=== PATIENT | female | born 1975 | race Caucasian/White ===

== ENCOUNTER 2016-09-03 14:53 | Observation (INO) | payer MEDICARE, OTHER ==
--- NOTE | 2016-09-03 15:56 | ED ---
General Adult HPI - General Chief complaint: Recheck/Abnormal Lab/Rx Stated complaint: Missed Dialysis Treatments Time Seen by Provider: 09/03/16 15:41 Source: patient, family Mode of arrival: wheelchair Limitations: no limitations - History of Present Illness Initial comments: This is a 40-year-old female with a history of diabetes and end-stage renal disease on dialysis who presents emergency department for missing dialysis. The patient used to get her dialysis through Dr. Kermit Morton however moved to [facility] and was in a metal lodged they're getting her dialysis. She was released last week and received her last dialysis approximately 5 days ago. Her last dialysis was supposed to be 2 days ago however her on the couch and she was not able to go to dialysis either then or today. Patient currently denies any symptoms whatsoever. No chest pain or palpitations. No other complaints. - Related Data Home Medications Medication Instructions Recorded Confirmed Atorvastatin [Lipitor] 40 mg PO HS 09/03/16 09/03/16 Levothyroxine Sodium [Synthroid] 25 mcg PO DAILY 09/03/16 09/03/16 NIFEdipine [NIFEdipine ER] 90 mg PO DAILY 09/03/16 09/03/16 OXcarbazepine [Trileptal] 150 mg PO DAILY 09/03/16 09/03/16 Ra Folic Acid 800mcg 1 tab PO DAILY 09/03/16 09/03/16 Sevelamer [Renvela] 800 mg PO TID 09/03/16 09/03/16 Valproic Acid 250 mg PO Q8HR 09/03/16 09/03/16 Allergies Allergy/AdvReac Type Severity Reaction Status Date / Time No Known Allergies Allergy Verified 09/03/16 15:59 Review of Systems ROS Statement: Those systems with pertinent positive or pertinent negative responses have been documented in the HPI. ROS Other: All systems not noted in ROS Statement are negative. Past Medical History Past Medical History: Diabetes Mellitus, Dialysis, Hypertension, Seizure Disorder Additional Past Medical History / Comment(s): blind History of Any Multi-Drug Resistant Organisms: None Reported Additional Past Surgical History / Comment(s): right arm shunt. toes amputation. left foot Past Psychological History: No Psychological Hx Reported Smoking Status: Never smoker Past Alcohol Use History: None Reported Past Drug Use History: None Reported General Exam - General Exam Comments Initial Comments: Constitutional: Awake alert Appears comfortable Head: Normocephalic atraumatic Eyes: no conjunctival injection No scleral icterus EOMI Neck: No JVD Supple Heart: Regular rate rhythm normal S1-S2 no murmurs Lungs: Clear to auscultation bilaterally No wheezing No rales Abdomen: Soft nondistended nontender Extremities: Non edematous DP pulses intact Radial pulses intact Neuro: A&Ox3 No focal neurologic deficits Psych: Appropriate mood and affect Limitations: no limitations Course Vital Signs 09/03/16 09/03/16 15:02 18:19 Temperature 97.9 F Pulse Rate 89 77 Respiratory 20 18 Rate Blood Pressure 136/63 169/77 O2 Sat by Pulse 100 99 Oximetry Medical Decision Making - Medical Decision Making Is a 40-year-old female presents emergency department for missing dialysis. Had no symptoms. She did have an elevated phosphorus however no however significant electrolyte abnormalities. I spoke with Dr. Dial who recommended observation for dialysis. The patient was updated and agrees. EKG showed normal sinus rhythm with a rate of 85. No abnormal ST segment changes or T- wave inversions. QTC is 476. No other interval changes. No ectopy. - Lab Data Result diagrams: 09/03/16 16:00 09/03/16 16:00 Lab Results 09/03/16 09/03/16 Range/Units 16:00 16:00 WBC 7.8 (3.8-10.6) k/uL RBC 2.88 L (3.80-5.40) m/uL Hgb 9.8 L (11.4-16.0) gm/dL Hct 27.6 L (34.0-46.0) % MCV 95.8 (80.0-100.0) fL MCH 33.9 (25.0-35.0) pg MCHC 35.4 (31.0-37.0) g/dL RDW 13.3 (11.5-15.5) % Plt Count 219 (150-450) k/uL Neutrophils % 65 % Lymphocytes % 26 % Monocytes % 6 % Eosinophils % 1 % Basophils % 0 % Neutrophils # 5.1 (1.3-7.7) k/uL Lymphocytes # 2.0 (1.0-4.8) k/uL Monocytes # 0.5 (0-1.0) k/uL Eosinophils # 0.1 (0-0.7) k/uL Basophils # 0.0 (0-0.2) k/uL Sodium 139 (137-145) mmol/L Potassium 4.8 (3.5-5.1) mmol/L Chloride 100 (98-107) mmol/L Carbon Dioxide 19 L (22-30) mmol/L Anion Gap 20 mmol/L BUN 79 H (7-17) mg/dL Creatinine 13.10 H* (0.52-1.04) mg/dL Est GFR (MDRD) Af Amer 4 (>60 ml/min/1.73 sqM) Est GFR (MDRD) Non-Af 3 (>60 ml/min/1.73 sqM) Glucose 110 H (74-99) mg/dL Calcium 10.2 (8.4-10.2) mg/dL Phosphorus 7.7 H (2.5-4.5) mg/dL Magnesium 2.2 (1.6-2.3) mg/dL Total Bilirubin 0.5 (0.2-1.3) mg/dL AST 9 L (14-36) U/L ALT 19 (9-52) U/L Alkaline Phosphatase 72 (38-126) U/L Total Protein 7.3 (6.3-8.2) g/dL Albumin 4.5 (3.5-5.0) g/dL Disposition Clinical Impression: ESRD (end stage renal disease) Disposition: ADMITTED IP TO THIS [facility] Condition: Stable
[2016-09-03 16:08] LABS: Basophils % (A) 0 %; CH 34.4; Eosinophils # (A) 0.1 k/uL (0-0.7); Eosinophils % (A) 1 %; HCT 27.6 % (34.0-46.0); HDW 3.11; HGB 9.8 gm/dL (11.4-16.0); Luc # (Auto) 0.11; Luc % (Auto) 2; Lymphocytes % (A) 26 %; MCH 33.9 pg (25.0-35.0); MCHC 35.4 g/dL (31.0-37.0); MCV 95.8 fL (80.0-100.0); Mean Platelet Volume 7.3; Monocytes # (A) 0.5 k/uL (0-1.0); Monocytes % (A) 6 %; Neutrophils # (A) 5.1 k/uL (1.3-7.7); Neutrophils % (A) 65 %; RBC 2.88 m/uL (3.80-5.40); RDW 13.3 % (11.5-15.5); WBC 7.8 k/uL (3.8-10.6); WBC (Perox) 7.85
[2016-09-03 16:23] LABS: Calcium 10.2 mg/dL (8.4-10.2); Magnesium 2.2 mg/dL (1.6-2.3); Phosphorous 7.7 mg/dL (2.5-4.5); Potassium 4.8 mmol/L (3.5-5.1); Total Bilirubin 0.5 mg/dL (0.2-1.3); Total Protein 7.3 g/dL (6.3-8.2)
[2016-09-03] MEDS ORDERED: NALOXONE 0.4 MG/ML 1 ML VIAL IV PRN (18:12)
[2016-09-03] MEDS: SEVELAMER 800 MG TAB PO SCH (21:40)
[2016-09-03] MEDS: ATORVASTATIN 40 MG TAB PO SCH (21:41)
[2016-09-03] MEDS: VALPROIC ACID ORAL SOLN 250 MG/5 ML CUP PO SCH (21:43)
[2016-09-03] MEDS ORDERED: HYDROcodone/APAP 5-325MG 1 EACH TAB PO PRN (21:55)
[2016-09-03] MEDS ORDERED: TEMAZEPAM 15 MG CAP PO PRN (21:55)
[2016-09-03] MEDS ORDERED: ALPRAZolam 0.25 MG TAB PO PRN (21:55)
--- NOTE | 2016-09-03 22:21 | XR ---
EXAM: XR Chest, 1 View CLINICAL HISTORY: Reason: chf TECHNIQUE: Frontal view of the chest. COMPARISON: None. FINDINGS: Limitations: Note some inherent limitations of the portable nature of the exam and patient body habitus. Also, patient is slightly rotated towards the right. Lungs: Multiple punctate nodular opacities are seen within the right lower lung field. Left lung, right mid and upper lung perez are clear. Pleural space: Unremarkable. No gross pleural effusion, nor pneumothorax. Heart: Mild cardiomegaly. Mediastinum: Within normal limits Bones/joints: Intact, with mild degenerative changes present Vasculature: Vascular stents including along the left subclavian and axillary levels, and an additional overlapping upper extremity stent or graft is present. IMPRESSION: 1. Heterogeneous nodular opacities within the right lower lung field, which may be on an infectious or inflammatory basis including previous aspiration. Comparison to prior studies may be useful to assess for chronicity and guide timing of future follow-up, to reevaluate for clearing. 2. Additional findings as above.
[2016-09-04] MEDS: LEVOTHYROXINE 25 MCG TAB PO SCH (05:59)
--- NOTE | 2016-09-04 08:16 | HP ---
DATE OF ADMISSION: DATE OF SERVICE: 09/03/2016 CHIEF COMPLAINT: Missed hemodialysis. HISTORY OF PRESENT ILLNESS: This 40-year-old woman with a past medical history of multiple medical problems including CVA, TIA, diabetes mellitus type 2, chronic renal failure on hemodialysis, hypertension, pneumonia, seizure disorder, hypothyroidism, history of bilateral blindness because of diabetic retinopathy, being followed by Dr. Andrew Chavez in [place] was recently moved to [place]. The patient was receiving hemodialysis there, but apparently passed a couple of days ago and the patient missed hemodialysis and the patient was taken to [facility] for further evaluation and treatment. There is no history of fever or rigor. No history of headache, loss of consciousness or seizures. Patient is asymptomatic at this time. Apparently the patient has hyperphosphatemia. PAST MEDICAL HISTORY: History of chronic renal failure, diabetes mellitus type 2, on hemodialysis, hypertension, pneumonia, seizure disorder, hypothyroidism. Medications prior to admission include: 1. Renvela 800 mg p.o. t.i.d. 2. Lipitor 40 mg q.h.s. 3. Valproic acid 250 mg p.o. q.8. 4. Folic acid 1 p.o. daily. 5. Synthroid 25 mcg p.o. daily. 6. Trileptal 150 mg p.o. daily. 7. Nifedipine 90 mg p.o. daily. ALLERGIES: None. FAMILY HISTORY: CVA, TIA, myocardial infarction, renal disease and amputation in the family. SOCIAL HISTORY: No history of smoking. No history of alcohol intake. REVIEW OF SYSTEMS: ENT: No diminishing hearing. Diminished vision. CARDIOVASCULAR SYSTEM: As mentioned earlier. RESPIRATORY SYSTEM: As mentioned earlier. GI: No nausea. : No dysuria. NERVOUS SYSTEM: As mentioned earlier. ALLERGY/IMMUNOLOGY: No history of asthma. MUSCULOSKELETAL: As mentioned earlier. HEMATOLOGY/ONCOLOGY: No history of anemia. ENDOCRINE: As mentioned earlier. CONSTITUTIONAL: As mentioned earlier. DERMATOLOGY: Negative. RHEUMATOLOGY: Negative. PSYCHIATRY: As mentioned earlier. OPHTHALMOLOGY: As mentioned earlier. PHYSICAL EXAMINATION: The patient s alert and oriented x3. Pulse is 86, blood pressure 145/67, respirations 18, temperature 98.2, pulse ox 99% on room air. HEENT: Conjunctivae normal. Oral mucosa moist. NECK: ( ) CARDIOVASCULAR: S1 and S2, muffled. No S3, no S4. ( ) RESPIRATORY: Breath sounds diminished at the bases. Scattered rhonchi and crackles. ABDOMEN: Soft, obese, nontender. No mass palpable. LEGS: No edema, no swelling. NERVOUS SYSTEM: Higher function as mentioned. Moves all 4 limbs. No focal motor or sensory deficits. LYMPHATICS: No lymphadenopathy of neck, axillae or groin. SKIN: No ulcers, rashes or bleeding. EXAMINATION OF THE EYES: Vision diminished bilaterally. The labs are EKG at this time shows normal sinus rhythm, no acute changes. Other labs are WBC 7.8, hemoglobin 9.8. Creatinine is 13.10. Glucose 110. ASSESSMENT: 1. Chronic renal failure on hemodialysis and chronic kidney disease stage V on hemodialysis and missed hemodialysis. 2. Increased creatinine. 3. Increased random blood sugar. 4. Anemia, normocytic anemia of chronic disease. 5. History of diabetes mellitus type 2. 6. History of cerebrovascular accident, transient ischemic attack. 7. History of pneumonia. 8. History of seizures disorder. 9. History of hypothyroidism. 10. History of retinal hemorrhage and diabetic retinopathy. 11. History of gait dysfunction and falls. 12. History of left arm shunt. 13. FULL CODE. RECOMMENDATIONS AND DISCUSSION: This 40-year-old woman who presented with multiple complex medical issues, we will monitor the patient closely. Continue the current medications. Continue symptomatic treatment. Otherwise, at this time I would recommend monitor closely and initiate hemodialysis. Repeat labs. Otherwise prognosis is guarded. Would also recommended a portal chest x-ray to rule out the possibility of fluid overload. Prognosis guarded because of multiple complex medical issues. Further recommendations to follow.
[2016-09-04 10:15] LABS: Basophils % (A) 0 %; CH 34.4; CHCM 35.5; Eosinophils # (A) 0.1 k/uL (0-0.7); Eosinophils % (A) 1 %; HCT 26.5 % (34.0-46.0); HDW 2.95; Luc # (Auto) 0.05; Luc % (Auto) 1; Lymphocytes # (A) 1.5 k/uL (1.0-4.8); Lymphocytes % (A) 25 %; MCH 32.9 pg (25.0-35.0); MCHC 33.8 g/dL (31.0-37.0); MCV 97.3 fL (80.0-100.0); Mean Platelet Volume 6.8; Monocytes # (A) 0.3 k/uL (0-1.0); Monocytes % (A) 6 %; Neutrophils # (A) 3.9 k/uL (1.3-7.7); Neutrophils % (A) 67 %; RBC 2.72 m/uL (3.80-5.40); RDW 13.7 % (11.5-15.5); WBC 5.8 k/uL (3.8-10.6); WBC (Perox) 5.77
[2016-09-04 10:43] LABS: Calcium 9.2 mg/dL (8.4-10.2); Potassium 3.9 mmol/L (3.5-5.1)
[2016-09-04] MEDS ORDERED: GELATIN SPONGE,ABSORB (SMALL) 1 EACH SPONGE ONE (11:00)
[2016-09-04] MEDS: VALPROIC ACID ORAL SOLN 250 MG/5 ML CUP PO SCH ×3 (11:52→23:18)
[2016-09-04] MEDS: FOLIC ACID 1 MG TAB PO SCH (11:52)
[2016-09-04] MEDS: PANTOPRAZOLE 40 MG TABLET PO SCH (11:52)
[2016-09-04] MEDS: OXcarbazepine 150 MG TAB PO SCH (11:53)
[2016-09-04] MEDS: NIFEdipine XL 90 MG TAB.ER.24 PO SCH (11:53)
[2016-09-04] MEDS: SEVELAMER 800 MG TAB PO SCH ×3 (11:53→20:50)
--- NOTE | 2016-09-04 13:58 | P.NPCON ---
History of Present Illness - Reason for Consult end stage renal disease - History of Present Illness Reason for consultation: End-stage renal disease History of present illness: Patient is a 40-year-old female seen in renal consultation for end- stage renal disease. She is maintained on hemodialysis on a Thursday schedule via right upper extremity AV fistula. Patient was receiving dialysis in [place], [place]. She missed 2 treatments of hemodialysis prior to admission due to her 's . She is currently now living in [place] with her sister. She underwent hemodialysis this morning. A She is currently sitting up in chair. Denies any chest pain or shortness of breath. Denies lower extremity edema. No vomiting or diarrhea. Appetite is good. Hemodynamically she is stable. No active complaints at this time. Vital signs are stable. General: The patient appeared well nourished and normally developed. HEENT: Head exam is unremarkable. Neck is without jugular venous distension. LUNGS: Lungs are clear to auscultation and percussion. Breath sounds decreased. HEART: Rate and Rhythm are regular. First and second heart sounds normal. No murmurs, rubs or gallops. ABDOMEN: Abdominal exam reveals normal bowel sounds. Non-tender and non- distended. No evidence of peritonitis. EXTREMITITES: No clubbing, cyanosis, or edema. Past Medical History Past Medical History: CVA/TIA, Diabetes Mellitus, Dialysis, Hypertension, Pneumonia, Renal Disease, Seizure Disorder, Thyroid Disorder Additional Past Medical History / Comment(s): "BLEEDING BEHIND EYES", LT CATARACT(HAD SX W/LENS IMPLANT) STATED LEGALLY BLIND.PAST PNE-"WAS IN HOSPITAL AND HAD A STROKE( 2009) WAS IN [facility] FOR 5 MONTHS ON LIFE SUPPORT", HX FALLS-HAS FALLEN AND HIT FACE/HEAD,CONCUSSIONS.USED TO TAKE MEDS FOR [facility] BUT WHEN AT [facility] WAS TAKEN OFF MEDICATIONS. CHECKS BS DAILY, LAST SEIZURE FEW MONTHS AGO. ESRD GETS DIALYSIS M-W-F History of Any Multi-Drug Resistant Organisms: None Reported Past Surgical History: Section, Tubal Ligation Additional Past Surgical History / Comment(s): right arm shunt(ACTIVE), ( LT ARM SHUNT CLOGGED NON FUNCTIONING). toes amputated ON LT FOOT. PARTIAL left foot AMP, LT CATARACT REMOVED HAS LENS IMPLANT Past Anesthesia/Blood Transfusion Reactions: No Reported Reaction Past Psychological History: No Psychological Hx Reported Additional Psychological History / Comment(s): pt's just on thursday( is on thursday), has saddness over this but denies any thoughts of wanting to harm self. pt is and will be living with her sister cammie who willalso be her caregiver.pt had just gotten [facility] last sat.pt uses walker, w/c and has bsc at home. Smoking Status: Never smoker Past Alcohol Use History: None Reported Past Drug Use History: None Reported - Past Family History Mother Family Medical History: CVA/TIA, Myocardial Infarction (IA), Renal Disease Father Family Medical History: Congestive Heart Failure (CHF), CVA/TIA, Diabetes Mellitus, Hypertension, Vascular Disorder Additional Family Medical History / Comment(s): bka Medications and Allergies Home Medications Medication Instructions Recorded Confirmed Type Atorvastatin [Lipitor] 40 mg PO HS 09/03/16 09/03/16 History Levothyroxine Sodium [Synthroid] 25 mcg PO DAILY 09/03/16 09/03/16 History NIFEdipine [NIFEdipine ER] 90 mg PO DAILY 09/03/16 09/03/16 History OXcarbazepine [Trileptal] 150 mg PO DAILY 09/03/16 09/03/16 History Ra Folic Acid 800mcg 1 tab PO DAILY 09/03/16 09/03/16 History Sevelamer [Renvela] 800 mg PO TID 09/03/16 09/03/16 History Valproic Acid 250 mg PO Q8HR 09/03/16 09/03/16 History Allergies Allergy/AdvReac Type Severity Reaction Status Date / Time No Known Allergies Allergy Verified 09/03/16 15:59 Physical Exam Vitals: Vital Signs Temp Pulse Pulse Resp BP BP Pulse Ox 09/04/16 07:00 98.5 F 88 14 154/73 98 09/03/16 23:00 98.4 F 94 18 136/60 99 09/03/16 19:00 98.3 F 86 18 145/67 99 09/03/16 18:47 97.4 F L 80 16 156/71 100 09/03/16 18:19 77 18 169/77 99 09/03/16 15:02 97.9 F 89 20 136/63 100 Intake and Output 09/03/16 09/04/16 09/04/16 22:59 06:59 14:59 Intake Total 450 350 Balance 450 350 Intake: Oral 450 350 Other: Voiding Method Bedside Commode # Voids 1 2 Weight 88.088 kg Results - Lab Results Most recent lab results Calcium 9.2 mg/dL (8.4-10.2) 09/04/16 09:12 Phosphorus 7.7 mg/dL (2.5-4.5) H 09/03/16 16:00 Magnesium 2.2 mg/dL (1.6-2.3) 09/03/16 16:00 09/04/16 09:12 09/04/16 09:12 Assessment and Plan Plan: Assessment: #1. End-stage renal disease maintained on hemodialysis on a Thursday schedule via right upper extremity AV fistula. She missed 2 treatments of hemodialysis prior to admission due to her 's . She underwent hemodialysis this morning. #2. Chronic kidney disease mineral bone disease. #3. Hypertension with chronic kidney disease. Controlled. #4. History of seizures. #5. Anemia of chronic kidney disease. Plan: Hemodialysis again tomorrow. Maintain Renvela with meals. Start Aranesp. Potential discharge tomorrow and then she can resume dialysis as an outpatient at [facility] on a Thursday schedule. Thank you for the consultation. I will continue to follow the patient with you during her hospital stay.
[2016-09-04] MEDS ORDERED: DARBEPOETIN ALFA 40 MCG/0.4 ML SYRINGE SQ SCH (15:00)
--- NOTE | 2016-09-04 16:51 | P.PN ---
Subjective Date of service 09/04/2016. Progress note being dictated for Dr. Fernandez. Interval history: This is a 40-year-old female with history of chronic kidney disease on hemodialysis and multiple other medical issues, missed 2 episodes of hemodialysis prior to her 's a couple days ago. Relocated from [place] to [place]. Evaluated by nephrology with recommendations noted. Receiving hemodialysis today and tomorrow. Chest x-ray reporting heterogenous nodular opacity's of right lower lung field possibly infectious or inflammatory. Denies chest pain, palpitations. Review of systems: HEENT: Denies headache or focal deficits. Denies any dizziness or lightheadedness. Respiratory: Denies shortness of breath. Cardiac: Denies any chest pain, palpitations. GI: Denies any nausea, vomiting, or diarrhea. Denies any abdominal tenderness. : Denies any dysuria. Psychiatry: Denies any anxiety or depression. Active Medications Generic Name Dose Route Start Last Admin Trade Name Freq PRN Reason Stop Dose Admin Hydrocodone Bitart/Acetaminophen 1 each 09/03/16 21:55 [place] 5-325 PO Q6HR PRN Pain Alprazolam 0.25 mg 09/03/16 21:55 Xanax PO TID PRN Anxiety Atorvastatin Calcium 40 mg 09/03/16 21:00 09/03/16 21:41 Lipitor PO 40 mg HS JAGUAR Administration Darbepoetin Ash 40 mcg 09/04/16 15:00 09/04/16 15:38 Aranesp SQ 40 mcg Q7D JAGUAR Administration Folic Acid 1 mg 09/04/16 09:00 09/04/16 11:52 Folic Acid PO 1 mg DAILY JAGUAR Administration Levothyroxine Sodium 25 mcg 09/04/16 06:30 09/04/16 05:59 Synthroid PO 25 mcg 0630 JAGUAR Administration Naloxone HCl 0.2 mg 09/03/16 18:12 Narcan IV Q2M PRN Opioid Reversal Nifedipine 90 mg 09/04/16 09:00 09/04/16 11:53 Procardia Xl PO 90 mg DAILY JAGUAR Administration Oxcarbazepine 150 mg 09/04/16 09:00 09/04/16 11:53 Trileptal PO 150 mg DAILY JAGUAR Administration Pantoprazole Sodium 40 mg 09/04/16 07:30 09/04/16 11:52 Protonix PO 40 mg [id number] JAGUAR Administration Sevelamer Carbonate 800 mg 09/03/16 22:00 09/04/16 15:39 Renvela PO 800 mg TID JAGUAR Administration Temazepam 15 mg 09/03/16 21:55 Restoril PO HS PRN Insomnia Valproic Acid 250 mg 09/04/16 00:00 09/04/16 15:38 Depakene Syrup PO 250 mg Q8HR JAGUAR Administration Objective - Vital Signs Vital signs: Vital Signs Temp 98.1 F 09/04/16 15:00 Pulse 83 09/04/16 15:00 Resp 16 09/04/16 15:00 BP 162/85 09/04/16 15:00 Pulse Ox 100 09/04/16 15:00 Intake & Output 09/03/16 09/04/16 09/04/16 18:59 06:59 18:59 Intake Total 800 Output Total 200 Balance 800 -200 Weight 88.088 kg Intake: Oral 800 Output: Urine 200 Other: Voiding Method Bedside Commode # Voids 2 - Exam PHYSICAL EXAM: VITAL SIGNS: As above GENERAL: [Sitting up in bed, no acute distress] HEENT: [Pupils equal conjunctiva normal.] NECK: [Supple, no JVD] RESPIRATORY EFFORT:[ Normal] LUNGS: [Diminished, scattered rhonchi and crackles] CARDIOVASCULAR[ regular S1 and S2, no murmurs rubs or gallops, no edema] GI: [Abdomen soft, nontender, positive bowel sounds. No guarding, no rigidity] PSYCH: [Alert and oriented -3, mood and affect normal.] NEURO: [No focal deficits, moves all 4 extremities, strength and sensation grossly intact] - Labs CBC & Chem 7: 09/04/16 09:12 09/04/16 09:12 Labs: Abnormal Lab Results - Last 24 Hours (Table) 09/03/16 09/04/16 09/04/16 Range/Units 16:00 09:12 09:12 RBC 2.72 L (3.80-5.40) m/uL Hgb 9.0 L (11.4-16.0) gm/dL Hct 26.5 L (34.0-46.0) % BUN 50 H (7-17) mg/dL Creatinine 13.10 H* 7.55 H* (0.52-1.04) mg/dL Assessment and Plan Plan: 1. Chronic renal failure, stage IV on hemodialysis, missed hemodialysis. 2. [ Anemia, normocytic of chronic disease]. 3. [ Diabetes mellitus type 2]. 4. [ CVA, TIA history]. 5. [ Seizure disorder history]. 6. [ Hypothyroidism]. 7. [ History of retinal hemorrhage and diabetic retinopathy 8. Gait dysfunction with history of falls]. 9. Left arm shunt 10. Heterogenous nodular opacity's of right lower lung field possibly infectious or inflammatory per CXR, possible right lower lobe pneumonia. Plan: Continue on current medication regime ,monitoring and symptomatic treatment. Rocephin initiated along with pulmonary consult. Patient will receive hemodialysis both today and tomorrow. Case management to assist/ confirm dialysis clinic set up in [place]. Follow closely with nephrology. Discharge planning in progress. Further recommendations to follow. The impression and plan of care has been dictated as directed. : I performed a H&P examination of this patient and discussed the same with the dictator. I agree with the dictator's note. Any additional findings/opinions/ etc. will be noted.
[2016-09-04] MEDS: ATORVASTATIN 40 MG TAB PO SCH (20:50)
[2016-09-04 23:54] VITALS: RESP 18
[2016-09-05] MEDS: LEVOTHYROXINE 25 MCG TAB PO SCH (06:03)
[2016-09-05] MEDS: FOLIC ACID 1 MG TAB PO SCH (07:52)
[2016-09-05] MEDS: PANTOPRAZOLE 40 MG TABLET PO SCH (07:52)
[2016-09-05] MEDS: NIFEdipine XL 90 MG TAB.ER.24 PO SCH (07:52)
[2016-09-05] MEDS: VALPROIC ACID ORAL SOLN 250 MG/5 ML CUP PO SCH (07:54)
[2016-09-05] MEDS: OXcarbazepine 150 MG TAB PO SCH (07:54)
[2016-09-05] MEDS: SEVELAMER 800 MG TAB PO SCH (07:54)
[2016-09-05 07:58] VITALS: BP 136/73; PULSE 89; TEMP 98.4
[2016-09-05] MEDS ORDERED: GELATIN SPONGE,ABSORB (SMALL) 1 EACH SPONGE ONE (08:00)
[2016-09-05 08:38] LABS: Basophils % (A) 0 %; CH 34.1; CHCM 34.5; Eosinophils # (A) 0.1 k/uL (0-0.7); Eosinophils % (A) 2 %; HCT 26.1 % (34.0-46.0); HDW 2.98; HGB 8.8 gm/dL (11.4-16.0); Luc # (Auto) 0.05; Luc % (Auto) 1; Lymphocytes # (A) 1.8 k/uL (1.0-4.8); Lymphocytes % (A) 37 %; MCH 33.3 pg (25.0-35.0); MCHC 33.6 g/dL (31.0-37.0); MCV 99.3 fL (80.0-100.0); Mean Platelet Volume 6.8; Monocytes # (A) 0.4 k/uL (0-1.0); Monocytes % (A) 7 %; Neutrophils # (A) 2.5 k/uL (1.3-7.7); Neutrophils % (A) 53 %; RBC 2.63 m/uL (3.80-5.40); RDW 13.4 % (11.5-15.5); WBC 4.8 k/uL (3.8-10.6); WBC (Perox) 4.71
[2016-09-05 08:47] LABS: Calcium 9.5 mg/dL (8.4-10.2); Potassium 4.5 mmol/L (3.5-5.1)
--- NOTE | 2016-09-05 11:31 | PN ---
DATE OF SERVICE: 09/04/2016 This 40-year-old woman admitted with missed hemodialysis, being closely monitored. Chest x-ray showed multiple lesions in the right side. I would recommend a course of antibiotics. I have seen and evaluated the patient with the nurse practitioner. Please refer to the nurse practitioner's notes and impressions documented as scribe for further information. Otherwise, discussed with Social Work and Case Management. The patient can get hemodialysis tomorrow and the next hemodialysis next week will be arranged. The prognosis is guarded. Please note that the patient lost her recently.
--- NOTE | 2016-09-05 13:33 | PN ---
Patient is seen for followup for end-stage renal disease. She is set up for a Thursday, , Thursday schedule as outpatient. She was initially being dialyzed out of [place]. She is now living in [place]. Patient has a right arm AV fistula. On examination, she is comfortable. She is seen on dialysis, tolerating her treatment well. Blood pressure is 131/57, heart rate 96 per minute. Patient is afebrile. She appears euvolemic with no significant edema in her lower extremities. Labs show sodium 138, potassium 4.5. Hemoglobin 8.8 g/dL. ASSESSMENT: 1. End-stage renal disease on hemodialysis. Patient will be set up for Thursday, , Thursday schedule. 2. Anemia of chronic disease. 3. Hypertension, currently controlled. PLAN: Patient can be discharged post dialysis and follow up as outpatient for treatment tomorrow.
--- NOTE | 2016-09-05 13:42 | P.CNPUL ---
History of Present Illness Consult date: 09/05/16 Reason for consult: pneumonia History of present illness: This is a 40-year-old female with a history of diabetes and end-stage renal disease on dialysis who presents emergency department for missing dialysis. The patient used to get her dialysis through Dr. Kermit Morton however moved to [facility] and was in a metal lodged they're getting her dialysis. She was released last week and received her last dialysis approximately 5 days ago. Her last dialysis was supposed to be 2 days ago however her on the couch and she was not able to go to dialysis either then or today. She'll presented emergency department for that reason. The patient denies having any symptoms of chest pain cough or sputum production. No hemoptysis. No pleurisy pain no fever chills or night sweats. No significant fluid accumulation. Her chest x-ray showed some limited infiltration of the right lung base and pneumonia was suspected. Clinically however the patient denies having any respiratory complaints whatsoever. She was given IV Rocephin. She remains hemodynamically stable. She underwent a session of hemodialysis today and she'll be set with our nephrologists here in town for further dialysis sessions. She is an ex-smoker. She denies any history of bronchial asthma and emphysema. No oxygen use. No use of any inhalers or neb last medication. She has no angina. As complications of diabetes mellitus and hypertension. She has an incisional disease and she has been on hemodialysis for the past 3 years. She has also had peripheral vascular disease and diabetic wound and she has had previous inpatient and left lower extremity involving the toes. No open wounds or sores for now. No nausea vomiting or abdominal pain. Has had a previous CVA that was complete. By prolonged respiratory failure requiring insertion and subsequent removal of a tracheostomy tube. Ostomy scar can still be seen over the anterior neck area. No stridor at this point. No difficulty swallowing. No symptoms of URI. No altered mentation at this point. Review of Systems All systems: negative Constitutional: Denies chills, Denies fever Eyes: denies blurred vision, denies pain Ears, nose, mouth and throat: Denies headache, Denies sore throat Cardiovascular: Reports as per HPI, Reports shortness of breath Respiratory: Reports cough Gastrointestinal: Denies abdominal pain, Denies diarrhea, Denies nausea, Denies vomiting Genitourinary: Denies dysuria, Denies hematuria Musculoskeletal: Denies myalgias Integumentary: Denies pruritus, Denies rash Neurological: Denies numbness, Denies weakness Psychiatric: Denies anxiety, Denies depression Endocrine: Denies fatigue, Denies weight change Past Medical History Past Medical History: CVA/TIA, Diabetes Mellitus, Dialysis, Hypertension, Renal Disease, Seizure Disorder, Thyroid Disorder Additional Past Medical History / Comment(s): Obesity, diabetes mellitus, end- stage renal disease currently on hemodialysis for the past 3 years, CVA, seizure disorder, hypothyroidism, previous history of ventilator dependent respiratory failure requiring a tracheostomy tube insertion for weaning, cataracts, patient is legally blind with possible diabetic retinopathy, hx of head trauma and concussion, hypertension History of Any Multi-Drug Resistant Organisms: None Reported Past Surgical History: Section, Tubal Ligation Additional Past Surgical History / Comment(s): right arm shunt(ACTIVE), ( LT ARM SHUNT CLOGGED NON FUNCTIONING). toes amputated ON LT FOOT. PARTIAL left foot AMP, LT CATARACT REMOVED HAS LENS IMPLANT Past Anesthesia/Blood Transfusion Reactions: No Reported Reaction Past Psychological History: No Psychological Hx Reported Additional Psychological History / Comment(s): pt's just on thursday( is on thursday), has saddness over this but denies any thoughts of wanting to harm self. pt is and will be living with her sister cammie who willalso be her caregiver.pt had just gotten out of [facility] last sat.pt uses walker, w/c and has bsc at home. Smoking Status: Never smoker Past Alcohol Use History: None Reported Past Drug Use History: None Reported - Past Family History Mother Family Medical History: CVA/TIA, Myocardial Infarction ([place]), Renal Disease Father Family Medical History: Congestive Heart Failure (CHF), CVA/TIA, Diabetes Mellitus, Hypertension, Vascular Disorder Additional Family Medical History / Comment(s): bka Medications and Allergies Home Medications Medication Instructions Recorded Confirmed Type Atorvastatin [Lipitor] 40 mg PO HS 09/03/16 09/03/16 History Levothyroxine Sodium [Synthroid] 25 mcg PO DAILY 09/03/16 09/03/16 History NIFEdipine [NIFEdipine ER] 90 mg PO DAILY 09/03/16 09/03/16 History OXcarbazepine [Trileptal] 150 mg PO DAILY 09/03/16 09/03/16 History Ra Folic Acid 800mcg 1 tab PO DAILY 09/03/16 09/03/16 History Sevelamer [Renvela] 800 mg PO TID 09/03/16 09/03/16 History Valproic Acid 250 mg PO Q8HR 09/03/16 09/03/16 History Allergies Allergy/AdvReac Type Severity Reaction Status Date / Time No Known Allergies Allergy Verified 09/03/16 15:59 Physical Exam Vitals: Vital Signs Temp Pulse Resp BP Pulse Ox 09/05/16 07:00 98.4 F 89 18 136/73 98 09/04/16 23:00 99.0 F 96 18 131/57 99 09/04/16 15:00 98.1 F 83 16 162/85 100 Intake and Output 09/04/16 09/05/16 09/05/16 22:59 06:59 14:59 Intake Total 350 Balance 350 Intake: Oral 350 Other: Voiding Method Bedside Commode # Voids 1 1 # Bowel Movements 1 Head exam was generally normal. There was no scleral icterus or corneal arcus. Mucous membranes were moist.Neck was supple and without jugular venous distension, thyromegaly, or carotid bruits. Carotids were easily palpable bilaterally. There was no adenopathy. There is a scar of a previous tracheostomy tube insertion and subsequent removal over the anterior chest area.Lungs were clear to auscultation and percussion, and with normal diaphragmatic excursion. No wheezes or rales were noted. Cardiac exam revealed the PMI to be normally situated and sized. The rhythm was regular and no extrasystoles were noted during several minutes of auscultation. The first and second heart sounds were normal and physiologic splitting of the second heart sound was noted. There were no murmurs, rubs, clicks, or gallops.Abdominal exam revealed normal bowel sounds. The abdomen was soft, non-tender, and without masses, organomegaly, or appreciable enlargement of the abdominal aorta.Examination of the extremities revealed easily palpable radial, femoral and pedal pulses, the pulses however are diminished.. There was no cyanosis, clubbing or edema. The patient has a AV fistula in the left upper extremity is in position of the left toes in the left lower extremity secondary Vascular disease. Results - Laboratory Findings CBC and BMP: 09/05/16 08:15 09/05/16 08:15 Abnormal lab findings: Abnormal Labs 09/03/16 09/03/16 09/04/16 16:00 16:00 09:12 RBC 2.88 L 2.72 L Hgb 9.8 L 9.0 L Hct 27.6 L 26.5 L Carbon Dioxide 19 L BUN 79 H Creatinine 13.10 H* Glucose 110 H Phosphorus 7.7 H AST 9 L 09/04/16 09/05/16 09/05/16 09:12 08:15 08:15 RBC 2.63 L Hgb 8.8 L Hct 26.1 L Carbon Dioxide BUN 50 H 38 H Creatinine 7.55 H* 7.33 H* Glucose 113 H Phosphorus AST - Diagnostic Findings Chest x-ray: image reviewed Assessment and Plan Plan: 1 End stage renal disease on hemodialysis. The patient has missed dialysis for social reasons and the patient needs to be established with nephrology locally as the patient requires dialysis 3 times a week. The patient underwent first session of hemodialysis today. 2 limited infiltration of the lung bases, could be component of fluid overload, no clinical evidence of any pneumonia. 3 obesity 4 diabetes mellitus 5 PVOD 6 hypertension 7 hypothyroidism 8 diabetic retinopathy with legal blindness 9 history of CVA 10 history of prolonged ventilator dependent respiratory failure requiring insertion removal of tracheostomy tube 11 chronic anemia Plan Doubt any pneumonia. Patient currently is on IV Rocephin. May continue the course of Zmax 500 mg by mouth daily. Discharge per medicine. The patient needs to be seen by case workers to be established for dialysis locally. She is dialysis 3 times a week. Pulmonary status is stable at this point.
--- NOTE | 2016-09-06 15:23 | DS ---
DATE OF ADMISSION: 09/03/2016 DATE OF DISCHARGE: 09/05/2016 FINAL DIAGNOSES: 1. Chronic renal failure, stage IV, on hemodialysis, with missed hemodialysis. 2. Anemia, normocytic; anemia of chronic disease. 3. Diabetes mellitus, type 2. 4. Cerebrovascular accident, transient ischemic attack history. 5. Limited infiltration of the lung bases, possibly fluid overload secondary to hemodialysis. No evidence of pneumonia per Dr. Kohli. 6. Seizure disorder history. 7. History of hypothyroidism. 8. History of retinal hemorrhage and diabetic retinopathy. 9. History of gait dysfunction and falls. 10. History of left arm shunt. 11. Heterogeneous nodular opacity in the right lower field on the chest x-ray. DISCHARGE DISPOSITION: The patient will be discharged in stable condition with guarded prognosis. HISTORY OF PRESENT ILLNESS: This 40-year-old woman with a past medical history of multiple medical problems was admitted with missed hemodialysis and multiple other findings as listed above. Dialysis continued and patient improved significantly. On exam, vitals are stable. CARDIOVASCULAR SYSTEM: S1, S2 muffled. ABDOMEN: Soft. RESPIRATORY SYSTEM: Breath sounds diminished at the bases. No rhonchi. No crackles. DISCHARGE ADVICE AND MEDICATIONS: 1. Diet is cardiac. 2. Activity limited until followup. 3. Follow up with Dr. Dial in 2 to 3 days. 4. Follow up with Dr. Andrew Chavez in 2 to 3 days. 5. Lipitor 40 mg at bedtime. 6. Ceftin 500 mg q.48 hours for 5 days. 7. Folic acid 1 mg p.o. daily. 8. Synthroid 25 mcg p.o. daily. 9. Nifedipine ER 90 mg p.o. daily. 10. Trileptal 150 mg p.o. daily. 11. Protonix 40 mg daily. 12. Folic acid 800 mcg p.o. daily. 13. Renvela 800 mg p.o. t.i.d. 14. Valproic acid 250 mg p.o. q.8. Once again, the patient will be discharged in stable condition with guarded prognosis.
== END 2016-09-05 12:34 | disposition home or self-care (01) ==
LOC: EC 14:53 → INTOOBSV 18:12 → 4MS4W 18:12
PROVIDERS: ADMIT Hospitalist; ATTEND Hospitalist
DX: E11.22 Type 2 diabetes mellitus with diabetic chronic kidney disease (principal); I12.0 Hypertensive chronic kidney disease with stage 5 chronic kidney disease or end stage renal disease; N18.6 End stage renal disease; Z99.2 Dependence on renal dialysis; Z86.73 Personal history of transient ischemic attack (TIA), and cerebral infarction without residual deficits; H54.8 Legal blindness, as defined in USA; E11.51 Type 2 diabetes mellitus with diabetic peripheral angiopathy without gangrene; E11.319 Type 2 diabetes mellitus with unspecified diabetic retinopathy without macular edema; E03.9 Hypothyroidism, unspecified; E66.9 Obesity, unspecified; R26.9 Unspecified abnormalities of gait and mobility; D63.1 Anemia in chronic kidney disease; G40.909 Epilepsy, unspecified, not intractable, without status epilepticus; Z79.899 Other long term (current) drug therapy; Z82.49 Family history of ischemic heart disease and other diseases of the circulatory system; Z91.81 History of falling; Z87.891 Personal history of nicotine dependence; Z68.30 Body mass index [BMI] 30.0-30.9, adult
CPT/HCPCS: 96365; 96366; 96372; 99284; 36415; 93005; 80053; 80048 ×2; 83735; 84100; 85025 ×3; 71010; G0378 ×2; G0257 ×2; J0696 ×2; J0881; 90935

== ENCOUNTER 2016-10-04 14:34 | Emergency (ER) | payer MEDICARE, OTHER ==
[2016-10-04 14:42] VITALS: RESP 18
--- NOTE | 2016-10-04 15:03 | ED ---
General Adult HPI - General Chief complaint: Seizure Stated complaint: SEIZURE Time Seen by Provider: 10/04/16 14:40 Source: patient, EMS, RN notes reviewed Mode of arrival: EMS Limitations: no limitations - History of Present Illness Initial comments: This is a 40-year-old female presents to the emergency room with a past medical history significant for renal failure and dialysis as well as a seizure history. Patient states she has a seizure about once a month and she had a seizure today at dialysis it lasted less than a minute and she is currently alert and oriented 3. Patient states this is been about a month since her last seizure. Patient denies any recent fever chills or cough. Patient denies any chest pain palpitations or difficulty breathing recently. Patient denies any nausea vomiting diarrhea. Patient denies abdominal pain. Patient denies headache. Patient denies numbness or weakness that are focal. Patient denies any lightheadedness dizziness or near syncopal episode. Patient states she had the sensation of seizures going to occur she told the staff at the dialysis center and shortly thereafter she had a seizure. Patient states currently she has no complaints. - Related Data Home Medications Medication Instructions Recorded Confirmed Atorvastatin [Lipitor] 40 mg PO HS 09/03/16 10/04/16 Levothyroxine Sodium [Synthroid] 25 mcg PO DAILY 09/03/16 10/04/16 NIFEdipine [NIFEdipine ER] 90 mg PO DAILY 09/03/16 10/04/16 OXcarbazepine [Trileptal] 150 mg PO DAILY 09/03/16 10/04/16 Sevelamer [Renvela] 800 mg PO TID 09/03/16 10/04/16 Valproic Acid 250 mg PO Q8HR 09/03/16 10/04/16 Previous Rx's Medication Instructions Recorded Folic Acid 1 mg PO DAILY #30 tab 09/05/16 Pantoprazole [Protonix] 40 mg PO AC-BRKFST #30 tab 09/05/16 Allergies Allergy/AdvReac Type Severity Reaction Status Date / Time No Known Allergies Allergy Verified 10/04/16 15:19 Review of Systems ROS Statement: Those systems with pertinent positive or pertinent negative responses have been documented in the HPI. ROS Other: All systems not noted in ROS Statement are negative. Past Medical History Past Medical History: CVA/TIA, Diabetes Mellitus, Dialysis, Hypertension, Renal Disease, Seizure Disorder, Thyroid Disorder Additional Past Medical History / Comment(s): Obesity, diabetes mellitus, end- stage renal disease currently on hemodialysis for the past 3 years, CVA, seizure disorder, hypothyroidism, previous history of ventilator dependent respiratory failure requiring a tracheostomy tube insertion for weaning, cataracts, patient is legally blind with possible diabetic retinopathy, hx of head trauma and concussion, hypertension History of Any Multi-Drug Resistant Organisms: None Reported Past Surgical History: Section, Tubal Ligation Additional Past Surgical History / Comment(s): right arm shunt(ACTIVE), ( LT ARM SHUNT CLOGGED NON FUNCTIONING). toes amputated ON LT FOOT. PARTIAL left foot AMP, LT CATARACT REMOVED HAS LENS IMPLANT Past Anesthesia/Blood Transfusion Reactions: No Reported Reaction Past Psychological History: No Psychological Hx Reported Smoking Status: Never smoker Past Alcohol Use History: None Reported Past Drug Use History: None Reported - Past Family History Mother Family Medical History: CVA/TIA, Myocardial Infarction ([place]), Renal Disease Father Family Medical History: Congestive Heart Failure (CHF), CVA/TIA, Diabetes Mellitus, Hypertension, Vascular Disorder Additional Family Medical History / Comment(s): bka General Exam - General Exam Comments Initial Comments: GENERAL: Patient is well-developed and well-nourished. Patient is nontoxic and well- hydrated and is in no acute distress. ENT: Neck is soft and supple. No significant lymphadenopathy is noted. Oropharynx is clear. Moist mucous membranes. Neck has full range of motion without eliciting any pain. EYES: The sclera were anicteric and conjunctiva were pink and moist. Extraocular movements were intact and pupils were equal round and reactive to light. Eyelids were unremarkable. PULMONARY: Unlabored respirations. Good breath sounds bilaterally. No audible rales rhonchi or wheezing was noted. CARDIOVASCULAR: There is a regular rate and rhythm without any murmurs gallops or rubs. ABDOMEN: Soft and nontender with normal bowel sounds. No palpable organomegaly was noted. There is no palpable pulsatile mass. SKIN: Skin is clear with no lesions or rashes and otherwise unremarkable. NEUROLOGIC: Patient is alert and oriented x3. Cranial nerves II through XII are grossly intact. Motor and sensory are also intact. Normal speech, volume and content. Symmetrical smile. MUSCULOSKELETAL: Normal extremities with adequate strength and full range of motion. No lower extremity swelling or edema. No calf tenderness. LYMPHATICS: No significant lymphadenopathy is noted PSYCHIATRIC: Normal psychiatric evaluation. Normal interpersonal interactions appears functionally intact in deals appropriately with others. No signs of depression. No signs of anxiety. Limitations: no limitations Course Vital Signs 10/04/16 10/04/16 10/04/16 14:36 15:37 16:00 Temperature 98.1 F Pulse Rate 87 81 78 Respiratory 18 18 18 Rate Blood Pressure 141/65 137/60 152/68 O2 Sat by Pulse 100 100 100 Oximetry Medical Decision Making - Medical Decision Making EKG shows normal sinus rhythm at 87 bpm VT interval is 168 QRSs 128 QT interval 426 QTC is 512. Patient's EKG shows no ST segment elevation or depression. - Lab Data Result diagrams: 10/04/16 14:50 10/04/16 14:50 Lab Results 10/04/16 10/04/16 Range/Units 14:50 14:50 WBC 5.3 (3.8-10.6) k/uL RBC 3.11 L (3.80-5.40) m/uL Hgb 10.3 L (11.4-16.0) gm/dL Hct 29.3 L (34.0-46.0) % MCV 94.0 D (80.0-100.0) fL MCH 33.0 (25.0-35.0) pg MCHC 35.2 (31.0-37.0) g/dL RDW 14.0 (11.5-15.5) % Plt Count 259 (150-450) k/uL Neutrophils % 69 % Lymphocytes % 22 % Monocytes % 6 % Eosinophils % 1 % Basophils % 1 % Neutrophils # 3.7 (1.3-7.7) k/uL Lymphocytes # 1.2 (1.0-4.8) k/uL Monocytes # 0.3 (0-1.0) k/uL Eosinophils # 0.1 (0-0.7) k/uL Basophils # 0.0 (0-0.2) k/uL Sodium 136 L (137-145) mmol/L Potassium 3.9 (3.5-5.1) mmol/L Chloride 92 L (98-107) mmol/L Carbon Dioxide 30 (22-30) mmol/L Anion Gap 14 mmol/L BUN 17 (7-17) mg/dL Creatinine 4.20 H (0.52-1.04) mg/dL Est GFR (MDRD) Af Amer 14 (>60 ml/min/1.73 sqM) Est GFR (MDRD) Non-Af 12 (>60 ml/min/1.73 sqM) Glucose 211 H (74-99) mg/dL Calcium 9.5 (8.4-10.2) mg/dL Total Bilirubin 0.4 (0.2-1.3) mg/dL AST 11 L (14-36) U/L ALT 24 (9-52) U/L Alkaline Phosphatase 112 (38-126) U/L Total Protein 6.9 (6.3-8.2) g/dL Albumin 4.1 (3.5-5.0) g/dL Valproic Acid 40.2 ug/mL Disposition Clinical Impression: Generalized seizure Disposition: HOME SELF-CARE Condition: Good Instructions: Recurrent Seizures in Adults (ED) Referrals: None,Stated [Primary Care Provider] - 1-2 days Time of Disposition: 16:46
[2016-10-04 15:11] LABS: Basophils % (A) 1 %; CH 33.2; CHCM 35.5; Eosinophils # (A) 0.1 k/uL (0-0.7); Eosinophils % (A) 1 %; HCT 29.3 % (34.0-46.0); HDW 3.23; HGB 10.3 gm/dL (11.4-16.0); Luc # (Auto) 0.07; Luc % (Auto) 1; Lymphocytes # (A) 1.2 k/uL (1.0-4.8); Lymphocytes % (A) 22 %; MCHC 35.2 g/dL (31.0-37.0); Mean Platelet Volume 6.8; Monocytes # (A) 0.3 k/uL (0-1.0); Monocytes % (A) 6 %; Neutrophils # (A) 3.7 k/uL (1.3-7.7); Neutrophils % (A) 69 %; RBC 3.11 m/uL (3.80-5.40); WBC 5.3 k/uL (3.8-10.6); WBC (Perox) 6.03
[2016-10-04 15:24] LABS: Calcium 9.5 mg/dL (8.4-10.2); Potassium 3.9 mmol/L (3.5-5.1); Total Bilirubin 0.4 mg/dL (0.2-1.3); Total Protein 6.9 g/dL (6.3-8.2)
[2016-10-04 18:13] VITALS: BP 175/84; PULSE 79; TEMP 98
== END 2016-10-04 18:14 | disposition home or self-care (01) ==
LOC: EC 14:34
DX: G40.409 Other generalized epilepsy and epileptic syndromes, not intractable, without status epilepticus (principal); I12.0 Hypertensive chronic kidney disease with stage 5 chronic kidney disease or end stage renal disease; N18.6 End stage renal disease; E11.22 Type 2 diabetes mellitus with diabetic chronic kidney disease; E66.9 Obesity, unspecified; E03.9 Hypothyroidism, unspecified; H54.8 Legal blindness, as defined in USA; Z86.73 Personal history of transient ischemic attack (TIA), and cerebral infarction without residual deficits; Z99.2 Dependence on renal dialysis; Z79.899 Other long term (current) drug therapy
CPT/HCPCS: 36415; 80053; 80164; 80183; 85025; 93005; 99285

== ENCOUNTER 2016-10-18 13:45 | Emergency (ER) | payer MEDICARE, OTHER ==
--- NOTE | 2016-10-18 14:02 | ED ---
General Adult HPI - General Stated complaint: Seizure Time Seen by Provider: 10/18/16 13:47 Source: RN notes reviewed, old records reviewed - History of Present Illness Initial comments: This is a 40-year-old female to the ER for evaluation. Patient presenting for evaluation of seizure. Patient was at dialysis today, has history of end-stage renal disease on dialysis with history of seizures and seizure medications taking seizure medications as prescribed as is described. At this time patient is awake and alert denies complaints that she's been taking her medications appropriately. Denies drugs or alcohol. Again patient denies any complaints, no recent nausea vomiting or diarrhea - Related Data Home Medications Medication Instructions Recorded Confirmed Atorvastatin [Lipitor] 40 mg PO HS 09/03/16 10/04/16 Levothyroxine Sodium [Synthroid] 25 mcg PO DAILY 09/03/16 10/04/16 NIFEdipine [NIFEdipine ER] 90 mg PO DAILY 09/03/16 10/04/16 OXcarbazepine [Trileptal] 150 mg PO DAILY 09/03/16 10/04/16 Sevelamer [Renvela] 800 mg PO TID 09/03/16 10/04/16 Valproic Acid 250 mg PO Q8HR 09/03/16 10/04/16 Previous Rx's Medication Instructions Recorded Folic Acid 1 mg PO DAILY #30 tab 09/05/16 Pantoprazole [Protonix] 40 mg PO AC-BRKFST #30 tab 09/05/16 Allergies Allergy/AdvReac Type Severity Reaction Status Date / Time No Known Allergies Allergy Verified 10/04/16 15:19 Review of Systems ROS Statement: Those systems with pertinent positive or pertinent negative responses have been documented in the HPI. ROS Other: All systems not noted in ROS Statement are negative. Past Medical History Past Medical History: CVA/TIA, Diabetes Mellitus, Dialysis, Hypertension, Renal Disease, Seizure Disorder, Thyroid Disorder Additional Past Medical History / Comment(s): Obesity, diabetes mellitus, end- stage renal disease currently on hemodialysis for the past 3 years, CVA, seizure disorder, hypothyroidism, previous history of ventilator dependent respiratory failure requiring a tracheostomy tube insertion for weaning, cataracts, patient is legally blind with possible diabetic retinopathy, hx of head trauma and concussion, hypertension History of Any Multi-Drug Resistant Organisms: None Reported Past Surgical History: Section, Tubal Ligation Additional Past Surgical History / Comment(s): right arm shunt(ACTIVE), ( LT ARM SHUNT CLOGGED NON FUNCTIONING). toes amputated ON LT FOOT. PARTIAL left foot AMP, LT CATARACT REMOVED HAS LENS IMPLANT Past Anesthesia/Blood Transfusion Reactions: No Reported Reaction Past Psychological History: No Psychological Hx Reported Smoking Status: Never smoker Past Alcohol Use History: None Reported Past Drug Use History: None Reported - Past Family History Mother Family Medical History: CVA/TIA, Myocardial Infarction ([place]), Renal Disease Father Family Medical History: Congestive Heart Failure (CHF), CVA/TIA, Diabetes Mellitus, Hypertension, Vascular Disorder Additional Family Medical History / Comment(s): bka General Exam General appearance: alert, in no apparent distress Head exam: Present: atraumatic, normocephalic, normal inspection Eye exam: Present: normal appearance, PERRL, EOMI. Absent: scleral icterus, conjunctival injection, periorbital swelling ENT exam: Present: normal exam, mucous membranes moist Neck exam: Present: normal inspection. Absent: tenderness, meningismus, lymphadenopathy Respiratory exam: Present: normal lung sounds bilaterally. Absent: respiratory distress, wheezes, rales, rhonchi, stridor Cardiovascular Exam: Present: regular rate, normal rhythm, normal heart sounds. Absent: systolic murmur, diastolic murmur, rubs, gallop, clicks GI/Abdominal exam: Present: soft, normal bowel sounds. Absent: distended, tenderness, guarding, rebound, rigid Extremities exam: Present: normal inspection, full ROM, normal capillary refill. Absent: tenderness, pedal edema, joint swelling, calf tenderness Back exam: Present: normal inspection Neurological exam: Present: alert, oriented X3, CN II-XII intact Psychiatric exam: Present: normal affect, normal mood Skin exam: Present: warm, dry, intact, normal color. Absent: rash Course - Reevaluation(s) Reevaluation #1: 10/18/16 14:13 Patient remains without seizure Medical Decision Making - Medical Decision Making 40 female from dialysis with recurrent seizures. Patient has no complaints at this time, seizures or resolved and patient will be discharged home Disposition Clinical Impression: ESRD (end stage renal disease), Generalized seizure Disposition: HOME SELF-CARE Condition: Good Instructions: Recurrent Seizures in Adults (ED) Referrals: Andrew Chavez MD [Primary Care Provider] - 1-2 days
[2016-10-18 17:51] VITALS: BP 112/78; PULSE 85; RESP 16; TEMP 98.9
== END 2016-10-18 16:50 | disposition home or self-care (01) ==
LOC: EC 13:45
DX: G40.909 Epilepsy, unspecified, not intractable, without status epilepticus (principal); I12.0 Hypertensive chronic kidney disease with stage 5 chronic kidney disease or end stage renal disease; N18.6 End stage renal disease; E07.9 Disorder of thyroid, unspecified; E66.9 Obesity, unspecified; Z68.30 Body mass index [BMI] 30.0-30.9, adult; Z86.73 Personal history of transient ischemic attack (TIA), and cerebral infarction without residual deficits; Z99.2 Dependence on renal dialysis; Z79.899 Other long term (current) drug therapy
CPT/HCPCS: 99284

== ENCOUNTER 2017-05-07 13:52 | Emergency (ER) | payer MEDICARE, OTHER ==
--- NOTE | 2017-05-07 14:15 | ED ---
General Adult HPI - General Chief complaint: Seizure Stated complaint: Seizure Time Seen by Provider: 05/07/17 14:00 Source: patient, EMS Mode of arrival: EMS Limitations: no limitations - History of Present Illness Initial comments: Katia Lucas is a 41 yo female with PMH of ESRD on Dialysis T/ as well as seizure disorder for which she is on Trileptal and Valproic Acid. Patient presents to the ED today via EMS from her dialysis center for evaluation of possible seizure. Reports that she has been compliant with her medications, she states that her sister manages her medications and needs them out for her everyday and she takes them. She does not believe she has missed any doses of her medications. Patient reports that today during dialysis she began to feel that her legs were shaking and alerted the staff that she believes she was going to have a seizure. She states that her legs were shaking for approximately 3 minutes so EMS was called for transport to the hospital. Patient recalls the entire event, she had no postictal state. She states did not lose consciousness, she did not lose continence of bowel or bladder, there is no tongue biting. Patient reports that every 6 weeks or so she has a small seizure like this, she states that she can usually recall the seizures. Patient reports that she does have tonic-clonic seizures if she is not compliant with her medications, however that did not occur today. Patient denies any recent illness. She denies any nausea, vomiting or diarrhea. She reports that she is otherwise feeling well. She reports that she completed approximately half of her scheduled dialysis time prior to her seizure. She reports that she has been compliant with her dialysis recently. Patient denies any complaints upon arrival to the emergency department. - Related Data Home Medications Medication Instructions Recorded Confirmed Atorvastatin [Lipitor] 40 mg PO HS 09/03/16 05/07/17 NIFEdipine [NIFEdipine ER] 90 mg PO DAILY 09/03/16 05/07/17 Valproic Acid 500 mg PO Q12H 09/03/16 05/07/17 Albuterol Inhaler [Ventolin Hfa 1 - 2 puff INHALATION RT-QID PRN 05/07/17 Inhaler] Dialyvite 800-Zinc 15 Tab 1 tab PO AC-SUPPER 05/07/17 05/07/17 Metoprolol Succinate (ER) [Toprol 25 mg PO DAILY 05/07/17 05/07/17 Xl] carBAMazepine [TEGretol] 200 mg PO QAM 05/07/17 05/07/17 Previous Rx's Medication Instructions Recorded Pantoprazole [Protonix] 40 mg PO AC-BRKFST #30 tab 09/05/16 Allergies Allergy/AdvReac Type Severity Reaction Status Date / Time No Known Allergies Allergy Verified 05/07/17 14:28 Review of Systems ROS Statement: Those systems with pertinent positive or pertinent negative responses have been documented in the HPI. ROS Other: All systems not noted in ROS Statement are negative. Constitutional: Denies: fever, chills ENT: Denies: throat pain Respiratory: Denies: cough, dyspnea Cardiovascular: Denies: chest pain, palpitations Endocrine: Denies: fatigue Gastrointestinal: Denies: abdominal pain, nausea, vomiting Genitourinary: Denies: urgency, dysuria, frequency Musculoskeletal: Denies: back pain Skin: Denies: rash, lesions Neurological: Reports: other (shaking of legs, possible seizure activity) Psychiatric: Denies: anxiety, depression Hematological/Lymphatic: Reports: easy bleeding Past Medical History Past Medical History: CVA/TIA, Diabetes Mellitus, Dialysis, Hypertension, Renal Disease, Seizure Disorder, Thyroid Disorder Additional Past Medical History / Comment(s): Obesity, diabetes mellitus, end- stage renal disease currently on hemodialysis for the past 3 years, CVA, seizure disorder, hypothyroidism, previous history of ventilator dependent respiratory failure requiring a tracheostomy tube insertion for weaning, cataracts, patient is legally blind with possible diabetic retinopathy, hx of head trauma and concussion, hypertension History of Any Multi-Drug Resistant Organisms: None Reported Past Surgical History: Section, Tubal Ligation Additional Past Surgical History / Comment(s): right arm shunt(ACTIVE), ( LT ARM SHUNT CLOGGED NON FUNCTIONING). toes amputated ON LT FOOT. PARTIAL left foot AMP, LT CATARACT REMOVED HAS LENS IMPLANT Past Anesthesia/Blood Transfusion Reactions: No Reported Reaction Past Psychological History: No Psychological Hx Reported Smoking Status: Never smoker Past Alcohol Use History: None Reported Past Drug Use History: None Reported - Past Family History Mother Family Medical History: CVA/TIA, Myocardial Infarction ([place]), Renal Disease Father Family Medical History: Congestive Heart Failure (CHF), CVA/TIA, Diabetes Mellitus, Hypertension, Vascular Disorder Additional Family Medical History / Comment(s): bka General Exam Limitations: no limitations General appearance: alert, in no apparent distress Head exam: Present: atraumatic, normocephalic Eye exam: Present: normal appearance, PERRL, EOMI ENT exam: Present: normal exam Neck exam: Present: normal inspection Respiratory exam: Present: normal lung sounds bilaterally. Absent: respiratory distress Cardiovascular Exam: Present: regular rate, normal rhythm GI/Abdominal exam: Present: soft. Absent: distended Extremities exam: Present: other (DIalysis access needles in place ) Neurological exam: Present: alert, oriented X3 Psychiatric exam: Present: normal affect, normal mood Skin exam: Present: warm, dry Course Vital Signs 05/07/17 05/07/17 05/07/17 14:01 14:40 15:00 Temperature 98.2 F 98.2 F Pulse Rate 77 79 72 Respiratory 18 18 16 Rate Blood Pressure 203/93 200/108 196/91 O2 Sat by Pulse 100 99 99 Oximetry - Reevaluation(s) Reevaluation #1: dialysis nurse at bedside to remove the dialysis access. 05/07/17 17:04 Medical Decision Making - Medical Decision Making Patient was seen and evaluated, history obtained from patient, EMS, medical record Vital signs reviewed - HTN Labs ordered labs consistent with patient's history of chronic kidney disease, there is no hyperkalemia and a lactic acidosis Valproic acid level is noted to be low, patient is insistent that she has been compliant with her medications, sister is now bedside and confirms the patient' s history. A single dose of valproic acid was ordered here in the ER and the cisterna patient were advised that they need to follow up with a neurologist to discuss dosing. Patient remained asymptomatic throughout her emergency department stay. Decision was made that the patient could be discharged home. Dialysis nursing was contacted to remove the dialysis access. Patient is discharged was somewhat delayed due to awaiting dialysis nurse, patient remained seizure-free in a symptomatically for her stay in the emergency department. All questions pertaining to care were answered to the best of my ability and the patient was discharged home in her sister's care patient plans to continue her home regimen of antiepileptic medications, continue her scheduled dialysis and follow up with her neurologist output. - Lab Data Result diagrams: 05/07/17 14:35 05/07/17 14:35 Lab Results 05/07/17 05/07/17 05/07/17 Range/Units 14:35 14:35 14:35 WBC 6.0 (3.8-10.6) k/uL RBC 3.24 L (3.80-5.40) m/uL Hgb 10.1 L (11.4-16.0) gm/dL Hct 30.1 L (34.0-46.0) % MCV 92.9 (80.0-100.0) fL MCH 31.2 (25.0-35.0) pg MCHC 33.6 (31.0-37.0) g/dL RDW 14.0 (11.5-15.5) % Plt Count 237 (150-450) k/uL Neutrophils % 70 % Lymphocytes % 23 % Monocytes % 5 % Eosinophils % 1 % Basophils % 0 % Neutrophils # 4.2 (1.3-7.7) k/uL Lymphocytes # 1.4 (1.0-4.8) k/uL Monocytes # 0.3 (0-1.0) k/uL Eosinophils # 0.1 (0-0.7) k/uL Basophils # 0.0 (0-0.2) k/uL Sodium 136 L (137-145) mmol/L Potassium 3.8 (3.5-5.1) mmol/L Chloride 94 L (98-107) mmol/L Carbon Dioxide 31 H (22-30) mmol/L Anion Gap 11 mmol/L BUN 24 H (7-17) mg/dL Creatinine 5.50 H* (0.52-1.04) mg/dL Est GFR (MDRD) Af Amer 10 (>60 ml/min/1.73 sqM) Est GFR (MDRD) Non-Af 8 (>60 ml/min/1.73 sqM) Glucose 113 H (74-99) mg/dL Plasma Lactic Acid Chong 0.9 (0.7-2.0) mmol/L Calcium 9.2 (8.4-10.2) mg/dL Magnesium 1.9 (1.6-2.3) mg/dL Urine Color Urine Appearance (Clear) Urine pH (5.0-8.0) Ur Specific Mark (1.001-1.035) Urine Protein (Negative) Urine Glucose (UA) (Negative) Urine Ketones (Negative) Urine Blood (Negative) Urine Nitrite (Negative) Urine Bilirubin (Negative) Urine Urobilinogen (<2.0) mg/dL Ur Leukocyte Esterase (Negative) Urine RBC (0-5) /hpf Urine WBC (0-5) /hpf Ur Squamous Epith Cells (0-4) /hpf Amorphous Sediment (None) /hpf Urine Bacteria (None) /hpf Urine Opiates Screen (NotDetected) Ur Oxycodone Screen (NotDetected) Urine Methadone Screen (NotDetected) Ur Propoxyphene Screen (NotDetected) Ur Barbiturates Screen (NotDetected) Valproic Acid ug/mL U Tricyclic Antidepress (NotDetected) Ur Phencyclidine Scrn (NotDetected) Ur Amphetamines Screen (NotDetected) U Methamphetamines Scrn (NotDetected) U Benzodiazepines Scrn (NotDetected) Urine Cocaine Screen (NotDetected) U Marijuana (THC) Screen (NotDetected) 05/07/17 05/07/17 05/07/17 Range/Units 14:35 14:35 14:35 WBC (3.8-10.6) k/uL RBC (3.80-5.40) m/uL Hgb (11.4-16.0) gm/dL Hct (34.0-46.0) % MCV (80.0-100.0) fL MCH (25.0-35.0) pg MCHC (31.0-37.0) g/dL RDW (11.5-15.5) % Plt Count (150-450) k/uL Neutrophils % % Lymphocytes % % Monocytes % % Eosinophils % % Basophils % % Neutrophils # (1.3-7.7) k/uL Lymphocytes # (1.0-4.8) k/uL Monocytes # (0-1.0) k/uL Eosinophils # (0-0.7) k/uL Basophils # (0-0.2) k/uL Sodium (137-145) mmol/L Potassium (3.5-5.1) mmol/L Chloride (98-107) mmol/L Carbon Dioxide (22-30) mmol/L Anion Gap mmol/L BUN (7-17) mg/dL Creatinine (0.52-1.04) mg/dL Est GFR (MDRD) Af Amer (>60 ml/min/1.73 sqM) Est GFR (MDRD) Non-Af (>60 ml/min/1.73 sqM) Glucose (74-99) mg/dL Plasma Lactic Acid Chong (0.7-2.0) mmol/L Calcium (8.4-10.2) mg/dL Magnesium (1.6-2.3) mg/dL Urine Color Light Yellow Urine Appearance Cloudy H (Clear) Urine pH 8.5 H (5.0-8.0) Ur Specific Mark 1.005 (1.001-1.035) Urine Protein 2+ H (Negative) Urine Glucose (UA) 1+ H (Negative) Urine Ketones Negative (Negative) Urine Blood Negative (Negative) Urine Nitrite Negative (Negative) Urine Bilirubin Negative (Negative) Urine Urobilinogen <2.0 (<2.0) mg/dL Ur Leukocyte Esterase Large H (Negative) Urine RBC 4 (0-5) /hpf Urine WBC 36 H (0-5) /hpf Ur Squamous Epith Cells 6 H (0-4) /hpf Amorphous Sediment Rare H (None) /hpf Urine Bacteria Occasional H (None) /hpf Urine Opiates Screen Not Detected (NotDetected) Ur Oxycodone Screen Not Detected (NotDetected) Urine Methadone Screen Not Detected (NotDetected) Ur Propoxyphene Screen Not Detected (NotDetected) Ur Barbiturates Screen Not Detected (NotDetected) Valproic Acid 25.4 ug/mL U Tricyclic Antidepress Not Detected (NotDetected) Ur Phencyclidine Scrn Not Detected (NotDetected) Ur Amphetamines Screen Not Detected (NotDetected) U Methamphetamines Scrn Not Detected (NotDetected) U Benzodiazepines Scrn Not Detected (NotDetected) Urine Cocaine Screen Not Detected (NotDetected) U Marijuana (THC) Screen Not Detected (NotDetected) Disposition Clinical Impression: Focal seizure Disposition: HOME SELF-CARE Condition: Good Instructions: Recurrent Seizures in Adults (ED) Referrals: Andrew Chavez MD [Primary Care Provider] - 1-2 days Time of Disposition: 17:01
[2017-05-07 14:55] LABS: Amorphous Sediment,Urine Rare /hpf; Appearance,Urine Cloudy (Clear); Bacteria,Urine Occasional /hpf; Bilirubin,Urine Negative (Negative); Blood,Urine Negative (Negative); Color,Urine Light Yellow; Glucose,Urine (UA) 1+ (Negative); Ketones,Urine Negative (Negative); Leukocyte Esterase,Urine Large (Negative); Nitrite,Urine Negative (Negative); PH, Urine 8.5 (5.0-8.0); Protein,Urine 2+ (Negative); RBC,Urine 4 /hpf (0-5); Specific Gravity,Urine 1.005 (1.001-1.035); Squamous Epithelial Cell,Urine 6 /hpf (0-4); Urobilinogen,Urine <2.0 mg/dL (<2.0); WBC,Urine 36 /hpf (0-5)
[2017-05-07 15:07] LABS: Basophils % (A) 0 %; Eosinophils # (A) 0.1 k/uL (0-0.7); Eosinophils % (A) 1 %; HCT 30.1 % (34.0-46.0); HGB 10.1 gm/dL (11.4-16.0); Lymphocytes # (A) 1.4 k/uL (1.0-4.8); Lymphocytes % (A) 23 %; MCH 31.2 pg (25.0-35.0); MCHC 33.6 g/dL (31.0-37.0); MCV 92.9 fL (80.0-100.0); Mean Platelet Volume 6.7; Monocytes # (A) 0.3 k/uL (0-1.0); Monocytes % (A) 5 %; Neutrophils # (A) 4.2 k/uL (1.3-7.7); Neutrophils % (A) 70 %; Platelet Count 237 k/uL (150-450); RBC 3.24 m/uL (3.80-5.40)
[2017-05-07 15:10] LABS: Calcium 9.2 mg/dL (8.4-10.2); Magnesium 1.9 mg/dL (1.6-2.3); Potassium 3.8 mmol/L (3.5-5.1)
[2017-05-07 15:14] LABS: Amphetamine Screen,Urine Not Detected (NotDetected); Barbiturate Screen,Urine Not Detected (NotDetected); Benzodiazepines Screen,Urine Not Detected (NotDetected); Cocaine Screen,Urine Not Detected (NotDetected); Methadone Screen, Urine Not Detected (NotDetected); Opiate Screen,Urine Not Detected (NotDetected); Oxycodone Screen, Urine Not Detected (NotDetected); Phencyclidine Screen,Urine Not Detected (NotDetected); Tricyclic Antidepressant,Urine Not Detected (NotDetected); Urn Cannabinoid Scrn Not Detected (NotDetected)
[2017-05-07] MEDS ORDERED: cefTRIAXone IN SWFI 1,000 MG/10 ML SYRINGE IVP STA (15:21)
[2017-05-07] MEDS ORDERED: DIVALPROEX 500 MG TABLET.DR PO STA (15:37)
[2017-05-07 15:48] VITALS: PULSE 72; RESP 16
[2017-05-07 17:23] VITALS: BP 180/81; TEMP 97.9
== END 2017-05-07 17:22 | disposition home or self-care (01) ==
LOC: EC 13:52
DX: G40.109 Localization-related (focal) (partial) symptomatic epilepsy and epileptic syndromes with simple partial seizures, not intractable, without status epilepticus (principal); I12.0 Hypertensive chronic kidney disease with stage 5 chronic kidney disease or end stage renal disease; N18.6 End stage renal disease; E66.9 Obesity, unspecified; Z68.30 Body mass index [BMI] 30.0-30.9, adult; Z99.2 Dependence on renal dialysis; Z79.899 Other long term (current) drug therapy
CPT/HCPCS: 36415; 80164; 80048; 83605; 83735; 85025; 81001; 80306; 87086; 99284; 96374; J0696

== ENCOUNTER 2017-05-12 09:17 | Inpatient (IN) | payer MEDICARE, OTHER ==
[2017-05-12] MEDS ORDERED: METOCLOPRAMIDE 5 MG/ML 2 ML VIAL IVP STA (09:29)
[2017-05-12] MEDS ORDERED: SODIUM CHLORIDE 0.9% 500 ML IV STA (09:29)
--- NOTE | 2017-05-12 09:33 | ED ---
General Adult HPI - General Chief complaint: Nausea/Vomiting/Diarrhea Stated complaint: Vomiting/diarrhea Time Seen by Provider: 05/12/17 09:25 Source: patient, RN notes reviewed Mode of arrival: wheelchair Limitations: no limitations - History of Present Illness Initial comments: 41-year-old female presents to the emergency department with a chief complaint of nausea vomiting and diarrhea. Patient states she's been sick since . She says to get dialysis on Tuesdays when states and Saturdays however she hasn't skipped her Saturdays and she has not got her dialysis today either. She states she is just not felt well. Similar symptoms of the nausea vomiting and diarrhea. She's had no fevers she denies any abdominal pain with this. He denies any blood in the vomit or the stool. She states that she was concerned because she continues to be ill and missing dialysis that she thought that she should be seen. Patient states she is not currently having any other symptoms at this time.Patient denies any recent fever, chills, shortness of breath, chest pain, back pain, abdominal pain, numbness or tingling, dysuria or hematuria, constipation, headaches or visual changes, or any other current symptoms. - Related Data Home Medications Medication Instructions Recorded Confirmed Atorvastatin [Lipitor] 40 mg PO HS 09/03/16 05/12/17 NIFEdipine [NIFEdipine ER] 90 mg PO DAILY 09/03/16 05/12/17 Valproic Acid 500 mg PO Q12H 09/03/16 05/12/17 Albuterol Inhaler [Ventolin Hfa 1 - 2 puff INHALATION RT-QID PRN 05/07/17 Inhaler] Dialyvite 800-Zinc 15 Tab 1 tab PO AC-SUPPER 05/07/17 05/12/17 Metoprolol Succinate (ER) [Toprol 25 mg PO DAILY 05/07/17 05/12/17 Xl] carBAMazepine [TEGretol] 200 mg PO QAM 05/07/17 05/12/17 Previous Rx's Medication Instructions Recorded Pantoprazole [Protonix] 40 mg PO AC-BRKFST #30 tab 09/05/16 Allergies Allergy/AdvReac Type Severity Reaction Status Date / Time No Known Allergies Allergy Verified 05/12/17 09:37 Review of Systems ROS Statement: Those systems with pertinent positive or pertinent negative responses have been documented in the HPI. ROS Other: All systems not noted in ROS Statement are negative. Past Medical History Past Medical History: CVA/TIA, Diabetes Mellitus, Dialysis, Hypertension, Renal Disease, Seizure Disorder, Thyroid Disorder Additional Past Medical History / Comment(s): Obesity, diabetes mellitus, end- stage renal disease currently on hemodialysis for the past 3 years, CVA, seizure disorder, hypothyroidism, previous history of ventilator dependent respiratory failure requiring a tracheostomy tube insertion for weaning, cataracts, patient is legally blind with possible diabetic retinopathy, hx of head trauma and concussion, hypertension History of Any Multi-Drug Resistant Organisms: None Reported Past Surgical History: Section, Tubal Ligation Additional Past Surgical History / Comment(s): right arm shunt(ACTIVE), ( LT ARM SHUNT CLOGGED NON FUNCTIONING). toes amputated ON LT FOOT. PARTIAL left foot AMP, LT CATARACT REMOVED HAS LENS IMPLANT Past Anesthesia/Blood Transfusion Reactions: No Reported Reaction Past Psychological History: No Psychological Hx Reported Smoking Status: Never smoker Past Alcohol Use History: None Reported Past Drug Use History: None Reported - Past Family History Mother Family Medical History: CVA/TIA, Myocardial Infarction ([place]), Renal Disease Father Family Medical History: Congestive Heart Failure (CHF), CVA/TIA, Diabetes Mellitus, Hypertension, Vascular Disorder Additional Family Medical History / Comment(s): bka General Exam - General Exam Comments Initial Comments: General: The patient is awake and alert, in no distress, and does not appear acutely ill. Eye: Pupils are equal, round and reactive to light, extra-ocular movements are intact; there is normal conjunctiva bilaterally. No signs of icterus. Ears, nose, mouth and throat: There are moist mucous membranes. Neck: The neck is supple, there is no tenderness. Cardiovascular: There is a regular rate and rhythm. No murmur, rub or gallop is appreciated. Respiratory: Lungs are clear to auscultation, respirations are non-labored, breath sounds are equal. No wheezes, stridor, rales, or rhonchi. Gastrointestinal: Soft, non-distended, non-tender abdomen without masses or organomegaly noted. There is no rebound or guarding present. No CVA tenderness. Bowel sounds are unremarkable. Back: There is no tenderness to palpation in the midline. There is no obvious deformity. No rashes noted. Musculoskeletal: Normal ROM, no tenderness, There is no pedal edema. There is no calf tenderness or swelling. Sensation intact. Pulses equal bilaterally 2+. Neurological: CN II-XII intact, There are no obvious motor or sensory deficits. Coordination appears grossly intact. Speech is normal. Skin: Skin is warm and dry and no rashes or lesions are noted. Psychiatric: Cooperative, appropriate mood & affect, normal judgment. Limitations: no limitations Course Vital Signs 05/12/17 05/12/17 09:18 11:40 Temperature 97.0 F L 96.7 F L Pulse Rate 78 73 Respiratory 18 16 Rate Blood Pressure 235/100 206/93 O2 Sat by Pulse 100 Oximetry EKG Findings - EKG Comments: EKG Findings:: Normal sinus rhythm, peaked T waves throughout. Ventricular rate 76, MI interval 190, T-wave inversion in III and aVF Medical Decision Making - Medical Decision Making 41-year-old female presents emergency department with a chief complaint of nausea vomiting and diarrhea. This and patient's lab work is been reviewed. She does appear to be hyperkalemic. As well as have an elevated BUN/ creatinine. She has skipped to of her dialysis appointments. This time we'll admit the patient for dialysis. Patient is in agreement with this plan. All of her questions have been answered. Patient will be admitted at this time to Dr. cruz. EKGs reviewed that is showing peaked T waves. Appropriate medications have been ordered and we have started the process of getting patient dialysis today. - Lab Data Result diagrams: 05/12/17 10:20 05/12/17 10:20 Lab Results 05/12/17 05/12/17 Range/Units 10:20 10:20 WBC 7.8 (3.8-10.6) k/uL RBC 3.82 (3.80-5.40) m/uL Hgb 11.9 (11.4-16.0) gm/dL Hct 36.5 (34.0-46.0) % MCV 95.7 (80.0-100.0) fL MCH 31.1 (25.0-35.0) pg MCHC 32.5 (31.0-37.0) g/dL RDW 13.9 (11.5-15.5) % Plt Count 195 (150-450) k/uL Neutrophils % 77 % Lymphocytes % 17 % Monocytes % 4 % Eosinophils % 1 % Basophils % 1 % Neutrophils # 6.0 (1.3-7.7) k/uL Lymphocytes # 1.3 (1.0-4.8) k/uL Monocytes # 0.3 (0-1.0) k/uL Eosinophils # 0.1 (0-0.7) k/uL Basophils # 0.1 (0-0.2) k/uL Sodium 139 (137-145) mmol/L Potassium 6.4 H* (3.5-5.1) mmol/L Chloride 101 (98-107) mmol/L Carbon Dioxide 19 L (22-30) mmol/L Anion Gap 19 mmol/L BUN 83 H* (7-17) mg/dL Creatinine 13.23 H* (0.52-1.04) mg/dL Est GFR (MDRD) Af Amer 4 (>60 ml/min/1.73 sqM) Est GFR (MDRD) Non-Af 3 (>60 ml/min/1.73 sqM) Glucose 119 H (74-99) mg/dL Calcium 9.8 (8.4-10.2) mg/dL Phosphorus 6.9 H (2.5-4.5) mg/dL Magnesium 2.0 (1.6-2.3) mg/dL Total Bilirubin 0.4 (0.2-1.3) mg/dL AST 12 L (14-36) U/L ALT 16 (9-52) U/L Alkaline Phosphatase 82 (38-126) U/L Total Protein 7.2 (6.3-8.2) g/dL Albumin 4.4 (3.5-5.0) g/dL Amylase 78 (30-110) U/L Lipase 241 (23-300) U/L Disposition Clinical Impression: Acute on chronic kidney failure, Hyperkalemia, Nausea & vomiting Disposition: ADMITTED IP TO THIS [facility] Condition: Stable Referrals: Eve Martin MD [Primary Care Provider] - 1-2 days Decision Date: 05/12/17 Decision Time: 11:30
[2017-05-12 11:04] LABS: Albumin 4.4 g/dL (3.5-5.0); Calcium 9.8 mg/dL (8.4-10.2); Phosphorus 6.9 mg/dL (2.5-4.5); Total Bilirubin 0.4 mg/dL (0.2-1.3); Total Protein 7.2 g/dL (6.3-8.2)
[2017-05-12 11:15] LABS: Basophils # (A) 0.1 k/uL (0-0.2); Basophils % (A) 1 %; Eosinophils # (A) 0.1 k/uL (0-0.7); Eosinophils % (A) 1 %; HCT 36.5 % (34.0-46.0); HGB 11.9 gm/dL (11.4-16.0); Lymphocytes # (A) 1.3 k/uL (1.0-4.8); Lymphocytes % (A) 17 %; MCH 31.1 pg (25.0-35.0); MCHC 32.5 g/dL (31.0-37.0); MCV 95.7 fL (80.0-100.0); Mean Platelet Volume 6.9; Monocytes # (A) 0.3 k/uL (0-1.0); Monocytes % (A) 4 %; Neutrophils % (A) 77 %; Platelet Count 195 k/uL (150-450); RBC 3.82 m/uL (3.80-5.40); RDW 13.9 % (11.5-15.5); WBC 7.8 k/uL (3.8-10.6)
[2017-05-12 11:18] LABS: Potassium 6.4 mmol/L (3.5-5.1)
[2017-05-12] MEDS ORDERED: NALOXONE 0.4 MG/ML 1 ML VIAL IV PRN (11:30)
[2017-05-12] MEDS ORDERED: ONDANSETRON 4 MG/2 ML VIAL IVP PRN (11:30)
[2017-05-12] MEDS ORDERED: ALBUTEROL NEBULIZED 2.5 MG/3 ML INHALATION PRN (11:33)
[2017-05-12] MEDS ORDERED: DEXTROSE 50%-WATER 50 ML SYRINGE IVP STA (11:41)
[2017-05-12] MEDS ORDERED: CALCIUM CHLORIDE 100 MG/ML 10 ML SYRINGE IVP STA (11:41)
[2017-05-12] MEDS ORDERED: ALBUTEROL NEBULIZED 2.5 MG/3 ML INHALATION STA (11:41)
[2017-05-12] MEDS ORDERED: INSULIN REGULAR 100 UNIT/ML VIAL IV STA (11:41)
[2017-05-12] MEDS ORDERED: SODIUM BICARB 8.4% 50 ML SYR (1 MEQ/ML) IV ONE (11:45)
[2017-05-12] MEDS ORDERED: LABETALOL 5 MG/ML VIAL MDV IVP STA (11:50)
[2017-05-12 14:39] LABS: Calcium 10.3 mg/dL (8.4-10.2); Potassium 5.6 mmol/L (3.5-5.1)
[2017-05-12] MEDS: SODIUM CHLORIDE 0.9% 1,000 ML IV SCH ×2 (15:20→23:27)
[2017-05-12] MEDS ORDERED: B COMPLEX-VIT C-VIT E-ZINC 1 EACH TAB PO SCH (17:30)
[2017-05-12] MEDS ORDERED: ATORVASTATIN 40 MG TAB PO SCH (21:00)
[2017-05-12 21:05] LABS: Glucose,Whole Blood 89 mg/dL (75-99)
[2017-05-12] MEDS: VALPROIC ACID ORAL SOLN 250 MG/5 ML CUP PO SCH ×2 (21:14→23:27)
--- NOTE | 2017-05-13 00:16 | HP ---
HISTORY AND PHYSICAL DATE OF ADMISSION: 05/12/2017 PRESENTING COMPLAINT: Missed hemodialysis. HISTORY OF PRESENTING COMPLAINT: This is a 41-year-old patient of Dr. Eve Martin whose chronic stable medical conditions include diabetes, hypertension, seizure, hypothyroid, chronic anemia on hemodialysis. The patient in the past was comatose, for 6 months had required a vent, PEG and trach. No residual from that. The patient is blind and patient's sister Lien takes care of her. The patient for 2 days had nausea, vomiting, diarrhea and subsequently as a result of this, she missed 2 hemodialysis, was brought to the ER. Denies any fever, abdominal pain. Diarrhea, settling down. Nausea, vomiting settling down. Patient did tolerate a clear liquid diet. The patient subsequently was hemodialyzed today and feels better. REVIEW OF SYSTEMS: CONSTITUTIONAL: Tired. HEENT: Poor eyesight. RESPIRATORY: None. CARDIOVASCULAR: None. GASTROINTESTINAL: As above. GENITOURINARY: None. MUSCULOSKELETAL: None. DERMATOLOGIC: None. HEMATOLOGIC: None. LYMPHATIC: None. PSYCHIATRY: None. NEUROLOGICAL: Not able to see. PAST MEDICAL HISTORY: Diabetes mellitus type 2, end-stage kidney disease on hemodialysis, hypertension, seizure disorder, hypothyroid. The patient had a stroke, was comatose for 6 months, had a vent, PEG, now no residual. Seizure disorder, last seizure was May 07. Patient is also legally blind from diabetic retinopathy and hemorrhage. PAST SURGICAL HISTORY: , tubal ligation, right arm shunt, left arm shunt that is closed and nonfunctioning, toes amputated on the left foot, partial left foot amputated, left cataract removed. SOCIAL HISTORY: Patient lives with sister, Lien, who is also legal guardian. The patient uses a walker. No smoking. No alcohol. FAMILY HISTORY: Stroke, myocardial infarction, renal disease. HOME MEDICATIONS: 1. Tegretol 200 mg p.o. daily. 2. Protonix 40 mg with breakfast. 3. Nifedipine ER 90 mg p.o. daily. 4. 1 tablet p.o. a.c. supper. 5. Ventolin HFA 1 or 2 puffs q.i.d. p.r.n. 6. Valproic acid 500 mg p.o. q.12. 7. Toprol-XL 25 mg p.o. daily. 8. Lipitor 40 mg p.o. q.h.s. ALLERGIES: None. EXAMINATION: Temperature 97, pulse 74, respirations 20, blood pressure 167/74, pulse ox 97%. Patient's blood pressure on presentation was 235/100. GENERAL APPEARANCE: Lying in bed, tired-appearing. EYES: Pupils equal. Conjunctivae normal. HEENT: Oral cavity normal. NECK: JVD not raised. Mass not palpable. RESPIRATORY: Effort normal. Lungs are clear. CARDIOVASCULAR: First and second sounds normal. No edema. ABDOMEN: Soft, nontender. Liver and spleen not palpable. LYMPHATIC: No lymph node palpable in neck or axillae. PSYCHIATRY: Alert and oriented x3. Mood and affect normal. NEUROLOGICAL: The patient's vision is blurry, can recognize my outline. Moving all 4 limbs. INVESTIGATIONS: White count 7.8, hemoglobin 11.9. Potassium was 6.4, repeat 5.6, BUN 83, creatinine 13.23. Phosphorus 6.9. ASSESSMENT: 1. Acute nausea, vomiting probably secondary to gastroenteritis, could be viral encephalopathy. 2. Acute uremic symptoms from missed hemodialysis. Feeling better after hemodialysis, having missed the same. 3. Hyperkalemia from end-stage kidney disease. 4. Secondary hyperparathyroidism. 5. Chronic seizure disorder. The patient is on antiseizure medications. 6. Hypertensive urgency, present on admission from missed hemodialysis. 7. Hyperlipidemia. PLAN: Patient has done well after hemodialysis. Home medications have resumed. The patient's blood pressure is closely being followed. We will see how the patient does. MMODL / IJN: [id number] /
[2017-05-13 01:19] VITALS: RESP 16
[2017-05-13 04:42] VITALS: TEMP 98.1
[2017-05-13 06:06] LABS: Glucose,Whole Blood 89 mg/dL (75-99)
[2017-05-13 07:09] LABS: Calcium 9.3 mg/dL (8.4-10.2); Potassium 4.9 mmol/L (3.5-5.1); Total Bilirubin 0.3 mg/dL (0.2-1.3); Total Protein 5.5 g/dL (6.3-8.2)
[2017-05-13 07:12] LABS: Basophils % (A) 1 %; Eosinophils # (A) 0.1 k/uL (0-0.7); Eosinophils % (A) 2 %; Lymphocytes # (A) 1.5 k/uL (1.0-4.8); Lymphocytes % (A) 33 %; MCH 31.2 pg (25.0-35.0); MCHC 33.8 g/dL (31.0-37.0); MCV 92.4 fL (80.0-100.0); Mean Platelet Volume 7.6; Monocytes # (A) 0.4 k/uL (0-1.0); Monocytes % (A) 8 %; Neutrophils # (A) 2.6 k/uL (1.3-7.7); Neutrophils % (A) 56 %; Platelet Count 145 k/uL (150-450); RBC 3.03 m/uL (3.80-5.40); RDW 13.9 % (11.5-15.5); WBC 4.7 k/uL (3.8-10.6)
[2017-05-13 07:16] LABS: HGB 9.5 gm/dL (11.4-16.0)
[2017-05-13] MEDS ORDERED: PANTOPRAZOLE 40 MG TABLET PO SCH (07:30)
[2017-05-13] MEDS ORDERED: METOPROLOL SUCCINATE (ER) 25 MG TAB.ER.24H PO SCH (09:00)
[2017-05-13] MEDS ORDERED: ENOXAPARIN 30 MG/0.3 ML SYRINGE SQ SCH (09:00)
[2017-05-13] MEDS ORDERED: carBAMazepine 200 MG TAB PO SCH (09:00)
[2017-05-13] MEDS ORDERED: NIFEdipine XL 90 MG TAB.ER.24 PO SCH (09:00)
[2017-05-13] MEDS ORDERED: cloNIDine HCL 0.1 MG TAB PO STA (09:16)
[2017-05-13 11:40] LABS: Glucose,Whole Blood 99 mg/dL (75-99)
[2017-05-13 11:44] VITALS: BP 152/82; PULSE 72
--- NOTE | 2017-05-13 14:29 | CONS ---
CONSULTATION DATE OF SERVICE: 05/13/2017. REASON FOR CONSULTATION: Endstage renal disease. HISTORY OF PRESENT ILLNESS: The patient is a 41-year-old white female with history of end-stage renal disease, on hemodialysis on a Thursday, , Thursday schedule. Patient was admitted to the hospital after she missed her dialysis on Thursday. She was also complaining of nausea, vomiting and she had some diarrhea as well. Patient denied any fevers. She was also mildly short of breath. Her potassium was at 6.4 mEq/L yesterday. Patient was dialyzed yesterday and she will be dialyzed again today. She states she is feeling much better and will actually be going home today. PAST MEDICAL HISTORY: End-stage renal disease, seizure disorder, CKD, mineral bone disorder, anemia of chronic disease, hypertension, dyslipidemia. PAST SURGICAL HISTORY: , tubal ligation, AV fistula right arm, amputation on left toes, partial left foot amputation, cataract surgery. SOCIAL HISTORY: Negative for smoking, drug abuse or alcohol abuse. ALLERGIES: None. MEDICATIONS: At home prior to admission include Lipitor, Nifedipine, valproic acid, Dialyvite, Toprol, Tegretol, Protonix. REVIEW OF SYSTEMS: As per HPI. Other systems negative. PHYSICAL EXAMINATION: Patient is currently comfortable, awake, alert, oriented x3, not in any acute distress. Blood pressure was 215/88 this morning. Heart rate 79 per minute. She is afebrile. Examination of the heart, S1, S2. Examination of the lungs, bilateral breath sounds are heard. Abdomen is soft, nontender. Examination of the lower extremities shows no significant edema. Skin exam is grossly intact. Patient moving all 4 extremities. Skin exam is normal. LABS: Show sodium 140, potassium 4.9, chloride 107, CO2 of 21, BUN 45, serum creatinine 7.8, hemoglobin 9.5 g/dL. ASSESSMENT: 1. End-stage renal disease, on hemodialysis on a Thursday, , Thursday schedule, status post dialysis yesterday. Patient is being dialyzed again today. She can be discharged from a nephrology standpoint and just follow up as outpatient for her regular treatment tomorrow. 2. Hyperkalemia secondary to not having had dialysis, currently improved. 3. Volume overload, also improved post dialysis. 4. Hypercalcemia noted on labs yesterday, currently improved. 5. Chronic kidney disease mineral bone disorder with hyperphosphatemia. Patient should continue her home phosphate binders. I do not see any on her current med list. 6. Hypertension, currently uncontrolled. Will give her a dose of clonidine if blood pressure does not improve. Patient will be dialyzed. I will also discontinue her IV fluids and with the ultrafiltration, her blood pressure should decrease. 7. Seizure disorder, currently stable. PLAN: DC IV fluids, hemodialysis today and patient can be discharged post dialysis. She should continue her home phosphate binders post discharge. She will come for her regular outpatient treatment tomorrow. Thank you for this consultation. MMODL / IJN: [id number] /
[2017-05-13] MEDS: SODIUM CHLORIDE 0.9% 1,000 ML IV SCH (15:41)
--- NOTE | 2017-05-13 23:02 | DS ---
DISCHARGE SUMMARY DATE OF ADMISSION: 05/12/2017. DATE OF DISCHARGE: 05/13/2017 FINAL DIAGNOSES: 1. Acute gastroenteritis, possibly viral. 2. Acute uremic symptoms from missed hemodialysis. 3. Hyperkalemia from end-stage kidney disease. 4. Secondary hyperparathyroidism. 5. Chronic seizure disorder. 6. Hypertensive urgency, present on admission from missed hemodialysis. 7. Hyperlipidemia. 8. End-stage kidney disease on hemodialysis. HOSPITAL COURSE: This patient got what appears to be a viral gastroenteritis, leading to missing her hemodialysis, resulting in uremic symptoms and blood pressure that was up to over 200 systolic, for which patient was admitted. The patient did get hemodialysis, is doing much better, tolerating a diet EXAMINATION: Lungs are clear. CARDIOVASCULAR: First and second sounds normal. The patient was seen by Dr. Dial from nephrology. DISCHARGE MEDICATIONS: 1. Lipitor 40 mg q.h.s. 2. Nifedipine ER 90 mg daily. 3. Valproic acid 500 mg p.o. q.12. 4. Protonix 40 mg with breakfast. 5. Ventolin HFA 1 or 2 puffs q.i.d. p.r.n. 6. Dialyvite 1 tablet a day before supper. 7. Toprol-XL 25 mg p.o. daily. 8. Tegretol 200 mg p.o. daily. Follow up with Dr. Eve Martin in 3 days. Patient to maintain hemodialysis schedule. MMODL / IJN: [id number] /
== END 2017-05-13 16:11 | disposition home or self-care (01) | DRG 683 ==
LOC: EC 09:17 → 6SEL 11:28
PROVIDERS: ADMIT Hospitalist; ATTEND Hospitalist
PROC: 5A1D70Z Performance of Urinary Filtration, Intermittent, Less than 6 Hours Per Day (ICD-10-PCS; principal; 2017-05-12)
DX: N17.9 Acute kidney failure, unspecified (principal); I12.0 Hypertensive chronic kidney disease with stage 5 chronic kidney disease or end stage renal disease; E11.22 Type 2 diabetes mellitus with diabetic chronic kidney disease; E87.70 Fluid overload, unspecified; E11.319 Type 2 diabetes mellitus with unspecified diabetic retinopathy without macular edema; E83.39 Other disorders of phosphorus metabolism; E83.52 Hypercalcemia; E87.5 Hyperkalemia; D63.1 Anemia in chronic kidney disease; G40.909 Epilepsy, unspecified, not intractable, without status epilepticus; H54.8 Legal blindness, as defined in USA; I16.0 Hypertensive urgency; K52.9 Noninfective gastroenteritis and colitis, unspecified; M89.9 Disorder of bone, unspecified; N18.6 End stage renal disease; N25.81 Secondary hyperparathyroidism of renal origin; E03.9 Hypothyroidism, unspecified; E78.5 Hyperlipidemia, unspecified; E66.9 Obesity, unspecified; Z79.899 Other long term (current) drug therapy; Z99.2 Dependence on renal dialysis; Z91.15 Patient's noncompliance with renal dialysis; Z86.73 Personal history of transient ischemic attack (TIA), and cerebral infarction without residual deficits; Z82.49 Family history of ischemic heart disease and other diseases of the circulatory system; Z89.422 Acquired absence of other left toe(s)
CPT/HCPCS: 36415; 80048; 80053; 82150; 83690; 83735; 84100; 85025; 90935; 93005; 96361; 96374; 96375; 99285

== ENCOUNTER 2017-06-09 14:44 | Inpatient (IN) | payer MEDICARE, OTHER ==
[2017-06-09 14:59] LABS: Glucose,Whole Blood 128 mg/dL (75-99)
--- NOTE | 2017-06-09 15:15 | ED ---
General Adult HPI - General Chief complaint: Seizure Stated complaint: Seizure Time Seen by Provider: 06/09/17 14:52 Source: patient, EMS Mode of arrival: EMS Limitations: no limitations - History of Present Illness Initial comments: 41-year-old female with a history of seizure disorder presents to the emergency department for two seizures one hour ago. Patient was at dialysis when she had the seizure and did not fall or hit her head. She is not sure what type of seizure she had, but does have a history of grand mal seizures. According to EMS , patient had a seizure about an hour ago at dialysis that was 4 minutes long. Patient had another seizure that was 2 minutes long. EMS stated to the nurse that the patient was not post ictal. The last seizure she had was on 10/2017. Patient also has a history of diet controlled DMII and renal failure for which she is on dialysis. She also has a history of a CVA/TIA and is legally blind. She currently lives with her sister. She does have a history of grand mal seizures. Patient is currently on Tegretol and phenytoin for seizures. She states she is taking her medications regularly. She has no complaints at this time. - Related Data Home Medications Medication Instructions Recorded Confirmed Atorvastatin [Lipitor] 40 mg PO HS 09/03/16 06/09/17 NIFEdipine [NIFEdipine ER] 90 mg PO DAILY 09/03/16 06/09/17 Valproic Acid 500 mg PO Q12H 09/03/16 06/09/17 Albuterol Inhaler [Ventolin Hfa 1 - 2 puff INHALATION RT-QID PRN 05/07/17 Inhaler] Metoprolol Succinate (ER) [Toprol 25 mg PO DAILY 05/07/17 06/09/17 XL] carBAMazepine [TEGretol] 200 mg PO QAM 05/07/17 06/09/17 Divalproex [Depakote] 250 mg PO DAILY 06/09/17 06/09/17 Previous Rx's Medication Instructions Recorded Pantoprazole [Protonix] 40 mg PO AC-BRKFST #30 tab 09/05/16 Allergies Allergy/AdvReac Type Severity Reaction Status Date / Time No Known Allergies Allergy Verified 06/09/17 15:15 Review of Systems ROS Statement: Those systems with pertinent positive or pertinent negative responses have been documented in the HPI. ROS Other: All systems not noted in ROS Statement are negative. Past Medical History Past Medical History: CVA/TIA, Diabetes Mellitus, Dialysis, Hypertension, Renal Disease, Seizure Disorder, Thyroid Disorder Additional Past Medical History / Comment(s): Sister, Lien, who is caregiver states pt has a callous on R great toe that she was going to show to pt's doctor tomorrow, diabetes mellitus type II-diet controlled, end-stage renal disease currently on hemodialysis for the past 3 years, normocytic anemia, CVA was comatose for 6 months/vented/peg tube-no residual, TIA, seizure disorder with last seizure 05/07/17, hypothyroidism but pt states now controlled, patient is legally blind with diabetic retinopathy and retinal hemorrhage-can see shadows with L eye, hx of head trauma and concussion, History of Any Multi-Drug Resistant Organisms: None Reported Past Surgical History: Section, Tubal Ligation Additional Past Surgical History / Comment(s): right arm shunt(ACTIVE), ( LT ARM SHUNT CLOGGED NON FUNCTIONING). toes amputated ON LT FOOT. PARTIAL left foot AMP, LT CATARACT REMOVED HAS LENS IMPLANT Past Anesthesia/Blood Transfusion Reactions: No Reported Reaction Past Psychological History: No Psychological Hx Reported Smoking Status: Never smoker Past Alcohol Use History: None Reported Past Drug Use History: None Reported - Past Family History Mother Family Medical History: CVA/TIA, Myocardial Infarction (IA), Renal Disease Father Family Medical History: Congestive Heart Failure (CHF), CVA/TIA, Diabetes Mellitus, Hypertension, Vascular Disorder Additional Family Medical History / Comment(s): bka General Exam Limitations: no limitations Head exam: Present: atraumatic, normocephalic, normal inspection Eye exam: Present: PERRL. Absent: EOMI (Patient is legally blind), scleral icterus, conjunctival injection ENT exam: Present: normal exam, mucous membranes moist Neck exam: Present: normal inspection. Absent: tenderness, meningismus, lymphadenopathy Respiratory exam: Present: normal lung sounds bilaterally. Absent: respiratory distress, wheezes, rales, rhonchi, stridor Cardiovascular Exam: Present: regular rate, normal rhythm, normal heart sounds. Absent: systolic murmur, diastolic murmur, rubs, gallop, clicks GI/Abdominal exam: Present: soft, normal bowel sounds. Absent: distended, tenderness, guarding, rebound, rigid Extremities exam: Present: normal inspection, full ROM, normal capillary refill. Absent: tenderness, pedal edema, joint swelling, calf tenderness Neurological exam: Present: alert, oriented X3, CN II-XII intact Course Vital Signs 06/09/17 15:02 Temperature 97.8 F Pulse Rate 78 Respiratory 18 Rate Blood Pressure 120/63 O2 Sat by Pulse 100 Oximetry EKG Findings - EKG Comments: EKG Findings:: Normal sinus rhythm, ventricular rate 71, QRS duration 118, LVH Medical Decision Making - Medical Decision Making 41-year-old female with a history of seizure disorder presents to the emergency department for seizures. Patient had a seizure at dialysis earlier this afternoon which lasted 4 minutes and another one after that which lasted 2 minutes. Patient did not experience post ictal symptoms. Concentrations of her seizure meds including phenytoin and carbamazepine were found to be less than 3 and subtherapeutic. Patient was slowly dosed with one thousand milligrams of phenytoin. Other labs were checked and patient was mildly anemic but did not exhibit symptoms. Patient is on dialysis so IV fluids were not given in the emergency department. Patient will be admitted for seizure control and to reinstate her medications. She has not had another seizure in the emergency department. - Lab Data Result diagrams: 06/09/17 15:00 06/09/17 15:00 Lab Results 06/09/17 06/09/17 06/09/17 Range/Units 14:57 15:00 15:00 WBC 5.8 (3.8-10.6) k/uL RBC 3.29 L (3.80-5.40) m/uL Hgb 10.3 L (11.4-16.0) gm/dL Hct 30.0 L (34.0-46.0) % MCV 91.1 (80.0-100.0) fL MCH 31.2 (25.0-35.0) pg MCHC 34.2 (31.0-37.0) g/dL RDW 14.1 (11.5-15.5) % Plt Count 214 (150-450) k/uL Neutrophils % 66 % Lymphocytes % 26 % Monocytes % 5 % Eosinophils % 1 % Basophils % 0 % Neutrophils # 3.8 (1.3-7.7) k/uL Lymphocytes # 1.5 (1.0-4.8) k/uL Monocytes # 0.3 (0-1.0) k/uL Eosinophils # 0.1 (0-0.7) k/uL Basophils # 0.0 (0-0.2) k/uL Sodium 137 (137-145) mmol/L Potassium 3.3 L (3.5-5.1) mmol/L Chloride 94 L (98-107) mmol/L Carbon Dioxide 33 H (22-30) mmol/L Anion Gap 10 mmol/L BUN 20 H (7-17) mg/dL Creatinine 3.90 H (0.52-1.04) mg/dL Est GFR (CKD-EPI)AfAm 15 (>60 ml/min/1.73 sqM) Est GFR (CKD-EPI)NonAf 13 (>60 ml/min/1.73 sqM) Glucose 126 H (74-99) mg/dL POC Glucose (mg/dL) 128 H (75-99) mg/dL POC Glu [place] Clerk ID Ramya Denney Calcium 9.1 (8.4-10.2) mg/dL Total Bilirubin 0.3 (0.2-1.3) mg/dL AST 11 L (14-36) U/L ALT 14 (9-52) U/L Alkaline Phosphatase 78 (38-126) U/L Total Protein 6.6 (6.3-8.2) g/dL Albumin 3.8 (3.5-5.0) g/dL Phenytoin <3.0 ug/mL Carbamazepine <3.0 ug/mL Disposition Clinical Impression: Seizure disorder Disposition: ADMITTED IP TO THIS [facility] Condition: Good Referrals: Eve Martin MD [Primary Care Provider] - 1-2 days Decision Time: 17:09
[2017-06-09 15:41] LABS: Basophils % (A) 0 %; Eosinophils # (A) 0.1 k/uL (0-0.7); Eosinophils % (A) 1 %; HGB 10.3 gm/dL (11.4-16.0); Lymphocytes # (A) 1.5 k/uL (1.0-4.8); Lymphocytes % (A) 26 %; MCH 31.2 pg (25.0-35.0); MCHC 34.2 g/dL (31.0-37.0); MCV 91.1 fL (80.0-100.0); Monocytes # (A) 0.3 k/uL (0-1.0); Monocytes % (A) 5 %; Neutrophils # (A) 3.8 k/uL (1.3-7.7); Neutrophils % (A) 66 %; Platelet Count 214 k/uL (150-450); RBC 3.29 m/uL (3.80-5.40); RDW 14.1 % (11.5-15.5); WBC 5.8 k/uL (3.8-10.6)
[2017-06-09 15:55] LABS: ALT 14 U/L (9-52); AST 11 U/L (14-36); Albumin 3.8 g/dL (3.5-5.0); Alkaline Phosphatase 78 U/L (38-126); Anion Gap 10 mmol/L; Blood Urea Nitrogen 20 mg/dL (7-17); Calcium 9.1 mg/dL (8.4-10.2); Carbamazepine (Tegretol) <3.0 ug/mL; Carbon Dioxide 33 mmol/L (22-30); Chloride 94 mmol/L (98-107); Glucose 126 mg/dL (74-99); Phenytoin (Dilantin) <3.0 ug/mL; Potassium 3.3 mmol/L (3.5-5.1); Sodium 137 mmol/L (137-145); Total Bilirubin 0.3 mg/dL (0.2-1.3); Total Protein 6.6 g/dL (6.3-8.2)
[2017-06-09] MEDS ORDERED: PHENYTOIN SODIUM INJ 50 MG/ML 2 ML VIAL IVP STA (16:21)
[2017-06-09] MEDS ORDERED: PHENYTOIN SODIUM INJ 1,000 MG in SODIUM CHLORIDE 0.9% 100 ML IVPB STA (16:22)
[2017-06-09] MEDS ORDERED: NALOXONE 0.4 MG/ML 1 ML VIAL IV PRN (16:46)
[2017-06-09] MEDS ORDERED: ALBUTEROL NEBULIZED 2.5 MG/3 ML INHALATION PRN (16:59)
[2017-06-09] MEDS: SODIUM CHLORIDE 0.9% 1,000 ML IV SCH (19:14)
[2017-06-09 20:53] VITALS: BMI 29.0
[2017-06-09] MEDS: VALPROIC ACID ORAL SOLN 250 MG/5 ML CUP PO SCH (22:31)
[2017-06-09] MEDS: ATORVASTATIN 40 MG TAB PO SCH (22:31)
[2017-06-10 04:17] LABS: Hemoglobin A1C 4.4 % (4.0-6.0)
[2017-06-10] MEDS: METOPROLOL SUCCINATE (ER) 25 MG TAB.ER.24H PO SCH (07:58)
[2017-06-10] MEDS: ACETAMINOPHEN TAB 325 MG TAB PO PRN (07:58)
[2017-06-10] MEDS: DIVALPROEX 250 MG TABLET.DR PO SCH (07:58)
[2017-06-10] MEDS: NIFEdipine XL 90 MG TAB.ER.24 PO SCH (07:58)
[2017-06-10] MEDS: PANTOPRAZOLE 40 MG TABLET PO SCH (07:59)
[2017-06-10] MEDS: VALPROIC ACID ORAL SOLN 250 MG/5 ML CUP PO SCH ×2 (07:59→21:24)
[2017-06-10] MEDS ORDERED: carBAMazepine 200 MG TAB PO SCH (09:00)
[2017-06-10 11:28] LABS: Glucose,Whole Blood 105 mg/dL (75-99)
--- NOTE | 2017-06-10 15:56 | HP ---
HISTORY AND PHYSICAL DATE OF ADMISSION: 06/09/2017 PRESENTING COMPLAINT: Seizures. HISTORY OF PRESENTING COMPLAINT: This is a 41-year-old patient who follows with Dr. Eve Martin. Chronic stable medical conditions include diabetes, hypertension, hypothyroid, chronic anemia, and the patient is on hemodialysis. The patient in the past was on the ventilator, was comatose for 6 months and did have a PEG tube. Patient has recovered fully from that. The patient is legally blind and sister Lien takes care of her. Like stated, the patient is on hemodialysis. The patient normally gets a seizure about once a month; now presents with 2 episodes of seizures yesterday. Exact duration is unknown at this point. Patient did have these seizures, though, while she was in a dialysis chair; two of these. Patient did inform the staff that it seemed she has had more of these seizures after her dialysis. The patient currently feels back to her baseline. Patient otherwise has been taking her medications. REVIEW OF SYSTEMS: CONSTITUTIONAL: Tired. HEENT: Poor eyesight. RESPIRATORY: None. CARDIOVASCULAR: None. GASTROINTESTINAL: None. GENITOURINARY: None. MUSCULOSKELETAL: None. DERMATOLOGICAL: None. HEMATOLOGICAL: None. LYMPHATICS: None. PSYCHIATRY: None. NEUROLOGICAL: Poor eyesight. PAST MEDICAL HISTORY: 1. Diabetes mellitus, type 2. 2. End-stage kidney disease, on hemodialysis. 3. Hypertension. 4. Seizure disorder. 5. Hypothyroid. 6. The patient also had a stroke and was comatose for 6 months; then had a PEG and a vent; did not have any residual from the same. 7. The patient also has diabetic retinopathy and hemorrhage causing legal blindness. PAST SURGICAL HISTORY: 1. . 2. Tubal ligation. 3. Right arm shunt. 4. Left arm shunt that is closed and non-functioning. 5. Toes amputated on the left foot with partial left foot amputation. 6. Left cataract removal. SOCIAL HISTORY: Patient lives with her sister Lien, who is also her legal guardian. Uses a walker. No smoking. No alcohol. FAMILY HISTORY: Stroke, myocardial infarction, renal disease. HOME MEDICATIONS: 1. Tegretol 200 mg p.o. daily. 2. Depakote 250 mg p.o. daily. 3. Valproic acid 500 mg p.o. q.12. 4. Protonix 40 mg with breakfast. 5. Nifedipine ER 90 mg p.o. daily. 6. Toprol XL 25 mg p.o. daily. 7. Lipitor 40 mg at bedtime. 8. Ventolin HFA 1 or 2 puffs q.i.d. p.r.n. ALLERGIES: NONE. PHYSICAL EXAMINATION: Temperature 98.6, pulse 80, respiration 16, blood pressure 189/80, pulse ox 99% on room air. Blood pressure before was 1149/79. GENERAL APPEARANCE: Average build. Lying in bed, tired-appearing, awake. EYES: Pupils equal. Conjunctivae normal. HEENT: External appearance of nose and ears normal. Oral cavity normal. NECK: JVD not raised. Mass not palpable. RESPIRATORY: Effort normal. LUNGS: Fair air entry. CARDIOVASCULAR: First and second sounds normal. No edema. ABDOMEN: Soft, nontender. Liver and spleen not palpable. LYMPHATIC: No lymph node palpable in neck or axillae. PSYCHIATRY: Alert, oriented x3. Mood and affect normal. NEUROLOGICAL: Vision is down; can only recognize outlines. Moving all 4 limbs. INVESTIGATIONS: White count 5.8, hemoglobin 10.3, potassium 3.3, BUN 20, creatinine 3.90. Accu-Cheks are noted. ASSESSMENT: 1. Recurrent seizures in a patient who was on hemodialysis; maybe the timing of her medication in relation to the hemodialysis is making a difference. Patient does state that Dr. Dial can coordinate that better. Will await her input. 2. Secondary hyperparathyroidism. 3. Generalized tonic-clonic seizure disorder. 4. End-stage kidney disease, on hemodialysis. 5. Diabetic retinopathy with hemorrhage with poor vision. PLAN: Continue current medication and treatment plan. Consultations to Neurology and Nephrology were done. Care was discussed with the patient. Home medications in the meantime were resumed. MMODL / IJN: [id number] /
[2017-06-10 17:13] LABS: Glucose,Whole Blood 115 mg/dL (75-99)
[2017-06-10] MEDS: INSULIN ASPART 100 UNIT/ML 1 ML 10 ML VIAL SQ SCH ×2 (17:33→21:23)
[2017-06-10 20:37] LABS: Glucose,Whole Blood 171 mg/dL (75-99)
[2017-06-10] MEDS: LACOSAMIDE 50 MG TABLET PO SCH (21:23)
[2017-06-10] MEDS: SODIUM CHLORIDE 0.9% 1,000 ML IV SCH (21:24)
[2017-06-10] MEDS: ATORVASTATIN 40 MG TAB PO SCH (21:24)
--- NOTE | 2017-06-10 22:38 | CONS ---
CONSULTATION DATE OF CONSULTATION: 06/10/2017 CHIEF COMPLAINT: Seizure disorder. HISTORY OF PRESENT ILLNESS: Mrs. Lucas is a pleasant 41-year-old, female, who was being evaluated by the neurology service per the request of Dr. Farmer for seizures. The patient was brought into [facility] Emergency Room after she had 2 breakthrough seizures at home. She has a long-standing history of seizures and according to her home medications, she is supposed to be on Tegretol and Depakote. She states that her seizures are not well controlled. Although she admits that she recently ran out of Tegretol. She states that even when she is compliant with her medications, she normally has 1 breakthrough seizure per month. Her serum Tegretol level on this admission was less than 3. Serum Depakote level was not drawn. The patient was admitted for further workup and management. At the time of my evaluation, she is sitting in her bedside chair and appears to be in no acute distress. I did review her laboratory workup and her CBC showed mild anemia with a hemoglobin of 10.3 and hematocrit of 30%. Her comprehensive metabolic profile showed mild hypokalemia at 3.3 and elevated BUN and creatinine at 20 and 3.9. She does have history of end-stage renal disease and is on hemodialysis. Nephrology has been consulted. PAST MEDICAL HISTORY: Seizure disorder, end-stage renal disease, diabetes, hypertension, hypothyroidism, history of stroke, history of previous tracheostomy and PEG tube placement, history of diabetic retinopathy and peripheral polyneuropathy, history of tubal ligation, right arm shunt placement, , toe amputations, cataract surgery. SOCIAL HISTORY: She denies any tobacco or alcohol or drug use. FAMILY HISTORY: Positive for renal disease, heart disease, and strokes. HOME MEDICATIONS: Reviewed in the chart. ALLERGIES: No known drug allergies. REVIEW OF SYSTEMS: CONSTITUTIONAL: Negative. EYES: Positive for chronic diminished vision. ENT: Negative. CARDIOVASCULAR: Negative. RESPIRATORY: Negative. NEUROLOGICAL: As mentioned above. GASTROINTESTINAL: Negative. GENITOURINARY: As mentioned above. DERMATOLOGICAL: Negative. MUSCULOSKELETAL: Positive for occasional joint pain. PSYCHIATRIC: Negative. PHYSICAL EXAM: Vital signs show a temperature of 98.1, pulse 75, respirations 16, blood pressure 154/75. GENERAL APPEARANCE: The patient is a well-developed female, who appears to be in no acute distress. HEENT: Normocephalic, atraumatic, visual acuity significantly reduced, mild exotropia is noticed in the right eye, no facial asymmetry is seen. NECK: Supple with no masses felt. CARDIOVASCULAR: Regular rate and rhythm. ABDOMEN: Nontender nondistended. Extremities showed no edema or clubbing. Neurological exam: The patient is alert and oriented x3. Speech and language are normal. Strength is 4+ out of 5 in bilateral lower extremities and 5- out of 5 in bilateral upper extremities. Sensory exam showed diminished light touch sensation in bilateral distal lower extremities. No tremors or seizure-like activity is seen. Cranial nerve testing showed decreased visual acuity bilaterally with no facial asymmetry seen. IMPRESSION: 1. Seizure disorder, uncontrolled. 2. End-stage renal disease. 3. Medication noncompliance. 4. Diabetic retinopathy. 5. Peripheral polyneuropathy. RECOMMENDATION: The patient did have breakthrough seizures as mentioned above. She does admit that she ran out of her Tegretol. She is currently not following with any local neurologist. I had a lengthy discussion with her regarding the importance of medication compliance with her seizure disorder. I also discussed with her various treatment options. Given the fact that Tegretol and Depakote need to be monitored as far as levels, and given her hemodialysis history, I do recommend switching her antiepileptic medications. For now, given that Tegretol is not in her system, I will discontinue this medication. and start her on a renal dose of Vimpat, at 50 mg b.i.d. Continue Depakote at the current dose for now, but this will be adjusted further in the outpatient clinic. I will order a serum Depakote level. An EEG has been ordered. Continue neuro checks. Nephrology has been consulted for her hemodialysis. I will continue to follow with you. Further recommendations to follow. Thank you for allowing me to participate in the care of your patient. If you have any questions, please feel free to contact me. Please send a copy of this dictation to Dr. Eve Martin and to Dr. Farmer and to my office. MARLIN / SACHI: [id number] /
[2017-06-11 07:13] LABS: Glucose,Whole Blood 94 mg/dL (75-99)
[2017-06-11] MEDS: INSULIN ASPART 100 UNIT/ML 1 ML 10 ML VIAL SQ SCH ×4 (08:28→21:51)
[2017-06-11] MEDS: PANTOPRAZOLE 40 MG TABLET PO SCH (10:42)
[2017-06-11 11:11] LABS: Glucose,Whole Blood 122 mg/dL (75-99)
[2017-06-11] MEDS: NIFEdipine XL 90 MG TAB.ER.24 PO SCH (12:26)
[2017-06-11] MEDS: METOPROLOL SUCCINATE (ER) 25 MG TAB.ER.24H PO SCH (12:26)
[2017-06-11] MEDS: DIVALPROEX 250 MG TABLET.DR PO SCH (12:27)
[2017-06-11] MEDS: VALPROIC ACID ORAL SOLN 250 MG/5 ML CUP PO SCH ×2 (12:27→22:12)
--- NOTE | 2017-06-11 16:12 | PN ---
PROGRESS NOTE DATE OF SERVICE: June 11, 2017. PRESENT COMPLAINT: Breakthrough seizures. INTERVAL HISTORY: The patient with known seizures had break through seizures. Medications adjusted by Dr. Dejesus. Patient due for hemodialysis today. No further episode. The patient does feel a bit tired. REVIEW OF SYSTEMS: Done for constitutional, cardiovascular, GI, pulmonary, neuro, relevant findings as above. CURRENT MEDICATIONS: Reviewed that include Vimpat, that is new and Depakene. Tegretol has been discontinued. EXAMINATION: Temp 99, pulse 75, respiration 16, blood pressure 175/76, pulse ox 98% on room air. General appearance: Lying in bed comfortable. Eyes pupils equal. Conjunctivae are normal. HEENT external appearance of nose and ears normal. Oral cavity normal. Neck JVD not raised. Mass not palpable. Respiratory effort normal. Lungs are clear. Cardiovascular 1st and 2nd sounds normal. No edema. ABDOMEN: Soft, nontender. Liver and spleen not palpable. Psychiatry: Alert and oriented x3. Mood and affect normal. INVESTIGATIONS: Accu-Cheks are noted. ASSESSMENT: 1. Breakthrough seizure in a patient with known grand mal generalized tonic-clonic epilepsy, possibly being affected by hemodialysis. 2. Secondary hyperparathyroidism. 3. End-stage kidney disease on hemodialysis. 4. Diabetic retinopathy with hemorrhage with poor vision. PLAN: We will see how the patient does with adjusted medications. If no further change, hopefully can be discharged tomorrow. MMLEONARDOL / GARTHN: [id number] /
--- NOTE | 2017-06-11 17:12 | CONS ---
CONSULTATION Patient is seen in consultation for end-stage renal disease. DATE OF CONSULTATION: 06/11/2017. REASON FOR CONSULT: End-stage renal disease. HISTORY OF PRESENT ILLNESS: Patient is a 41-year-old female who was admitted to the hospital with a seizure at dialysis. She is being followed by Neurology. The patient has had seizures for a long time. It appears that her seizures of better controlled previously. However, over the last 3-4 months, she has had more than usual breakthrough seizures. The patient states that once she was discharged from recent hospitalization, her medications were not ordered as she had been taking previously. As outpatient, patient has been taking her Depakote towards the end of the treatment. It looks like her medications are further adjusted by Neurology on this admission. PAST MEDICAL HISTORY: Seizure disorder, end-stage renal disease, diabetic retinopathy, hypertension, CKD, mineral bone disorder, history of CVA, TIA, hypothyroidism. PAST SURGICAL HISTORY: , tubal ligation, right arm AV fistula, cataract surgery, partial left foot amputation. SOCIAL HISTORY: Negative for smoking, drug abuse or alcohol abuse. MEDICATIONS: Medications at home included nifedipine valproic acid, Toprol, albuterol, Lipitor, Depakote, Tegretol. REVIEW OF SYSTEMS: As per HPI. Other systems negative. PHYSICAL EXAMINATION: Patient is comfortable, awake. She is not in any acute distress. Blood pressure is 175/76, heart rate 74 per minute. She is afebrile. Examination of the heart: S1, S2. Examination lungs: Bilateral breath sounds are heard. Abdomen is soft, nontender. Examination lower extremities show no significant edema. MASH PREPARATORY OPERATOR exam is grossly intact. Patient moving all 4 extremities. LAB: Show a valproic acid of 59.9, Tegretol was less than 3, Dilantin was less than 3. Potassium was 3.3 from 06/09 and hemoglobin 10.3. ASSESSMENT: 1. End-stage renal disease, on hemodialysis on a Thursday, , Thursday schedule. Patient will be dialyzed today. 2. Seizure disorder with multiple breakthrough seizures. The patient had been taking her medications towards the end of dialysis to avoid increased clearance of the antiepileptic medications. She hardly had any of the Dilantin or Tegretol in her system on admission. Currently she has a good level for Depakote which she continues and lacosamide was another new medication that was added. 3. Chronic kidney disease mineral bone disorder. 4. Hypertension. PLAN: Continue current antihypertensive medications. Hemodialysis today. UF of about 2 L. Continue off of IV fluids and close monitoring of Depakote levels. The patient is advised to follow up closely with Neurology as outpatient. DISCUSSED WITH PHARMACY. NO DOSE ADJUSTMENT NEEDED FOR DEPAKOTE WITH HEMODIALYSIS. WE CAN GIVE 50% OF DOSE FOR LACOSAMIDE POST DIALYSIS IF SHE HAS BREAKTHROUGH SEIZURES. THAT WOULD BE EXTRA 25MG. MMODL / IJN: [id number] / MTDD
[2017-06-11 17:31] LABS: Glucose,Whole Blood 109 mg/dL (75-99)
[2017-06-11] MEDS: LACOSAMIDE 50 MG TABLET PO SCH ×2 (17:39→22:16)
--- NOTE | 2017-06-11 18:21 | EEG ---
ELECTROENCEPHALOGRAM REPORT DATE OF SERVICE: 06/11/2017. REASON FOR TESTING: Seizures. CURRENT ANTIEPILEPTIC MEDICATIONS: Depakote and Vimpat. DESCRIPTION OF THE PROCEDURE: This EEG was performed using a 21 channel digital electroencephalograph, following international 10-20 system. DESCRIPTION OF THE RECORDING: From the beginning of the tracing, and with patient's eyes closed, the background rhythm was mostly consisting of 8 Hz alpha frequency in the posterior occipital leads. No obvious asymmetry is seen. Photic stimulation was performed with a good driving response seen. No pathological waves were elicited. Hyperventilation was not performed. Rare movement artifacts are seen. Occasional lead artifacts are noticed. The patient remains awake throughout the tracing. No epileptiform discharges were seen. Her EKG lead showed a regular rate and rhythm. INTERPRETATION: This awake EEG can be considered within normal limits. There was no asymmetry seen. No epileptiform discharges were noticed. The absence of epileptiform discharges does not rule out the diagnosis of epilepsy, therefore clinical correlation is recommended. MMJULIAN / GARTHN: [id number] /
[2017-06-11 21:22] LABS: Glucose,Whole Blood 108 mg/dL (75-99)
[2017-06-11] MEDS: ATORVASTATIN 40 MG TAB PO SCH (22:13)
[2017-06-11] MEDS: ACETAMINOPHEN TAB 325 MG TAB PO PRN (22:16)
--- NOTE | 2017-06-11 22:20 | P.PN ---
Subjective Progress Note Date: 06/11/17 Principal diagnosis: seizure disorder Neurology is following on a 41-year-old female being evaluated for seizure. Patient has a long history of seizure disorder. Home medication includes Tegretol and Depakote. Patient states seizures are not well controlled. Patient is noncompliant with her medication. Patient ran out of Tegretol. Patient states even when she is compliant she has approximately one breakthrough seizure per month. Serum Tegretol level at admission was less than 3. Serum Depakote level was not drawn. Patient was prescribed Vimpat 50 mg twice a day yesterday. Patient states she is is having good success with the medication, no new adverse effects and does have some increased mood. On contact, the patient was supine in bed, resting in no acute distress. Patient was alert and oriented 4. Objective - Vital Signs Vital signs: Vital Signs Temp 98 F 06/11/17 15:00 Pulse 69 06/11/17 15:00 Resp 16 06/11/17 15:00 BP 235/89 06/11/17 15:00 Pulse Ox 100 06/11/17 15:00 Intake & Output 06/11/17 06/11/17 06/12/17 06:59 18:59 06:59 Intake Total 750 Balance 750 Intake: Intake, IV Titration 160 Amount Sodium Chloride 0.9% 1, 160 000 ml @ 20 mls/hr IV . Q24H [facility] Rx#:[id number] Oral 590 Other: Voiding Method Toilet Toilet Bedside Commode Bedside Commode # Voids 2 4 - Exam General appearance: Alert & oriented x4, no apparent distress. Head: Atraumatic, normocephalic, normal inspection Eyes: Well appearance, PERRLA, EOMI. Absent scleral icterus, conjunctival injection, nystagmus, periorbital swelling. Ear, nose and throat: Normal exam, mucous membranes moist Neck: Normal inspection, absent tenderness, lymphadenopathy. Respiratory: No increased work of breathing Cardiovascular: Regular rate, rhythm GI/abdominal: no tenderness, no guarding, no rebound, no rigidity. Extremities: All range of motion, normal capillary refill, no tenderness, pedal edema joint swelling, calf tenderness. Neurological: cranial nerves II through XII intact no lateralizing weakness no facial asymmetry no seizure activity noted on physical exam no pronator drift and no nystagmus. Left lower extremity: 4+/5 Right lower extremity: 4+ /5 Left upper extremity: 5-/5 Right upper extremity: 5-/5 Sensation: normal in all 4 extremities Psychological: Mood and affect appropriate for setting. - Labs CBC & Chem 7: 06/09/17 15:00 06/09/17 15:00 Labs: Abnormal Lab Results - Last 24 Hours (Table) 06/11/17 06/11/17 06/11/17 Range/Units 11:09 17:28 21:20 POC Glucose (mg/dL) 122 H 109 H 108 H (75-99) mg/dL Assessment and Plan (1) Seizure disorder Current Visit: Yes Status: Acute Code(s): G40.909 - EPILEPSY, UNSP, NOT INTRACTABLE, WITHOUT STATUS EPILEPTICUS SNOMED Code(s): 515523412 (2) Acute on chronic kidney failure Current Visit: No Status: Acute Code(s): N17.9 - ACUTE KIDNEY FAILURE, UNSPECIFIED; N18.9 - CHRONIC KIDNEY DISEASE, UNSPECIFIED SNOMED Code(s): 031802675 (3) Nausea & vomiting Current Visit: No Status: Acute Code(s): R11.2 - NAUSEA WITH VOMITING, UNSPECIFIED SNOMED Code(s): 18422720 Plan: 1. Seizure disorder 2. Nausea vomiting 3. Chronic kidney disease Patient does appear to have experienced seizure disorder secondary to noncompliance with seizure medication. Patient is currently back on medication plus prescribed: Vimpat 50 mg twice a day. patient states she is doing well with the Vimpat and has no new adverse effects or concerns. Patient has not had any seizures since being back on medication. Nursing confirms no new seizure-like activity. Ordered: Tegretol level Depakote level EEGnormal Continue DVT prophylaxis Continue Vimpat of existing dose and frequency Tegretol and Depakote will be adjusted based upon laboratory blood work results if needed or warranted. Discussed vagal nerve stimulator with the patient as a means to reduce reliance on seizure medication and increase compliance. We will discuss the matter further at the outpatient follow-up visit. Status: Neurology will follow on an as-needed basis. If the patient remains seizure free until the morning of June 12, 2017 and Tegretol and Depakote levels are within therapeutic window, the patient can be cleared for discharge from a neurological standpoint. I have discussed the plan of care with the physician prior to implementation and he agrees with the plan as implemented.
[2017-06-11 22:21] LABS: HCT 25.1 % (34.0-46.0); MCH 31.5 pg (25.0-35.0); MCV 92.6 fL (80.0-100.0); Mean Platelet Volume 7.5; Platelet Count 258 k/uL (150-450); RBC 2.71 m/uL (3.80-5.40); RDW 13.8 % (11.5-15.5); WBC 9.5 k/uL (3.8-10.6)
[2017-06-11] MEDS: SODIUM CHLORIDE 0.9% 1,000 ML IV SCH (22:21)
[2017-06-11 22:29] LABS: Albumin 3.6 g/dL (3.5-5.0); Calcium 9.1 mg/dL (8.4-10.2); HGB 8.5 gm/dL (11.4-16.0); Potassium 4.3 mmol/L (3.5-5.1); Total Bilirubin 0.3 mg/dL (0.2-1.3); Total Protein 6.6 g/dL (6.3-8.2)
[2017-06-11 22:34] LABS: Valproic Acid (Depakene) 54.2 ug/mL
[2017-06-12 07:20] LABS: Glucose,Whole Blood 105 mg/dL (75-99)
[2017-06-12] MEDS: INSULIN ASPART 100 UNIT/ML 1 ML 10 ML VIAL SQ SCH ×4 (08:26→22:23)
[2017-06-12] MEDS: PANTOPRAZOLE 40 MG TABLET PO SCH (09:01)
[2017-06-12] MEDS: NIFEdipine XL 90 MG TAB.ER.24 PO SCH (09:01)
[2017-06-12] MEDS: METOPROLOL SUCCINATE (ER) 25 MG TAB.ER.24H PO SCH (09:01)
[2017-06-12] MEDS: DIVALPROEX 250 MG TABLET.DR PO SCH (09:01)
[2017-06-12] MEDS: LACOSAMIDE 50 MG TABLET PO SCH ×2 (09:04→22:23)
--- NOTE | 2017-06-12 10:11 | P.PN ---
Progress Note - Text Progress Note Date: 06/12/17 I discussed with pharmacy regarding the seizure medications. Depakote does not need adjustment for Hemodialysis. For Lacosamide we can give extra 50% of dose post dialysis if she has breakthrough seizures. Continue to monitor as outpatient.
[2017-06-12] MEDS: VALPROIC ACID ORAL SOLN 250 MG/5 ML CUP PO SCH ×2 (10:57→22:23)
[2017-06-12 11:42] LABS: Glucose,Whole Blood 99 mg/dL (75-99)
--- NOTE | 2017-06-12 14:43 | CDI ---
Last Revision, February 2017 Documentation Clarification Form Date: 06/12/17 [id number] From: Alanna Lanier RN, CCDS Admit Date: 06/09/2017 7:40:00 PM Patient Name: Katia Lucas Visit Number: [id number] ATTENTION: The Clinical Documentation Specialists (CDI) and [facility] Coding Staff appreciate your assistance in clarifying documentation. Please respond to the clarification below the line at the bottom and electronically sign. The CDI & [facility] Coding staff will review the response and follow-up if needed. Please note: Queries are made part of the Legal Health Record. If you have any questions, please contact the author of this message via ITS. Dr. Frantz Farmer A diagnosis of anemia lacks specificity to accurately reflect your patients severity of condition and clarification is needed. History/Risk Factors: Chronic normocytic anemia, ESRD, HTN, Seizure Disorder, hypothyroid Clinical indicators: 06/10 Neuro: "I did review her laboratory workup and her CBC showed mild anemia with a hemoglobin of 10.3 and hematocrit of 30%." Hemoglobin: 10.3/8.5 Hematocrit: 30/25.1 Treatment: Lab monitoring In order to capture the severity of condition, please clarify the type of anemia and etiology if known: Chronic blood loss anemia Iron deficiency anemia Hemolytic anemia Drug induced anemia Nutritional anemia Anemia of chronic kidney disease Anemia of chronic disease Unable to determine Other, please specify Please continue to document in your progress notes and discharge summary in order to capture severity of illness and risk of mortality. Include clinical findings that support your diagnosis. MTDD
--- NOTE | 2017-06-12 16:31 | DS ---
DISCHARGE SUMMARY DATE OF ADMISSION: 06/09/2017. DATE OF DISCHARGE: 06/12/2017 FINAL DIAGNOSES: 1. Breakthrough seizures with known grand mal seizures/tonic-clonic epilepsy. 2. Secondary hyperparathyroidism. 3. Anemia of chronic disease secondary to end-stage kidney disease. 4. End-stage kidney disease, on hemodialysis. 5. Diabetic retinopathy with hemorrhage and poor vision, idiopathic. HOSPITAL COURSE: This patient presented with at least 2 seizure episodes. Patient was seen by Dr. Dejesus from Neurology. Patient did have an EEG that was within normal limits. Vimpat was added. Tegretol was discontinued. Depakote was continued. Patient had no further seizures. Did get hemodialysis. Doing well. On examination, poor vision. Lungs are clear. CARDIOVASCULAR: First and second sounds normal. CONSULTATIONS: 1. Dr. Dial from Nephrology. 2. Dr. Dejesus from Neurology. DISCHARGE MEDICATIONS: 1. Lipitor 40 mg at bedtime. 2. Nifedipine ER 90 mg p.o. daily. 3. Valproic acid 500 mg p.o. q.12. 4. Protonix 40 mg p.o. with breakfast. 5. Ventolin HFA 1-2 puffs q.i.d. p.r.n. 6. Toprol XL 25 mg p.o. daily. 7. Depakote 250 mg p.o. daily. 8. Vimpat 50 mg p.o. b.i.d. DISCONTINUED: Tegretol. FOLLOWUP: Follow up with Dr. Eve Martin in 1-2 days. Follow up with Dr. Dejesus in 1 week. Hemodialysis schedule is to continue. MMODL / IJN: [id number] /
[2017-06-12 17:39] LABS: Glucose,Whole Blood 110 mg/dL (75-99)
[2017-06-12] MEDS: LISINOPRIL 5 MG TAB PO SCH (18:36)
--- NOTE | 2017-06-12 19:34 | PN ---
PROGRESS NOTE Patient is seen for followup for end-stage renal disease. She has underlying seizures and was admitted with breakthrough seizures. Patient is doing well. She has not had any further seizures. She will be discharged today. On examination, blood pressure is elevated at 185/83, heart rate of 73 per minute. Patient is afebrile. EXAMINATION OF THE HEART: S1, S2. EXAMINATION OF LUNGS: Bilateral breath sounds are heard. ABDOMEN: Soft, non-tender. Examination of lower extremities shows no evidence of edema. NURSING EDUCATION CONSULTANT exam is grossly intact. Labs show sodium 135, potassium 4.3 from yesterday. Hemoglobin was 8.5 g/dL. ASSESSMENT: 1. End-stage renal disease, on hemodialysis on a Thursday, , Thursday schedule. 2. Seizure disorder with breakthrough seizures, currently maintained on Depakote and lacosamide, which was started on this admission. 3. Anemia of chronic disease. No active bleeding noted. Hemoglobin dropped quite a bit from 3/13 to 315. Will monitor as outpatient. Patient is maintained on . 4. Hypertension, uncontrolled, currently on Toprol and Procardia. We can add MICHELLE inhibitors and continue to follow as outpatient. PLAN: Patient is stable for discharge. She will have hemodialysis in a.m., which can be done as outpatient, and we will monitor her blood pressure and hemoglobin as outpatient. MMODL / IJN: [id number] /
[2017-06-12 19:55] LABS: Glucose,Whole Blood 154 mg/dL (75-99)
[2017-06-12] MEDS: ATORVASTATIN 40 MG TAB PO SCH (22:23)
[2017-06-12] MEDS: SODIUM CHLORIDE 0.9% 1,000 ML IV SCH (23:40)
[2017-06-13 07:09] LABS: Glucose,Whole Blood 84 mg/dL (75-99)
[2017-06-13] MEDS: DIVALPROEX 250 MG TABLET.DR PO SCH (07:39)
[2017-06-13] MEDS: LISINOPRIL 5 MG TAB PO SCH ×2 (07:39→10:06)
[2017-06-13] MEDS: VALPROIC ACID ORAL SOLN 250 MG/5 ML CUP PO SCH (07:39)
[2017-06-13] MEDS: NIFEdipine XL 90 MG TAB.ER.24 PO SCH (07:40)
[2017-06-13] MEDS: PANTOPRAZOLE 40 MG TABLET PO SCH (07:40)
[2017-06-13] MEDS: METOPROLOL SUCCINATE (ER) 25 MG TAB.ER.24H PO SCH (07:40)
[2017-06-13] MEDS: LACOSAMIDE 50 MG TABLET PO SCH (07:43)
[2017-06-13] MEDS: INSULIN ASPART 100 UNIT/ML 1 ML 10 ML VIAL SQ SCH (07:44)
[2017-06-13 08:10] VITALS: BP 207/91; PULSE 63; RESP 16; TEMP 98.3
== END 2017-06-13 12:55 | disposition home or self-care (01) | DRG 100 ==
LOC: EC 14:44 → 5ONC 19:40
PROVIDERS: ADMIT Hospitalist; ATTEND Hospitalist
PROC: 5A1D70Z Performance of Urinary Filtration, Intermittent, Less than 6 Hours Per Day (ICD-10-PCS; principal; 2017-06-13)
DX: G40.409 Other generalized epilepsy and epileptic syndromes, not intractable, without status epilepticus (principal); N18.6 End stage renal disease; N17.9 Acute kidney failure, unspecified; I12.0 Hypertensive chronic kidney disease with stage 5 chronic kidney disease or end stage renal disease; N25.81 Secondary hyperparathyroidism of renal origin; E11.22 Type 2 diabetes mellitus with diabetic chronic kidney disease; E11.319 Type 2 diabetes mellitus with unspecified diabetic retinopathy without macular edema; E11.42 Type 2 diabetes mellitus with diabetic polyneuropathy; E03.9 Hypothyroidism, unspecified; H54.8 Legal blindness, as defined in USA; M89.9 Disorder of bone, unspecified; E87.6 Hypokalemia; D63.1 Anemia in chronic kidney disease; Z79.899 Other long term (current) drug therapy; Z86.73 Personal history of transient ischemic attack (TIA), and cerebral infarction without residual deficits; Z99.2 Dependence on renal dialysis; Z91.14 Patient's other noncompliance with medication regimen; Z89.432 Acquired absence of left foot; Z82.49 Family history of ischemic heart disease and other diseases of the circulatory system
CPT/HCPCS: 36415; 80053; 80156; 80164; 80185; 83036; 85025; 85027; 87324; 90935; 93005; 95816; 96365; 99285

== ENCOUNTER 2017-06-19 13:51 | Inpatient (IN) | payer MEDICARE, OTHER ==
--- NOTE | 2017-06-19 16:41 | XR ---
EXAMINATION TYPE: XR foot complete RT DATE OF EXAM: 06/19/2017 CLINICAL HISTORY: pain TECHNIQUE: Frontal, lateral and oblique images of the right foot are obtained. COMPARISON: None. FINDINGS: There is no acute fracture/dislocation evident. Soft tissue ulceration of the great toe. N o bony destructive process identified. Moderate degenerative narrowing interphalangeal joint space. . IMPRESSION: There is no acute fracture or dislocation. Soft tissue ulceration without evidence for osteomyelitis at this time. ICD 10 NO FRACTURE, INITIAL EVALUATION
[2017-06-19 17:21] LABS: Basophils % (A) 1 %; Eosinophils # (A) 0.1 k/uL (0-0.7); Eosinophils % (A) 1 %; HCT 31.9 % (34.0-46.0); HGB 10.4 gm/dL (11.4-16.0); Lymphocytes # (A) 1.8 k/uL (1.0-4.8); Lymphocytes % (A) 25 %; MCH 30.2 pg (25.0-35.0); MCHC 32.5 g/dL (31.0-37.0); MCV 92.8 fL (80.0-100.0); Mean Platelet Volume 7.4; Monocytes # (A) 0.4 k/uL (0-1.0); Monocytes % (A) 6 %; Neutrophils # (A) 4.6 k/uL (1.3-7.7); Neutrophils % (A) 66 %; Platelet Count 205 k/uL (150-450); RBC 3.43 m/uL (3.80-5.40); RDW 13.1 % (11.5-15.5)
--- NOTE | 2017-06-19 17:29 | ED ---
Skin/Abscess/FB HPI - General Chief complaint: Skin/Abscess/Foreign Body Stated complaint: Toe pain Time Seen by Provider: 06/19/17 15:54 Source: patient, RN notes reviewed Mode of arrival: wheelchair Limitations: no limitations - History of Present Illness Initial comments: 41-year-old female comes emergency Department chief complaint infection to her right foot first digit. Patient states that she had a callused on their several weeks ago which her doctor opened up. Patient states that they have now noticed that there is increased redness and some discomfort. She states that she normally does not feel well to her feet but she notes that she has pain now currently. Patient denies any known fevers or chills. Patient states that she has not gone to dialysis in 2 days now. Patient states she was scheduled for dialysis yesterday did not feel well so rescheduled today though came the emergency Department instead. Patient's had problems with infections she's had multiple toe amputations in the past. - Related Data Home Medications Medication Instructions Recorded Confirmed Atorvastatin [Lipitor] 40 mg PO DAILY 09/03/16 06/19/17 NIFEdipine [NIFEdipine ER] 90 mg PO DAILY 09/03/16 06/19/17 Valproic Acid 500 mg PO Q12H 09/03/16 06/19/17 Albuterol Inhaler [Ventolin Hfa 1 - 2 puff INHALATION RT-QID PRN 05/07/17 Inhaler] Metoprolol Succinate (ER) [Toprol 25 mg PO DAILY 05/07/17 06/19/17 XL] Divalproex [Depakote] 250 mg PO DAILY 06/09/17 06/19/17 Previous Rx's Medication Instructions Recorded Pantoprazole [Protonix] 40 mg PO AC-BRKFST #30 tab 09/05/16 Lacosamide [Vimpat] 50 mg PO BID #60 tablet 06/12/17 Allergies Allergy/AdvReac Type Severity Reaction Status Date / Time No Known Allergies Allergy Verified 06/19/17 16:05 Review of Systems ROS Statement: Those systems with pertinent positive or pertinent negative responses have been documented in the HPI. ROS Other: All systems not noted in ROS Statement are negative. Past Medical History Past Medical History: CVA/TIA, Diabetes Mellitus, Dialysis, Hypertension, Renal Disease, Seizure Disorder, Thyroid Disorder Additional Past Medical History / Comment(s): Sister, Lien, who is caregiver states pt has a callous on R great toe that she was going to show to pt's doctor tomorrow, diabetes mellitus type II-diet controlled, end-stage renal disease currently on hemodialysis for the past 3 years, normocytic anemia, CVA was comatose for 6 months/vented/peg tube-no residual, TIA, seizure disorder with last seizure 05/07/17, hypothyroidism but pt states now controlled, patient is legally blind with diabetic retinopathy and retinal hemorrhage-can see shadows with L eye, hx of head trauma and concussion, History of Any Multi-Drug Resistant Organisms: None Reported Past Surgical History: Section, Tubal Ligation Additional Past Surgical History / Comment(s): right arm shunt(ACTIVE), ( LT ARM SHUNT CLOGGED NON FUNCTIONING). toes amputated ON LT FOOT. PARTIAL left foot AMP, LT CATARACT REMOVED HAS LENS IMPLANT Past Anesthesia/Blood Transfusion Reactions: No Reported Reaction Past Psychological History: No Psychological Hx Reported Smoking Status: Never smoker Past Alcohol Use History: None Reported Past Drug Use History: None Reported - Past Family History Mother Family Medical History: CVA/TIA, Myocardial Infarction (MT), Renal Disease Father Family Medical History: Congestive Heart Failure (CHF), CVA/TIA, Diabetes Mellitus, Hypertension, Vascular Disorder Additional Family Medical History / Comment(s): bka General Exam Limitations: no limitations General appearance: alert, in no apparent distress Respiratory exam: Present: normal lung sounds bilaterally. Absent: respiratory distress, wheezes, rales, rhonchi, stridor Cardiovascular Exam: Present: regular rate, normal rhythm, normal heart sounds. Absent: systolic murmur, diastolic murmur, rubs, gallop, clicks Extremities exam: Present: other (Right foot first digit there is erythematous open sore with surrounding callus on the plantar surface of the digit Refill less than 2 seconds there is mild swelling of the digit erythema does not extend past the MTP region) Skin exam: Present: warm, dry Course Vital Signs 06/19/17 06/19/17 15:05 17:53 Temperature 98.3 F Pulse Rate 80 74 Respiratory 20 18 Rate Blood Pressure 170/79 186/86 O2 Sat by Pulse 99 100 Oximetry Medical Decision Making - Lab Data Result diagrams: 06/19/17 17:00 06/19/17 17:00 Lab Results 06/19/17 06/19/17 06/19/17 Range/Units 17:00 17:00 17:47 WBC 7.0 (3.8-10.6) k/uL RBC 3.43 L (3.80-5.40) m/uL Hgb 10.4 L (11.4-16.0) gm/dL Hct 31.9 L (34.0-46.0) % MCV 92.8 (80.0-100.0) fL MCH 30.2 (25.0-35.0) pg MCHC 32.5 (31.0-37.0) g/dL RDW 13.1 (11.5-15.5) % Plt Count 205 (150-450) k/uL Neutrophils % 66 % Lymphocytes % 25 % Monocytes % 6 % Eosinophils % 1 % Basophils % 1 % Neutrophils # 4.6 (1.3-7.7) k/uL Lymphocytes # 1.8 (1.0-4.8) k/uL Monocytes # 0.4 (0-1.0) k/uL Eosinophils # 0.1 (0-0.7) k/uL Basophils # 0.0 (0-0.2) k/uL Sodium 137 (137-145) mmol/L Potassium 6.4 H* (3.5-5.1) mmol/L Chloride 102 (98-107) mmol/L Carbon Dioxide 17 L (22-30) mmol/L Anion Gap 18 mmol/L BUN 91 H* (7-17) mg/dL Creatinine 10.90 H* (0.52-1.04) mg/dL Est GFR (CKD-EPI)AfAm 4 (>60 ml/min/1.73 sqM) Est GFR (CKD-EPI)NonAf 4 (>60 ml/min/1.73 sqM) Glucose 103 H (74-99) mg/dL Calcium 9.8 (8.4-10.2) mg/dL Phosphorus 6.9 H (2.5-4.5) mg/dL Magnesium 2.2 (1.6-2.3) mg/dL Total Bilirubin 0.3 (0.2-1.3) mg/dL AST 9 L (14-36) U/L ALT 8 L (9-52) U/L Alkaline Phosphatase 69 (38-126) U/L C-Reactive Protein <5.0 (<10.0) mg/L Total Protein 7.0 (6.3-8.2) g/dL Albumin 4.0 (3.5-5.0) g/dL Urine Color Light Yellow Urine Appearance Clear (Clear) Urine pH 8.0 (5.0-8.0) Ur Specific [place] 1.008 (1.001-1.035) Urine Protein 2+ H (Negative) Urine Glucose (UA) 2+ H (Negative) Urine Ketones Negative (Negative) Urine Blood Moderate H (Negative) Urine Nitrite Negative (Negative) Urine Bilirubin Negative (Negative) Urine Urobilinogen <2.0 (<2.0) mg/dL Ur Leukocyte Esterase Negative (Negative) Urine RBC 52 H (0-5) /hpf Urine WBC 6 H (0-5) /hpf Ur Squamous Epith Cells 5 H (0-4) /hpf Urine Bacteria Rare H (None) /hpf Disposition Clinical Impression: Hyperkalemia, Renal failure, History of noncompliance with medical treatment, Diabetic foot ulcer Dis[facility] Condition: Fair Referrals: Eve Martin MD [Primary Care Provider] - 1-2 days
[2017-06-19 17:44] LABS: ALT 8 U/L (9-52); AST 9 U/L (14-36); Alkaline Phosphatase 69 U/L (38-126); Anion Gap 18 mmol/L; C Reactive Protein <5.0 mg/L (<10.0); Calcium 9.8 mg/dL (8.4-10.2); Carbon Dioxide 17 mmol/L (22-30); Chloride 102 mmol/L (98-107); Glucose 103 mg/dL (74-99); Magnesium 2.2 mg/dL (1.6-2.3); Phosphorus 6.9 mg/dL (2.5-4.5); Sodium 137 mmol/L (137-145); Total Bilirubin 0.3 mg/dL (0.2-1.3)
[2017-06-19 17:51] LABS: Blood Urea Nitrogen 91 mg/dL (7-17); Potassium 6.4 mmol/L (3.5-5.1)
[2017-06-19 17:58] LABS: Appearance,Urine Clear (Clear); Bacteria,Urine Rare /hpf; Bilirubin,Urine Negative (Negative); Blood,Urine Moderate (Negative); Color,Urine Light Yellow; Glucose,Urine (UA) 2+ (Negative); Ketones,Urine Negative (Negative); Leukocyte Esterase,Urine Negative (Negative); Nitrite,Urine Negative (Negative); Protein,Urine 2+ (Negative); RBC,Urine 52 /hpf (0-5); Specific Gravity,Urine 1.008 (1.001-1.035); Squamous Epithelial Cell,Urine 5 /hpf (0-4); Urobilinogen,Urine <2.0 mg/dL (<2.0); WBC,Urine 6 /hpf (0-5)
[2017-06-19] MEDS ORDERED: NALOXONE 0.4 MG/ML 1 ML VIAL IV PRN (18:13)
[2017-06-19] MEDS ORDERED: VANCOMYCIN IV PER PHARMACY 1 EACH MISC MISCELLANE PRN (18:14)
[2017-06-19] MEDS ORDERED: SODIUM POLYSTYRENE SULFONATE 15 GM/60 ML BOTTLE PO STA (18:16)
[2017-06-19] MEDS ORDERED: DEXTROSE 50%-WATER 50 ML SYRINGE IVP STA (18:17)
[2017-06-19] MEDS ORDERED: INSULIN REGULAR 100 UNIT/ML VIAL IV ONE (18:17)
[2017-06-19] MEDS ORDERED: VANCOMYCIN 1,750 MG in SODIUM CHLORIDE 0.9% 250 ML IVPB STA (18:20)
[2017-06-19 20:14] LABS: Glucose,Whole Blood 108 mg/dL (75-99)
[2017-06-19] MEDS: LACOSAMIDE 50 MG TABLET PO SCH (21:07)
[2017-06-19] MEDS: VALPROIC ACID ORAL SOLN 250 MG/5 ML CUP PO SCH (21:07)
[2017-06-19 21:15] LABS: Glucose,Whole Blood 88 mg/dL (75-99)
[2017-06-20] MEDS: PANTOPRAZOLE 40 MG TABLET PO SCH (06:19)
[2017-06-20] MEDS: VALPROIC ACID ORAL SOLN 250 MG/5 ML CUP PO SCH ×2 (06:19→17:31)
[2017-06-20] MEDS: INSULIN ASPART 100 UNIT/ML 1 ML 10 ML VIAL SQ SCH ×4 (06:19→21:24)
[2017-06-20 06:29] LABS: Glucose,Whole Blood 79 mg/dL (75-99)
[2017-06-20] MEDS: NIFEdipine XL 90 MG TAB.ER.24 PO SCH (08:27)
[2017-06-20] MEDS: ATORVASTATIN 40 MG TAB PO SCH (08:27)
[2017-06-20] MEDS: LACOSAMIDE 50 MG TABLET PO SCH ×2 (08:32→20:03)
[2017-06-20] MEDS: METOPROLOL SUCCINATE (ER) 25 MG TAB.ER.24H PO SCH (09:00)
[2017-06-20] MEDS: DIVALPROEX 250 MG TABLET.DR PO SCH (09:00)
--- NOTE | 2017-06-20 09:28 | P.NPCON ---
History of Present Illness - Reason for Consult end stage renal disease - History of Present Illness Reason for consultation: End-stage renal disease History of present illness: Patient is a 41-year-old female seen in consultation for end-stage renal disease. She is maintained on hemodialysis on a Thursday schedule via left upper extremity AV fistula. Etiology of her renal disease is diabetic kidney disease. Patient presents to the hospital due to right foot ulceration. She states she had a callus that was opened up a few weeks ago. However she developed bleeding at the site and presented to the hospital. Her last hemodialysis was on Thursday. Her potassium was 6.4 on admission for which she did receive Kayexalate along with IV insulin and D50 in the emergency room. She is currently resting in bed. Denies any chest pain or shortness of breath. No vomiting or diarrhea. Oral intake is fair. Vital signs are stable. General: The patient appeared well nourished and normally developed. HEENT: Head exam is unremarkable. Neck is without jugular venous distension. LUNGS: Lungs are clear to auscultation and percussion. Breath sounds decreased. HEART: Rate and Rhythm are regular. First and second heart sounds normal. No murmurs, rubs or gallops. ABDOMEN: Abdominal exam reveals normal bowel sounds. Non-tender and non- distended. No evidence of peritonitis. EXTREMITITES: No clubbing, cyanosis, or edema. Right foot wrapped. No obvious drainage noted. Past Medical History Past Medical History: CVA/TIA, Diabetes Mellitus, Dialysis, Hypertension, Renal Disease, Seizure Disorder, Thyroid Disorder Additional Past Medical History / Comment(s): rt great toe wound. diabetes mellitus type II-diet controlled, end-stage renal disease currently on hemodialysis for the past 3 years thu//thu., normocytic anemia, CVA was comatose for 6 months/vented/peg tube-no residual, TIA, seizure disorder with last seizure 05/07/17, hypothyroidism but pt states now controlled, patient is legally blind with diabetic retinopathy and retinal hemorrhage-can see shadows with L eye, hx of head trauma and concussion, History of Any Multi-Drug Resistant Organisms: None Reported Past Surgical History: Section, Tubal Ligation Additional Past Surgical History / Comment(s): right arm shunt(ACTIVE), ( LT ARM SHUNT CLOGGED NON FUNCTIONING). toes amputated ON LT FOOT. PARTIAL left foot AMP, LT CATARACT REMOVED HAS LENS IMPLANT Past Anesthesia/Blood Transfusion Reactions: No Reported Reaction Past Psychological History: No Psychological Hx Reported Additional Psychological History / Comment(s): Pt is living with her sister cammie who is her caregiver. Pt is legally blind. Pt uses a walker to ambulate. He sister drives her to appts. Smoking Status: Former smoker Past Alcohol Use History: None Reported Past Drug Use History: None Reported - Past Family History Mother Family Medical History: CVA/TIA, Myocardial Infarction (DE), Renal Disease Father Family Medical History: Congestive Heart Failure (CHF), CVA/TIA, Diabetes Mellitus, Hypertension, Vascular Disorder Additional Family Medical History / Comment(s): bka Medications and Allergies Home Medications Medication Instructions Recorded Confirmed Type Atorvastatin [Lipitor] 40 mg PO DAILY 09/03/16 06/19/17 History NIFEdipine [NIFEdipine ER] 90 mg PO DAILY 09/03/16 06/19/17 History Valproic Acid 500 mg PO Q12H 09/03/16 06/19/17 History Pantoprazole [Protonix] 40 mg PO AC-BRKFST #30 tab 09/05/16 06/19/17 Rx Albuterol Inhaler [Ventolin Hfa 1 - 2 puff INHALATION RT-QID PRN 05/07/17 History Inhaler] Metoprolol Succinate (ER) [Toprol 25 mg PO DAILY 05/07/17 06/19/17 History XL] Divalproex [Depakote] 250 mg PO DAILY 06/09/17 06/19/17 History Lacosamide [Vimpat] 50 mg PO BID #60 tablet 06/12/17 06/19/17 Rx Allergies Allergy/AdvReac Type Severity Reaction Status Date / Time No Known Allergies Allergy Verified 06/19/17 16:05 Physical Exam Vitals: Vital Signs Temp Pulse Pulse Resp BP BP Pulse Ox 06/20/17 08:20 97.6 F 83 18 218/95 100 06/20/17 03:43 97.4 F L 65 16 167/79 97 06/19/17 23:30 98.6 F 87 18 138/80 97 06/19/17 21:49 78 18 06/19/17 20:01 80 18 173/79 98 06/19/17 19:17 77 18 172/77 100 06/19/17 17:53 74 18 186/86 100 06/19/17 15:05 98.3 F 80 20 170/79 99 Intake and Output 06/19/17 06/20/17 06/20/17 22:59 06:59 14:59 Intake Total 480 Balance 480 Intake: Oral 480 Other: Voiding Method Bedside Commode Bedside Commode # Voids 1 Weight 84 kg 83.8 kg Results - Lab Results Most recent lab results Calcium 9.8 mg/dL (8.4-10.2) 06/19/17 17:00 Phosphorus 6.9 mg/dL (2.5-4.5) H 06/19/17 17:00 Magnesium 2.2 mg/dL (1.6-2.3) 06/19/17 17:00 06/19/17 17:00 06/19/17 17:00 Assessment and Plan Plan: Assessment: #1. End-stage renal disease maintained on hemodialysis on a Thursday schedule via left upper extremity AV fistula. #2. Hyperkalemia secondary to chronic kidney disease and metabolic acidosis. #3. Metabolic acidosis secondary to chronic kidney disease. #4. Hypertension with chronic kidney disease. Uncontrolled. Partially related to missed dialysis. #5. Right foot ulcer maintained on antibiotics. #6. Diabetes mellitus. Plan: Hemodialysis today with goal 2-1/2 L ultrafiltration. I will check a potassium level stat now. Check phosphorus level. Antibiotics per infectious disease recommendations. Vascular surgery evaluation pending. Resume home antihypertensives. Add hydralazine 10 mg IV every 4 hours as needed for systolic blood pressure greater than 160. Expect improvement of electrolyte imbalance postdialysis. Thank you for the consultation. I will continue to follow the patient with you during her hospital stay.
[2017-06-20] MEDS ORDERED: LIDOCAINE 1% (PF) 10MG/ML VIAL SQ ONE (09:53)
[2017-06-20 10:11] LABS: Phosphorus 6.9 mg/dL (2.5-4.5); Potassium 5.8 mmol/L (3.5-5.1)
--- NOTE | 2017-06-20 10:21 | CONS ---
CONSULTATION This is a 41-year-old female consultation obtained because she has a callus, right foot big toe with some a redness and infection noted. Patient had a wound debridement done in the past. Patient came with bleeding from the wound area. She has been admitted. She also has a history of chronic renal failure. The patient is on dialysis. MEDICAL HISTORY: History of diabetes mellitus, history of hypertension, chronic renal failure, seizure disorder and patient is on dialysis. PHYSICAL EXAMINATION: NECK: Supple. Trachea central. CHEST: Clear to auscultation. ABDOMEN: Soft. Femoral pulses are palpable, dorsalis pedis palpable. The patient has a transmetatarsal amputation of the left foot in the past. The right big toe has a callus formation noted with some redness noted. PLAN: Debridement of the wound. IV antibiotic and local wound care. MMODL / IJN: [id number] /
[2017-06-20] MEDS: hydrALAZINE HCL 20 MG/ML 1 ML VIAL IVP PRN (11:42)
[2017-06-20 12:12] LABS: Glucose,Whole Blood 84 mg/dL (75-99)
--- NOTE | 2017-06-20 12:33 | OP ---
OPERATIVE REPORT PREOPERATIVE DIAGNOSIS: Infected callus right foot big toe, plantar aspect. Measurement is 1 x 1 cm. PROCEDURE: Excision of the callus down to subcutaneous tissue and culture taken from the deep tissue. PROCEDURE IN DETAIL: This patient has an infected callus right foot, came to the emergency room, admitted. The patient is on IV antibiotic. The patient had this callus for the last 1 month under care of the family doctor. The patient's femoral and dorsal pedis pulses present. The right big toe was clean and dressing applied in the usual sterile manner. 1% lidocaine plain infiltrated and using sharp scissor we excised the callus circumferentially and there was some deep tissue culture taken. No active bleeding was noted. We will use Santyl cream and patient will be continued on IV antibiotic. The patient can go home Thursday and I will follow in my office. Then we will arrange followup in the Wound Center because patient does not want to go to [facility]. This wound center at [facility] is closer and we will arrange. We will continue the Santyl cream daily. MMODL / IJN: [id number] /
[2017-06-20] MEDS: SEVELAMER 800 MG TAB PO SCH ×2 (12:48→17:27)
[2017-06-20] MEDS ORDERED: ONDANSETRON 4 MG/2 ML VIAL IVP PRN (13:28)
[2017-06-20] MEDS ORDERED: LORazepam 0.5 MG TAB PO PRN (13:28)
[2017-06-20] MEDS ORDERED: CALCIUM CARBONATE 500 MG CHEWABLE PO PRN (13:28)
[2017-06-20] MEDS ORDERED: MELATONIN 3 MG TABLET PO PRN (13:28)
[2017-06-20] MEDS ORDERED: NALOXONE 0.4 MG/ML 1 ML VIAL IV PRN (13:28)
[2017-06-20] MEDS ORDERED: ACETAMINOPHEN TAB 325 MG TAB PO PRN (13:28)
[2017-06-20] MEDS: HYDROcodone/APAP 5-325MG 1 EACH TAB PO PRN (13:29)
[2017-06-20 14:05] LABS: Hemoglobin A1C 4.6 % (4.0-6.0)
--- NOTE | 2017-06-20 14:18 | HP ---
HISTORY AND PHYSICAL DATE OF ADMISSION: 06/19/2017 PRESENT COMPLAINT: Infected right big toe. HISTORY OF PRESENTING COMPLAINT: This is a 41-year-old patient who follows with Dr. Eve Martin. Chronic stable medical conditions include diabetes, hypertension, hypothyroid, chronic anemia, and patient is also on hemodialysis. It maybe recalled that patient has in the past been on the ventilator and was comatose for 6 months, did have a PEG tube at that time and had full recovery from that. Patient also is legally blind and patient's sister Lien is a door liner. Patient was just in the hospital recently with seizures and medications were adjusted accordingly. Patient 2 weeks ago had a toenails taken care of by outside industrial sales representative and then it got infected. It was noticed yesterday it started draining and patient is having increasing pain in the last few days. It is unclear if the patient has any fever because the patient presented to the hospital. Dr. Jordan was consulted from Vascular and did take the patient down for debridement. The patient normally gets hemodialysis on Thursday, , and Thursday and did miss dialysis last . Otherwise, patient does feel a bit weak and tired. Tolerating a diet, otherwise. REVIEW OF SYSTEMS: CONSTITUTIONAL: Tired. HEENT: Poor eyesight. RESPIRATORY: None. CARDIOVASCULAR: None. GASTROINTESTINAL: None. GENITOURINARY: None. MUSCULOSKELETAL: None. DERMATOLOGICAL: As above. HEMATOLOGICAL: None. PSYCHIATRY: None. NEUROLOGICAL: Poor eyesight. PAST MEDICAL HISTORY: Diabetes mellitus type 2, end-stage kidney disease on hemodialysis, hypertension, seizure disorder, hypothyroid. Patient also had a stroke, was comatose for 6 months and had a PEG tube and was on a ventilator with complete recovery. The patient also had diabetic retinopathy and hemorrhage causing legal blindness. PAST SURGICAL HISTORY: tubal ligation, right arm shunt, left arm shunt that is closed and non- functioning, toes amputated on the left foot with partial left foot amputation, left cataract removal. SOCIAL HISTORY: Patient lives with her sister Lien, who is door liner and legal guardian. Does use a walker, no smoking, no alcohol. FAMILY HISTORY: Stroke, myocardial infarction, renal disease. HOME MEDICATIONS: 1. Valproic acid 500 mg q.12. 2. Protonix 40 mg breakfast. 3. Nifedipine ER 90 mg p.o. daily. 4. Toprol XL 25 mg p.o. daily. 5. Vimpat 50 mg b.i.d. 6. Depakote 250 mg p.o. daily. 7. Lipitor 40 mg p.o. daily. 8. Ventolin HFA 1 or 2 puffs q.i.d. p.r.n. ALLERGIES: None. PHYSICAL EXAMINATION: Vital signs on presentation, temperature 98.3, pulse 80, respiration 20, blood pressure 130/79, pulse ox 99% on room air. GENERAL APPEARANCE: Average build, lying in bed, awake. EYES: Pupils equal, conjunctivae normal. Poor eyesight/ HEENT: External nose and ear normal, oral cavity normal. NECK: JVD not raised. Mass not palpable. RESPIRATORY: Effort normal. LUNGS: Fair entry. CARDIOVASCULAR: First and second sounds normal. No edema. ABDOMEN: Soft, nontender. Liver and spleen not palpable. LYMPHATIC: No lymph nodes palpable in neck or axillae. PSYCHIATRY: Alert and oriented x3. Mood and affect normal. NEUROLOGICAL: Patient is awake, vision is down only to recognizing outlines. Moving all 4 limbs. MUSCULOSKELETAL: The patient has got an amputation of the left foot, toes and right toe infected, a dressing in place. INVESTIGATIONS: White count 7, hemoglobin 10.4, potassium 6.4, BUN 91, creatinine 10.9, phosphorus 6.9, calcium 9.8. ASSESSMENT: 1. Right big toe infected, underwent debridement by Dr. Coates with removal of the infected callus on the plantar aspect. 2. End-stage kidney disease on hemodialysis Thursday, , Thursday. The patient missed hemodialysis on . 3. 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 4. Tonic-clonic seizure disorder. 5. Diabetic retinopathy with poor eyesight, secondary to diabetes. 6. Essential hypertension. PLAN: Home medications are resumed. Patient did undergo debridement as above by Dr. Coates. Patient did get medications for her hyperkalemia. Dr. Cuadra was consulted for hemodialysis. Patient due for the same. Care was discussed with the patient. MMODL / IJN: [id number] /
[2017-06-20 17:21] LABS: Glucose,Whole Blood 114 mg/dL (75-99)
--- NOTE | 2017-06-20 17:23 | P.CONS ---
History of Present Illness - Reason for Consult Consult date: 06/20/17 - Chief Complaint Bleeding from right foot ulcer - History of Present Illness 41-year-old female who is known to local nephrology but is somewhat new to the area. She relates that she's had significant difficulties with her diabetes diabetic foot infection the past. She has a history of a left transmetatarsal amputation. The right foot has developed a new ulceration to the plantar surface at the first metatarsal head. She relates that she does not wear diabetic shoes. It's also related that she's had difficulty with compliance with her hemodialysis and missed the last 2 sessions. At her presentation she has evidence of some mild volume overload, she has significant hyperkalemia and also elevated phosphorus. She was treated emergently for her hyperkalemia has been seen by nephrology with plans for hemodialysis today. The patient has distinct neuropathy and does not have any pain from the site but does not feel very well since he ulceration has worsened. Because of her concerns for further foot loss she presented to the emergency center and has now been admitted. She is denying stomach and fevers, chills or rigors. She generally does not feel well due to her many medical troubles no difficulty with compliance. Review of Systems HEENT:Denies headache or acute visual change. Denies sinus or mouth discomforts. Denies neck stiffness or pain. Denies significant oral cavity pain. Denies difficulty on swallowing. Lungs: Denies significant shortness of breath, cough, sputum production, or hemoptysis. Cardiovascular: Denies significant shortness of breath, chest pain, chest wall pain, orthopnea, dyspnea on exertion, syncope Gastrointestinal:Denies nausea, vomiting, diarrhea, constipation, hematemesis, melena, hematochezia. No no significant change of bowel habit noticed. Musculoskeletal: denies significant myalgias or arthralgias. No new joint swelling. Denies new back pain. Skin: As per the HPI new ulcer to the right foot Neuro: Denies headache or visual change. Denies any new onset weakness or difficulty with ambulation. Denies falls or seizures. Psychiatric:Denies anxiety or depression. Endocrine: Chronic fatigue weight fluctuates and dialysis Past Medical History Past Medical History: CVA/TIA, Diabetes Mellitus, Dialysis, Hypertension, Renal Disease, Seizure Disorder, Thyroid Disorder Additional Past Medical History / Comment(s): rt great toe wound. diabetes mellitus type II-diet controlled, end-stage renal disease currently on hemodialysis for the past 3 years tue/ur/sat., normocytic anemia, CVA was comatose for 6 months/vented/peg tube-no residual, TIA, seizure disorder with last seizure 05/07/17, hypothyroidism but pt states now controlled, patient is legally blind with diabetic retinopathy and retinal hemorrhage-can see shadows with L eye, hx of head trauma and concussion, History of Any Multi-Drug Resistant Organisms: None Reported Past Surgical History: Section, Tubal Ligation Additional Past Surgical History / Comment(s): right arm shunt(ACTIVE), ( LT ARM SHUNT CLOGGED NON FUNCTIONING). toes amputated ON LT FOOT. PARTIAL left foot AMP, LT CATARACT REMOVED HAS LENS IMPLANT Past Anesthesia/Blood Transfusion Reactions: No Reported Reaction Past Psychological History: No Psychological Hx Reported Additional Psychological History / Comment(s): Pt is living with her sister Lien who is her caregiver. Pt is legally blind. Pt uses a walker to ambulate. He sister drives her to [employer]. Denies current alcohol use, recreational drug use or alcohol use. No experience. No international travel. No animal exposures Smoking Status: Former smoker Past Alcohol Use History: None Reported Past Drug Use History: None Reported - Past Family History Mother Family Medical History: CVA/TIA, Myocardial Infarction ([place]), Renal Disease Father Family Medical History: Congestive Heart Failure (CHF), CVA/TIA, Diabetes Mellitus, Hypertension, Vascular Disorder Additional Family Medical History / Comment(s): bka Medications and Allergies Home Medications and Allergies Comment(s): Current Medications Acetaminophen (Tylenol Tab) 650 mg PO Q6HR PRN PRN Reason: Mild Pain or Fever > 100.5 Hydrocodone Bitart/Acetaminophen ([place] 5-325) 1 each PO Q4HR PRN PRN Reason: Moderate Pain Last Admin: 06/20/17 13:29 Dose: 1 each Atorvastatin Calcium (Lipitor) 40 mg PO DAILY [facility] Last Admin: 06/20/17 08:27 Dose: 40 mg Calcium Carbonate/Glycine (Tums) 1,000 mg PO Q4HR PRN PRN Reason: Dyspepsia Collagenase (Santyl) 1 applic TOPICAL DAILY [facility] Divalproex Sodium (Depakote) 250 mg PO DAILY [facility] Last Admin: 06/20/17 09:00 Dose: 250 mg Heparin Sodium (Porcine) (Heparin) 5,000 unit SQ Q12HR [facility] Hydralazine HCl (Apresoline) 10 mg IVP Q4HR PRN PRN Reason: Blood Pressure - High Last Admin: 06/20/17 11:42 Dose: 10 mg Vancomycin HCl 1,750 mg/ (Sodium Chloride) 250 mls @ 125 mls/hr IVPB ONCE ONE Stop: 06/20/17 19:59 Insulin Aspart (Novolog) 0 unit SQ ACHS [facility] PRN Reason: Protocol Last Admin: 06/20/17 12:47 Dose: Not Given Lacosamide (Vimpat) 50 mg PO BID [facility] Last Admin: 06/20/17 08:32 Dose: 50 mg Lorazepam (Ativan) 0.5 mg PO Q6HR PRN PRN Reason: Anxiety Melatonin (Melatonin) 3 mg PO HS PRN PRN Reason: Insomnia Metoprolol Succinate (Toprol Xl) 25 mg PO DAILY [facility] Last Admin: 06/20/17 09:00 Dose: 25 mg Miscellaneous Information (Pharmacy To Dose Iv Vancomycin) 1 each MISCELLANE DIRECTED PRN PRN Reason: Per Protocol Naloxone HCl (Narcan) 0.2 mg IV Q2M PRN PRN Reason: Opioid Reversal Nifedipine (Procardia Xl) 90 mg PO DAILY [facility] Last Admin: 06/20/17 08:27 Dose: 90 mg Ondansetron HCl (Zofran) 4 mg IVP Q8HR PRN PRN Reason: Nausea And Vomiting Pantoprazole Sodium (Protonix) 40 mg PO AC-BRKFST [facility] Last Admin: 06/20/17 06:19 Dose: 40 mg Sevelamer Carbonate (Renvela) 800 mg PO TID-W/MEALS [facility] Last Admin: 06/20/17 12:48 Dose: 800 mg Valproic Acid (Depakene Syrup) 500 mg PO BID@0600,1800 [facility] Last Admin: 06/20/17 06:19 Dose: 500 mg Home Medications Medication Instructions Recorded Confirmed Type Atorvastatin [Lipitor] 40 mg PO DAILY 09/03/16 06/19/17 History NIFEdipine [NIFEdipine ER] 90 mg PO DAILY 09/03/16 06/19/17 History Valproic Acid 500 mg PO Q12H 09/03/16 06/19/17 History Pantoprazole [Protonix] 40 mg PO AC-BRKFST #30 tab 09/05/16 06/19/17 Rx Albuterol Inhaler [Ventolin Hfa 1 - 2 puff INHALATION RT-QID PRN 05/07/17 History Inhaler] Metoprolol Succinate (ER) [Toprol 25 mg PO DAILY 05/07/17 06/19/17 History XL] Divalproex [Depakote] 250 mg PO DAILY 06/09/17 06/19/17 History Lacosamide [Vimpat] 50 mg PO BID #60 tablet 06/12/17 06/19/17 Rx Allergies Allergy/AdvReac Type Severity Reaction Status Date / Time No Known Allergies Allergy Verified 06/19/17 16:05 Physical Exam Vitals: Vital Signs Temp Pulse Pulse Resp BP BP Pulse Ox 06/20/17 15:40 97.0 F L 85 18 169/75 100 06/20/17 12:59 176/80 06/20/17 11:35 97.6 F 75 18 221/92 100 06/20/17 08:20 97.6 F 83 18 218/95 100 06/20/17 03:43 97.4 F L 65 16 167/79 97 06/19/17 23:30 98.6 F 87 18 138/80 97 06/19/17 21:49 78 18 06/19/17 20:01 80 18 173/79 98 06/19/17 19:17 77 18 172/77 100 06/19/17 17:53 74 18 186/86 100 Intake and Output 06/20/17 06/20/17 06/20/17 06:59 14:59 22:59 Intake Total 250 Balance 250 Intake: Oral 250 Other: Voiding Method Bedside Commode # Voids 1 Weight 83.8 kg 83.8 kg 41-year-old woman who looks much older than her stated age. She is not in significant pain at this time. HEENT: Anicteric conjunctiva are pink and moist nasal mucosa grossly intact without significant lesions, there is no thrush. She is legally blind. Neck: The neck is supple without significant lymphadenopathy or thyromegaly. Lungs: Good bilateral air entry without significant crackles or wheezing. There is no significant bronchial sounds. There is no egophony or dullness. Heart: Regular rate and rhythm with an audible S1-S2, no S3 loud S4. The hum from the fistula is easily heard but no click or rub is noted Abdomen: Obese, Positive bowel sounds soft and nontender without palpable masses or organomegaly. There was no guarding or rebound. Extremities: Nonfunctional fistula left arm is noted. Fistula right arm has an easily palpated thrill is positive. She is only minimal swelling to the upper extremities. Blood sugars have chronic swelling. She is evidence of the transmetatarsal amputation left foot. Right foot shows evidence of the plantar ulcer great toe measuring 1 x 1 x 0.2 cm. Neuro: Awake alert oriented to person place and time. She has legal blindness and has no significant sensation over either foot. Results CBC & Chem 7: 06/19/17 17:00 06/20/17 09:28 Labs: Abnormal Lab Results - Last 24 Hours (Table) 06/19/17 06/19/17 06/19/17 Range/Units 17:00 17:00 17:47 RBC 3.43 L (3.80-5.40) m/uL Hgb 10.4 L (11.4-16.0) gm/dL Hct 31.9 L (34.0-46.0) % Potassium 6.4 H* (3.5-5.1) mmol/L Carbon Dioxide 17 L (22-30) mmol/L BUN 91 H* (7-17) mg/dL Creatinine 10.90 H* (0.52-1.04) mg/dL Glucose 103 H (74-99) mg/dL POC Glucose (mg/dL) (75-99) mg/dL Phosphorus 6.9 H (2.5-4.5) mg/dL AST 9 L (14-36) U/L ALT 8 L (9-52) U/L Urine Protein 2+ H (Negative) Urine Glucose (UA) 2+ H (Negative) Urine Blood Moderate H (Negative) Urine RBC 52 H (0-5) /hpf Urine WBC 6 H (0-5) /hpf Ur Squamous Epith Cells 5 H (0-4) /hpf Urine Bacteria Rare H (None) /hpf 06/19/17 06/20/17 Range/Units 19:58 09:28 RBC (3.80-5.40) m/uL Hgb (11.4-16.0) gm/dL Hct (34.0-46.0) % Potassium 5.8 H (3.5-5.1) mmol/L Carbon Dioxide (22-30) mmol/L BUN (7-17) mg/dL Creatinine (0.52-1.04) mg/dL Glucose (74-99) mg/dL POC Glucose (mg/dL) 108 H (75-99) mg/dL Phosphorus 6.9 H (2.5-4.5) mg/dL AST (14-36) U/L ALT (9-52) U/L Urine Protein (Negative) Urine Glucose (UA) (Negative) Urine Blood (Negative) Urine RBC (0-5) /hpf Urine WBC (0-5) /hpf Ur Squamous Epith Cells (0-4) /hpf Urine Bacteria (None) /hpf Microbiology - Last 24 Hours (Table) 06/20/17 10:27 Wound Culture - Preliminary Foot - Right 06/19/17 17:47 Gram Stain - Preliminary Toe - Right First Wound Culture - Preliminary Laboratory Results WBC 7.0 k/uL (3.8-10.6) 06/19/17 17:00 RBC 3.43 m/uL (3.80-5.40) L 06/19/17 17:00 Hgb 10.4 gm/dL (11.4-16.0) L 06/19/17 17:00 Hct 31.9 % (34.0-46.0) L 06/19/17 17:00 MCV 92.8 fL (80.0-100.0) 06/19/17 17:00 MCH 30.2 pg (25.0-35.0) 06/19/17 17:00 MCHC 32.5 g/dL (31.0-37.0) 06/19/17 17:00 RDW 13.1 % (11.5-15.5) 06/19/17 17:00 Plt Count 205 k/uL (150-450) 06/19/17 17:00 Neutrophils % 66 % 06/19/17 17:00 Lymphocytes % 25 % 06/19/17 17:00 Monocytes % 6 % 06/19/17 17:00 Eosinophils % 1 % 06/19/17 17:00 Basophils % 1 % 06/19/17 17:00 Neutrophils # 4.6 k/uL (1.3-7.7) 06/19/17 17:00 Lymphocytes # 1.8 k/uL (1.0-4.8) 06/19/17 17:00 Monocytes # 0.4 k/uL (0-1.0) 06/19/17 17:00 Eosinophils # 0.1 k/uL (0-0.7) 06/19/17 17:00 Basophils # 0.0 k/uL (0-0.2) 06/19/17 17:00 Sodium 137 mmol/L (137-145) 06/19/17 17:00 Potassium 5.8 mmol/L (3.5-5.1) H 06/20/17 09:28 Chloride 102 mmol/L (98-107) 06/19/17 17:00 Carbon Dioxide 17 mmol/L (22-30) L 06/19/17 17:00 Anion Gap 18 mmol/L 06/19/17 17:00 BUN 91 mg/dL (7-17) H* 06/19/17 17:00 Creatinine 10.90 mg/dL (0.52-1.04) H* 06/19/17 17:00 Est GFR (CKD-EPI)AfAm 4 (>60 ml/min/1.73 sqM) 06/19/17 17:00 Est GFR (CKD-EPI)NonAf 4 (>60 ml/min/1.73 sqM) 06/19/17 17:00 Glucose 103 mg/dL (74-99) H 06/19/17 17:00 POC Glucose (mg/dL) 84 mg/dL (75-99) 06/20/17 12:00 POC Glu Payroll Examiner ID Ruthann Liang 06/20/17 12:[address] Glu mg/dL 85 06/19/17 17:00 Hemoglobin A1c 4.6 % (4.0-6.0) 06/19/17 17:00 Calcium 9.8 mg/dL (8.4-10.2) 06/19/17 17:00 Phosphorus 6.9 mg/dL (2.5-4.5) H 06/20/17 09:28 Magnesium 2.2 mg/dL (1.6-2.3) 06/19/17 17:00 Total Bilirubin 0.3 mg/dL (0.2-1.3) 06/19/17 17:00 AST 9 U/L (14-36) L 06/19/17 17:00 ALT 8 U/L (9-52) L 06/19/17 17:00 Alkaline Phosphatase 69 U/L (38-126) 06/19/17 17:00 C-Reactive Protein <5.0 mg/L (<10.0) 06/19/17 17:00 Total Protein 7.0 g/dL (6.3-8.2) 06/19/17 17:00 Albumin 4.0 g/dL (3.5-5.0) 06/19/17 17:00 Urine Color Light Yellow 06/19/17 17:47 Urine Appearance Clear (Clear) 06/19/17 17:47 Urine pH 8.0 (5.0-8.0) 06/19/17 17:47 Ur Specific [place] 1.008 (1.001-1.035) 06/19/17 17:47 Urine Protein 2+ (Negative) H 06/19/17 17:47 Urine Glucose (UA) 2+ (Negative) H 06/19/17 17:47 Urine Ketones Negative (Negative) 06/19/17 17:47 Urine Blood Moderate (Negative) H 06/19/17 17:47 Urine Nitrite Negative (Negative) 06/19/17 17:47 Urine Bilirubin Negative (Negative) 06/19/17 17:47 Urine Urobilinogen <2.0 mg/dL (<2.0) 06/19/17 17:47 Ur Leukocyte Esterase Negative (Negative) 06/19/17 17:47 Urine RBC 52 /hpf (0-5) H 06/19/17 17:47 Urine WBC 6 /hpf (0-5) H 06/19/17 17:47 Ur Squamous Epith Cells 5 /hpf (0-4) H 06/19/17 17:47 Urine Bacteria Rare /hpf (None) H 06/19/17 17:47 Microbiology 06/20/17 10:27 Foot - Right Wound Culture - Preliminary 06/19/17 17:47 Toe - Right First Gram Stain - Preliminary 06/19/17 17:47 Toe - Right First Wound Culture - Preliminary Assessment and Plan (1) History of noncompliance with medical treatment Current Visit: Yes Status: Acute Code(s): Z91.19 - PATIENT'S NONCOMPLIANCE W OTH MEDICAL TREATMENT AND REGIMEN SNOMED Code(s): 4717607 (2) Hyperkalemia Current Visit: Yes Status: Acute Code(s): E87.5 - HYPERKALEMIA SNOMED Code (s): 13304358 (3) Diabetic ulcer of foot associated with type 2 diabetes mellitus, with necrosis of bone Narrative/Plan: 41-year-old female presents to Hospital after having missed dialysis for 2 sessions feeling quite poorly and having worsening ulceration to her right foot. Patient has a history of a left transmetatarsal amputation and is quite concerned because his an ulceration certainly bleed on the plantar surface of the right foot. The patient has been seen by vascular surgery debridement is been performed. Bone scan is requested. Patient laboratories requested. Patient relates that her tetanus is up-to-date. Ensure she has a multivitamin improvement. Adequate Protein intake per the dietary staff. Local wound care with the medical honey product is requested as well as offloading. Vancomycin was started we'll add and Zosyn dose adjusted for her renal failure. Nephrology is following and she'll receive dialysis today to help her with her significant hyperkalemia and metabolic abnormalities and volume excess from missing dialysis. Current Visit: Yes Status: Acute Code(s): E11.621 - TYPE 2 DIABETES MELLITUS WITH FOOT ULCER; L97.504 - NON-PRS CHRONIC ULCER OTH PRT UNSP FOOT W NECROSIS OF BONE SNOMED Code(s): 2006692764215
[2017-06-20] MEDS ORDERED: VANCOMYCIN 1,750 MG in SODIUM CHLORIDE 0.9% 250 ML IVPB ONE (18:00)
[2017-06-20] MEDS ORDERED: GELATIN SPONGE,ABSORB (SMALL) 1 EACH SPONGE ONE (19:20)
[2017-06-20] MEDS: HEPARIN SODIUM,PORCINE 5,000 UNIT/ML 1 ML VIAL SQ SCH (20:00)
[2017-06-20] MEDS: COLLAGENASE 250 UNIT/GM OINTMENT 30 GM TUBE TOPICAL SCH (20:00)
[2017-06-20] MEDS: PIPERACILLIN-TAZOBACTAM 3.375 GM in DEXTROSE/WATER 1 50ML.BAG IVPB SCH (20:03)
[2017-06-20 21:21] LABS: Glucose,Whole Blood 169 mg/dL (75-99)
[2017-06-21] MEDS: VALPROIC ACID ORAL SOLN 250 MG/5 ML CUP PO SCH ×2 (06:02→17:17)
[2017-06-21 06:15] LABS: Glucose,Whole Blood 91 mg/dL (75-99)
[2017-06-21] MEDS: INSULIN ASPART 100 UNIT/ML 1 ML 10 ML VIAL SQ SCH ×4 (06:23→21:21)
[2017-06-21] MEDS: PANTOPRAZOLE 40 MG TABLET PO SCH (06:57)
[2017-06-21] MEDS: SEVELAMER 800 MG TAB PO SCH ×3 (06:57→17:15)
--- NOTE | 2017-06-21 09:57 | P.PN ---
Subjective Patient is seen in follow-up for end-stage renal disease. She is maintained on hemodialysis on a Thursday schedule via left upper extremity AV fistula. Patient presented with ulceration of her right foot. Cultures are positive for MRSA infection. She is maintained on antibiotics per infectious disease recommendations. Tolerated hemodialysis well yesterday. No active complaints at this time. Vital signs are stable. General: The patient appeared well nourished and normally developed. HEENT: Head exam is unremarkable. Neck is without jugular venous distension. LUNGS: Lungs are clear to auscultation and percussion. Breath sounds decreased. HEART: Rate and Rhythm are regular. First and second heart sounds normal. No murmurs, rubs or gallops. ABDOMEN: Abdominal exam reveals normal bowel sounds. Non-tender and non- distended. No evidence of peritonitis. EXTREMITITES: No clubbing, cyanosis, or edema. No obvious drainage noted. Objective - Vital Signs Vital signs: Vital Signs Temp 97.5 F L 06/21/17 00:00 Pulse 85 06/21/17 04:00 Resp 18 06/21/17 04:00 BP 167/70 06/21/17 04:00 Pulse Ox 97 06/21/17 04:00 Intake & Output 06/20/17 06/21/17 06/21/17 18:59 06:59 18:59 Intake Total 710 Output Total 300 300 Balance 410 -300 Weight 83.8 kg 87.5 kg Intake: Oral 710 Output: Urine 300 300 Other: Voiding Method Bedside Commode # Voids 2 1 - Labs CBC & Chem 7: 06/19/17 17:00 06/20/17 09:28 Labs: Abnormal Lab Results - Last 24 Hours (Table) 06/20/17 06/20/17 06/20/17 Range/Units 09:28 16:54 21:12 Potassium 5.8 H (3.5-5.1) mmol/L POC Glucose (mg/dL) 114 H 169 H (75-99) mg/dL Phosphorus 6.9 H (2.5-4.5) mg/dL Microbiology - Last 24 Hours (Table) 06/20/17 10:27 Gram Stain - Preliminary Foot - Right Wound Culture - Preliminary 06/19/17 17:47 Gram Stain - Preliminary Toe - Right First Wound Culture - Preliminary Presumptive MRSA 06/19/17 17:00 Blood Culture - Preliminary Blood No Growth after 24 hours Assessment and Plan Plan: Assessment: #1. End-stage renal disease maintained on hemodialysis on a Thursday schedule via left upper extremity AV fistula. #2. Hyperkalemia secondary to chronic kidney disease and metabolic acidosis. #3. Metabolic acidosis secondary to chronic kidney disease. #4. Hypertension with chronic kidney disease. Uncontrolled. Partially related to missed dialysis. #5. Right foot ulcer maintained on antibiotics. #6. Diabetes mellitus. Plan: Hemodialysis Thursday with goal 2-1/2 L ultrafiltration. Maintain Renvela 3 times daily with meals. Antibiotics per infectious disease recommendations. Maintain home antihypertensives. Continue hydralazine 10 mg IV every 4 hours as needed for systolic blood pressure greater than 160. Repeat electrolytes in the morning. Monitor vancomycin levels - target level of 15.
[2017-06-21] MEDS: LACOSAMIDE 50 MG TABLET PO SCH ×2 (10:02→20:51)
[2017-06-21] MEDS: ATORVASTATIN 40 MG TAB PO SCH (10:02)
[2017-06-21] MEDS: DIVALPROEX 250 MG TABLET.DR PO SCH (10:02)
[2017-06-21] MEDS: HEPARIN SODIUM,PORCINE 5,000 UNIT/ML 1 ML VIAL SQ SCH ×2 (10:02→20:46)
[2017-06-21] MEDS: FOLIC ACID-VIT B COMPLEX-VIT C 1 CAP PO SCH (10:02)
[2017-06-21] MEDS: METOPROLOL SUCCINATE (ER) 25 MG TAB.ER.24H PO SCH (10:02)
[2017-06-21] MEDS: NIFEdipine XL 90 MG TAB.ER.24 PO SCH (10:02)
[2017-06-21] MEDS: PIPERACILLIN-TAZOBACTAM 3.375 GM in DEXTROSE/WATER 1 50ML.BAG IVPB SCH ×2 (10:16→20:50)
[2017-06-21] MEDS: HYDROcodone/APAP 5-325MG 1 EACH TAB PO PRN ×3 (10:26→20:50)
[2017-06-21 12:06] LABS: Glucose,Whole Blood 108 mg/dL (75-99)
--- NOTE | 2017-06-21 12:31 | PN ---
PROGRESS NOTE This is a 41-year-old female patient has history of diabetes, chronic renal failure on hemodialysis. Patient came with a callus infected right foot big toe. For that, patient had wound debridement done yesterday. We put on Santyl cream and the patient is scheduled to have a bone scan and IV antibiotic. Continue with local wound care. Patient to go home. We will follow in the office. The patient will be eventually seen by me in the wound clinic. MARLIN / SACHI: [id number] /
--- NOTE | 2017-06-21 15:47 | NM ---
EXAMINATION TYPE: NM bone 3 phase DATE OF EXAM: 06/21/2017 COMPARISON: NONE HISTORY: Open sore, great toe, right foot Triple phase bone scintigraphy was performed following the injection of25.1 mCi Tc 99m MDP. Immediat e images and 5 hours post injection images acquired. FINDINGS: ,There is mild increased flow to the right foot. Pool images demonstrate increased activity within the great toe. Delayed static images show increased activity about both ankles and also in th e distal phalanx of the great toe and the first MTP joint of the right great toe. IMPRESSION: I COULD NOT EXCLUDE OSTEOMYELITIS INVOLVING THE DISTAL PHALANX OF THE GREAT TOE.
[2017-06-21 17:24] LABS: Glucose,Whole Blood 130 mg/dL (75-99)
--- NOTE | 2017-06-21 20:39 | PN ---
PROGRESS NOTE DATE OF SERVICE: June 21, 2017. PRESENTING COMPLAINT: Infected right big toe. INTERVAL HISTORY: This patient on hemodialysis, presented with infection of the right big toe big toe status post callus debridement by Dr. Coates. Pain is controlled. Tolerating a diet. Did have hemodialysis yesterday. Comfortable. REVIEW OF SYSTEMS: Done for constitutional, cardiovascular, GI, pulmonary and relevant findings as above. CURRENT MEDICATIONS: Reviewed: IV vancomycin and Zosyn. PHYSICAL EXAMINATION: Afebrile. Pulse 75, respiration 18, blood pressure 116/74, pulse ox 100% on room air. General appearance: Sitting up in bed comfortable. Eyes pupils equal. Conjunctivae normal, decreased vision. HEENT external appearance of nose, ears normal. Oral cavity normal. Neck JVD not raised. Mass not palpable. Respiratory lungs are clear. Cardiovascular: 1st and 2nd sounds normal. No edema. ABDOMEN: Soft, nontender. Liver and spleen not palpable. Psychiatry: Alert and oriented times three. Mood and affect normal. Extremities transmetatarsal amputation of the left foot and wound on the plantar aspect of the right big toe. INVESTIGATION: Bone scan is unequivocal about osteomyelitis. Accu-Cheks noted. Potassium 5.8, phosphorus 6.9. ASSESSMENT: 1. Right big toe ulcer in a diabetic on the plantar aspect, status post debridement by Dr. Coates, osteomyelitis unequivocal possibly less likely. 2. End-stage kidney disease on hemodialysis Thursday, , and Thursday. Had hemodialysis yesterday. 3. 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 4. Tonic clonic seizure disorder. 5. Diabetic retinopathy with poor eyesight secondary to diabetes. 6. Essential hypertension, uncontrolled with urgency. 7. Hyperkalemia from end-stage kidney disease. PLAN: We will await input from Dr. Salgado to see if he considers this osteomyelitis, probably less likely. The patient is already on Renvela. We will look at the patient's blood pressure medication. Will actually DC the Toprol XL and increase Lopressor to 25 twice a day and add Prilosec 2 mg twice a day. MMODL / IJN: [id number] /
[2017-06-21] MEDS: COLLAGENASE 250 UNIT/GM OINTMENT 30 GM TUBE TOPICAL SCH ×2 (20:45→22:07)
[2017-06-21] MEDS: METOPROLOL TARTRATE 25 MG TAB PO SCH (20:52)
[2017-06-21] MEDS: PRAZOSIN 1 MG CAP PO SCH (20:52)
[2017-06-21 21:16] LABS: Glucose,Whole Blood 129 mg/dL (75-99)
[2017-06-22] MEDS: HYDROcodone/APAP 5-325MG 1 EACH TAB PO PRN ×4 (04:23→17:54)
[2017-06-22] MEDS: SEVELAMER 800 MG TAB PO SCH ×3 (06:00→17:51)
[2017-06-22] MEDS: PANTOPRAZOLE 40 MG TABLET PO SCH (06:00)
[2017-06-22] MEDS: VALPROIC ACID ORAL SOLN 250 MG/5 ML CUP PO SCH ×2 (06:00→17:51)
[2017-06-22 06:25] LABS: Glucose,Whole Blood 102 mg/dL (75-99)
[2017-06-22] MEDS: INSULIN ASPART 100 UNIT/ML 1 ML 10 ML VIAL SQ SCH ×4 (06:31→21:32)
[2017-06-22 07:02] LABS: Calcium 9.1 mg/dL (8.4-10.2); Potassium 4.9 mmol/L (3.5-5.1)
[2017-06-22 07:07] LABS: Vancomycin,Random 18.6 ug/mL
[2017-06-22] MEDS: HEPARIN SODIUM,PORCINE 5,000 UNIT/ML 1 ML VIAL SQ SCH ×2 (08:12→20:49)
[2017-06-22] MEDS: DIVALPROEX 250 MG TABLET.DR PO SCH (08:12)
[2017-06-22] MEDS: FOLIC ACID-VIT B COMPLEX-VIT C 1 CAP PO SCH (08:12)
[2017-06-22] MEDS: NIFEdipine XL 90 MG TAB.ER.24 PO SCH (08:13)
[2017-06-22] MEDS: METOPROLOL TARTRATE 25 MG TAB PO SCH ×2 (08:13→20:48)
[2017-06-22] MEDS: PRAZOSIN 1 MG CAP PO SCH ×2 (08:13→20:48)
--- NOTE | 2017-06-22 09:16 | P.PN ---
Subjective Patient is seen in follow-up for end-stage renal disease. She is maintained on hemodialysis on a Thursday schedule via left upper extremity AV fistula. Patient presented with ulceration of her right foot. Cultures are positive for MRSA infection. She is maintained on antibiotics per infectious disease recommendations. No active complaints at this time. Vital signs are stable. General: The patient appeared well nourished and normally developed. HEENT: Head exam is unremarkable. Neck is without jugular venous distension. LUNGS: Lungs are clear to auscultation and percussion. Breath sounds decreased. HEART: Rate and Rhythm are regular. First and second heart sounds normal. No murmurs, rubs or gallops. ABDOMEN: Abdominal exam reveals normal bowel sounds. Non-tender and non- distended. No evidence of peritonitis. EXTREMITITES: No clubbing, cyanosis, or edema. No obvious drainage noted. Objective - Vital Signs Vital signs: Vital Signs Temp 97 F L 06/22/17 08:00 Pulse 63 06/22/17 08:00 Resp 16 06/22/17 08:00 BP 131/63 06/22/17 08:00 Pulse Ox 100 06/22/17 08:00 Intake & Output 06/21/17 06/22/17 06/22/17 18:59 06:59 18:59 Intake Total 100 Balance 100 Weight 81.9 kg Intake: Intake, IV Titration 50 Amount Piperacillin-Tazobactam 3 50 .375 gm In Dextrose/Water 1 50ml.bag @ 12.5 mls/hr IVPB Q12HR [facility] Rx#: [id number] Oral 50 Other: Voiding Method Bedside Commode Bedside Commode # Voids 1 - Labs CBC & Chem 7: 06/19/17 17:00 06/22/17 05:43 Labs: Abnormal Lab Results - Last 24 Hours (Table) 06/21/17 06/21/17 06/21/17 Range/Units 11:54 16:57 21:14 Sodium (137-145) mmol/L Chloride (98-107) mmol/L BUN (7-17) mg/dL Creatinine (0.52-1.04) mg/dL POC Glucose (mg/dL) 108 H 130 H 129 H (75-99) mg/dL 06/22/17 06/22/17 Range/Units 05:43 06:23 Sodium 134 L (137-145) mmol/L Chloride 97 L (98-107) mmol/L BUN 65 H (7-17) mg/dL Creatinine 9.00 H* (0.52-1.04) mg/dL POC Glucose (mg/dL) 102 H (75-99) mg/dL Microbiology - Last 24 Hours (Table) 06/19/17 17:47 Gram Stain - Final Toe - Right First Wound Culture - Final Methicillin resist S. aureus 06/19/17 17:00 Blood Culture - Preliminary Blood No Growth after 48 hours 06/20/17 10:27 Gram Stain - Preliminary Foot - Right Wound Culture - Preliminary Assessment and Plan Plan: Assessment: #1. End-stage renal disease maintained on hemodialysis on a Thursday schedule via left upper extremity AV fistula. #2. Hyperkalemia secondary to chronic kidney disease and metabolic acidosis. Improved post HD. #3. Metabolic acidosis secondary to chronic kidney disease. #4. Hypertension with chronic kidney disease, partially related to missed dialysis. Now controlled. #5. Right foot ulcer maintained on antibiotics. #6. Diabetes mellitus. Plan: Hemodialysis today for 2 hours as she missed a treatment last week. Another treatment tomorrow per her outpatient schedule. Maintain Renvela 3 times daily with meals. Antibiotics per infectious disease recommendations. Maintain home antihypertensives. Continue hydralazine 10 mg IV every 4 hours as needed for systolic blood pressure greater than 160. Repeat electrolytes in the morning. Monitor vancomycin levels - target level of 15.
[2017-06-22] MEDS: LACOSAMIDE 50 MG TABLET PO SCH ×2 (11:31→20:48)
[2017-06-22] MEDS: PIPERACILLIN-TAZOBACTAM 3.375 GM in DEXTROSE/WATER 1 50ML.BAG IVPB SCH ×2 (11:31→20:49)
[2017-06-22] MEDS: ATORVASTATIN 40 MG TAB PO SCH (11:32)
[2017-06-22 11:41] LABS: Glucose,Whole Blood 119 mg/dL (75-99)
[2017-06-22] MEDS ORDERED: VANCOMYCIN 1,750 MG in SODIUM CHLORIDE 0.9% 250 ML IVPB ONE (12:00)
[2017-06-22 17:23] LABS: Glucose,Whole Blood 165 mg/dL (75-99)
[2017-06-22] MEDS: COLLAGENASE 250 UNIT/GM OINTMENT 30 GM TUBE TOPICAL SCH (20:48)
[2017-06-22 21:22] LABS: Glucose,Whole Blood 119 mg/dL (75-99)
--- NOTE | 2017-06-22 21:47 | P.PN ---
Subjective Progress Note Date: 06/22/17 Principal diagnosis: foot ulcer 41-year-old female who is known to local nephrology but is somewhat new to the area. She relates that she's had significant difficulties with her diabetes diabetic foot infection the past. She has a history of a left transmetatarsal amputation. The right foot has developed a new ulceration to the plantar surface at the first metatarsal head. She relates that she does not wear diabetic shoes. It's also related that she's had difficulty with compliance with her hemodialysis and missed the last 2 sessions. At her presentation she has evidence of some mild volume overload, she has significant hyperkalemia and also elevated phosphorus. She was treated emergently for her hyperkalemia has been seen by nephrology with plans for hemodialysis today. The patient has distinct neuropathy and does not have any pain from the site but does not feel very well since he ulceration has worsened. Because of her concerns for further foot loss she presented to the emergency center and has now been admitted. She is denying stomach and fevers, chills or rigors. She generally does not feel well due to her many medical troubles and difficulty with compliance. 06/22/2017 reveals the patient is to be feeling somewhat poorly. Feels better than admission. She's had hemodialysis and feels somewhat better but does feels weak after dialysis. Denies other acute new complaints. Objective - Vital Signs Vital signs: Vital Signs Temp 97.8 F 06/22/17 16:00 Pulse 68 06/22/17 16:00 Resp 16 06/22/17 16:00 BP 129/60 06/22/17 16:00 Pulse Ox 100 06/22/17 16:00 Intake & Output 06/22/17 06/22/17 06/23/17 06:59 18:59 06:59 Weight 81.9 kg Other: Voiding Method Bedside Commode Bedside Commode # Voids 1 1 # Bowel Movements 1 - Exam 41-year-old woman who looks much older than her stated age. She is not in significant pain at this time. HEENT: Anicteric conjunctiva are pink and moist nasal mucosa grossly intact without significant lesions, there is no thrush. She is legally blind. Neck: The neck is supple without significant lymphadenopathy or thyromegaly. Lungs: Good bilateral air entry without significant crackles or wheezing. There is no significant bronchial sounds. There is no egophony or dullness. Heart: Regular rate and rhythm with an audible S1-S2, no S3 loud S4. The hum from the fistula is easily heard but no click or rub is noted Abdomen: Obese, Positive bowel sounds soft and nontender without palpable masses or organomegaly. There was no guarding or rebound. Extremities: Nonfunctional fistula left arm is noted. Fistula right arm has an easily palpated thrill is positive. She is only minimal swelling to the upper extremities. Blood sugars have chronic swelling. She has evidence of the transmetatarsal amputation left foot. Right foot shows evidence of the plantar ulcer great toe measuring 1 x 1 x 0.2 cm. Neuro: Awake alert oriented to person place and time. She has legal blindness and has no significant sensation over either foot. - Labs CBC & Chem 7: 06/19/17 17:00 06/22/17 05:43 Labs: Abnormal Lab Results - Last 24 Hours (Table) 06/22/17 06/22/17 06/22/17 Range/Units 05:43 06:23 11:30 Sodium 134 L (137-145) mmol/L Chloride 97 L (98-107) mmol/L BUN 65 H (7-17) mg/dL Creatinine 9.00 H* (0.52-1.04) mg/dL POC Glucose (mg/dL) 102 H 119 H (75-99) mg/dL 06/22/17 06/22/17 Range/Units 17:01 21:20 Sodium (137-145) mmol/L Chloride (98-107) mmol/L BUN (7-17) mg/dL Creatinine (0.52-1.04) mg/dL POC Glucose (mg/dL) 165 H 119 H (75-99) mg/dL Microbiology - Last 24 Hours (Table) 06/19/17 17:00 Blood Culture - Preliminary Blood No Growth after 72 hours 06/20/17 10:27 Gram Stain - Final Foot - Right Wound Culture - Final Methicillin resist S. aureus 06/19/17 17:47 Gram Stain - Final Toe - Right First Wound Culture - Final Methicillin resist S. aureus Laboratory Results WBC 7.0 k/uL (3.8-10.6) 06/19/17 17:00 RBC 3.43 m/uL (3.80-5.40) L 06/19/17 17:00 Hgb 10.4 gm/dL (11.4-16.0) L 06/19/17 17:00 Hct 31.9 % (34.0-46.0) L 06/19/17 17:00 MCV 92.8 fL (80.0-100.0) 06/19/17 17:00 MCH 30.2 pg (25.0-35.0) 06/19/17 17:00 MCHC 32.5 g/dL (31.0-37.0) 06/19/17 17:00 RDW 13.1 % (11.5-15.5) 06/19/17 17:00 Plt Count 205 k/uL (150-450) 06/19/17 17:00 Neutrophils % 66 % 06/19/17 17:00 Lymphocytes % 25 % 06/19/17 17:00 Monocytes % 6 % 06/19/17 17:00 Eosinophils % 1 % 06/19/17 17:00 Basophils % 1 % 06/19/17 17:00 Neutrophils # 4.6 k/uL (1.3-7.7) 06/19/17 17:00 Lymphocytes # 1.8 k/uL (1.0-4.8) 06/19/17 17:00 Monocytes # 0.4 k/uL (0-1.0) 06/19/17 17:00 Eosinophils # 0.1 k/uL (0-0.7) 06/19/17 17:00 Basophils # 0.0 k/uL (0-0.2) 06/19/17 17:00 Sodium 134 mmol/L (137-145) L 06/22/17 05:43 Potassium 4.9 mmol/L (3.5-5.1) 06/22/17 05:43 Chloride 97 mmol/L (98-107) L 06/22/17 05:43 Carbon Dioxide 24 mmol/L (22-30) 06/22/17 05:43 Anion Gap 13 mmol/L 06/22/17 05:43 BUN 65 mg/dL (7-17) H 06/22/17 05:43 Creatinine 9.00 mg/dL (0.52-1.04) H* 06/22/17 05:43 Est GFR (CKD-EPI)AfAm 6 (>60 ml/min/1.73 sqM) 06/22/17 05:43 Est GFR (CKD-EPI)NonAf 5 (>60 ml/min/1.73 sqM) 06/22/17 05:43 Glucose 87 mg/dL (74-99) 06/22/17 05:43 POC Glucose (mg/dL) 119 mg/dL (75-99) H 06/22/17 21:20 POC Glu [employer] Guru Ortiz 06/22/17 21:[address] Glu mg/dL 85 06/19/17 17:00 Hemoglobin A1c 4.6 % (4.0-6.0) 06/19/17 17:00 Calcium 9.1 mg/dL (8.4-10.2) 06/22/17 05:43 Phosphorus 6.9 mg/dL (2.5-4.5) H 06/20/17 09:28 Magnesium 2.2 mg/dL (1.6-2.3) 06/19/17 17:00 Total Bilirubin 0.3 mg/dL (0.2-1.3) 06/19/17 17:00 AST 9 U/L (14-36) L 06/19/17 17:00 ALT 8 U/L (9-52) L 06/19/17 17:00 Alkaline Phosphatase 69 U/L (38-126) 06/19/17 17:00 C-Reactive Protein <5.0 mg/L (<10.0) 06/19/17 17:00 Total Protein 7.0 g/dL (6.3-8.2) 06/19/17 17:00 Albumin 4.0 g/dL (3.5-5.0) 06/19/17 17:00 Urine Color Light Yellow 06/19/17 17:47 Urine Appearance Clear (Clear) 06/19/17 17:47 Urine pH 8.0 (5.0-8.0) 06/19/17 17:47 Ur Specific [place] 1.008 (1.001-1.035) 06/19/17 17:47 Urine Protein 2+ (Negative) H 06/19/17 17:47 Urine Glucose (UA) 2+ (Negative) H 06/19/17 17:47 Urine Ketones Negative (Negative) 06/19/17 17:47 Urine Blood Moderate (Negative) H 06/19/17 17:47 Urine Nitrite Negative (Negative) 06/19/17 17:47 Urine Bilirubin Negative (Negative) 06/19/17 17:47 Urine Urobilinogen <2.0 mg/dL (<2.0) 06/19/17 17:47 Ur Leukocyte Esterase Negative (Negative) 06/19/17 17:47 Urine RBC 52 /hpf (0-5) H 06/19/17 17:47 Urine WBC 6 /hpf (0-5) H 06/19/17 17:47 Ur Squamous Epith Cells 5 /hpf (0-4) H 06/19/17 17:47 Urine Bacteria Rare /hpf (None) H 06/19/17 17:47 Random Vancomycin 18.6 ug/mL 06/22/17 05:43 Microbiology 06/19/17 17:00 Blood Blood Culture - Preliminary No Growth after 72 hours 06/20/17 10:27 Foot - Right Gram Stain - Final 06/20/17 10:27 Foot - Right Wound Culture - Final Methicillin resist S. aureus 06/19/17 17:47 Toe - Right First Gram Stain - Final 06/19/17 17:47 Toe - Right First Wound Culture - Final Methicillin resist S. aureus Assessment and Plan (1) History of noncompliance with medical treatment Current Visit: Yes Status: Acute Code(s): Z91.19 - PATIENT'S NONCOMPLIANCE W OTH MEDICAL TREATMENT AND REGIMEN SNOMED Code(s): 9808092 (2) Hyperkalemia Current Visit: Yes Status: Acute Code(s): E87.5 - HYPERKALEMIA SNOMED Code (s): 16156321 (3) Diabetic ulcer of foot associated with type 2 diabetes mellitus, with necrosis of bone Narrative/Plan: 41-year-old female presents to Hospital after having missed dialysis for 2 sessions feeling quite poorly and having worsening ulceration to her right foot. Patient has a history of a left transmetatarsal amputation and is quite concerned because his an ulceration certainly bleed on the plantar surface of the right foot. The patient has been seen by vascular surgery debridement is been performed. Bone scan is requested. Patient laboratories requested. Patient relates that her tetanus is up-to-date. Ensure she has a multivitamin improvement. Adequate Protein intake per the dietary staff. Local wound care with the medical honey product is requested as well as offloading. Vancomycin was started we'll add and Zosyn dose adjusted for her renal failure. Nephrology is following and she'll receive dialysis today to help her with her significant hyperkalemia and metabolic abnormalities and volume excess from missing dialysis. 06/22/2017 reveals the patient to be comfortable today. She is doing well with current antibiotic therapy and local wound care with the medical honey product. With dialysis seems to be feeling somewhat better. Which is continues to feel weak and ill. Cultures are likely showing evidence of MRSA and vancomycin will be continued. Cultures will determine if the Zosyn can be discontinued. Bone scan reveals evidence of osteomyelitis of the right great toe where there is an ulceration. Thus at this point in time would plan on an outpatient course of vancomycin therapy, we'll likely need to work with the dialysis center so that the antibiotic and be provided and they can administer it with her dialysis cycles. She is doing well with a local wound care with the medical honey and that will continue. Current Visit: Yes Status: Acute Code(s): E11.621 - TYPE 2 DIABETES MELLITUS WITH FOOT ULCER; L97.504 - NON-PRS CHRONIC ULCER OTH PRT UNSP FOOT W NECROSIS OF BONE SNOMED Code(s): 9024315676511
--- NOTE | 2017-06-22 22:17 | PN ---
PROGRESS NOTE DATE OF SERVICE: June 22, 2017. PRESENT COMPLAINT: Infected right big toe. INTERVAL HISTORY: The patient on hemodialysis. Presented with infection right big toe status post callus debridement by Dr. Coates. The patient is on antibiotics. Getting hemodialysis. Comfortable, tolerating a diet. REVIEW OF SYSTEMS: Done for constitutional, cardiovascular, GI, pulmonary, relevant findings as above. CURRENT MEDICATIONS: Reviewed that include IV Zosyn and vancomycin. PHYSICAL EXAMINATION: Temperature 97, pulse 63, respirations 18, blood pressure 130/63, pulse ox 100% on room air. General appearance: Sitting on bed, comfortable. Eyes pupils equal. Conjunctivae normal. Decreased vision. HEENT external appearance of nose and ears normal. Oral cavity normal. Neck JVD not raised. Mass not palpable. Respiratory effort normal. Lungs are clear. Cardiovascular 1st and 2nd sounds normal. No edema. ABDOMEN: Soft, nontender. Liver and spleen not palpable. Psychiatry: Alert and oriented times three. Extremities: Transmetatarsal amputation of the left foot and wound on the plantar aspect of the right big toe. INVESTIGATIONS: Bone scan equivocal. Potassium 4.9, BUN 65, creatinine 9.0. Accu-Cheks noted. ASSESSMENT: 1. Right big toe ulcer in a diabetic on the plantar aspect, status post debridement by Dr. Coates, osteomyelitis doubtful. Await input from Dr. Salgado. 2. End-stage kidney disease on hemodialysis Thursday, , and Thursday. 3. 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 4. Tonic clonic seizure disorder. 5. Diabetic retinopathy with poor eyesight secondary to diabetes. 6. Essential hypertension. 7. Hyperkalemia from end-stage kidney disease, improving. PLAN: Continue medication and treatment plan. Await input from Dr. Salgado to finalize the antibiotics and determine if this is actually osteomyelitis or no. MMODL / IJN: [id number] /
[2017-06-23 06:09] LABS: Glucose,Whole Blood 83 mg/dL (75-99)
[2017-06-23] MEDS: PANTOPRAZOLE 40 MG TABLET PO SCH (06:13)
[2017-06-23] MEDS: VALPROIC ACID ORAL SOLN 250 MG/5 ML CUP PO SCH ×2 (06:13→17:04)
[2017-06-23] MEDS: SEVELAMER 800 MG TAB PO SCH ×3 (06:13→17:04)
[2017-06-23 07:33] LABS: Calcium 9.1 mg/dL (8.4-10.2); Potassium 5.2 mmol/L (3.5-5.1)
[2017-06-23] MEDS: DIVALPROEX 250 MG TABLET.DR PO SCH (07:52)
[2017-06-23] MEDS: ATORVASTATIN 40 MG TAB PO SCH (07:52)
[2017-06-23] MEDS: INSULIN ASPART 100 UNIT/ML 1 ML 10 ML VIAL SQ SCH ×4 (07:52→20:49)
[2017-06-23] MEDS: PIPERACILLIN-TAZOBACTAM 3.375 GM in DEXTROSE/WATER 1 50ML.BAG IVPB SCH ×2 (07:52→22:05)
[2017-06-23] MEDS: HEPARIN SODIUM,PORCINE 5,000 UNIT/ML 1 ML VIAL SQ SCH ×2 (07:52→20:48)
[2017-06-23] MEDS: LACOSAMIDE 50 MG TABLET PO SCH ×3 (07:52→20:51)
[2017-06-23] MEDS: FOLIC ACID-VIT B COMPLEX-VIT C 1 CAP PO SCH (07:52)
[2017-06-23] MEDS: HYDROcodone/APAP 5-325MG 1 EACH TAB PO PRN ×2 (08:03→13:55)
--- NOTE | 2017-06-23 09:34 | P.PN ---
Subjective Patient is seen in follow-up for end-stage renal disease. She is maintained on hemodialysis on a Thursday schedule via left upper extremity AV fistula. Patient presented with ulceration of her right foot. Cultures are positive for MRSA infection. She is maintained on antibiotics per infectious disease recommendations. No active complaints at this time. Hemodynamically stable. Vital signs are stable. General: The patient appeared well nourished and normally developed. HEENT: Head exam is unremarkable. Neck is without jugular venous distension. LUNGS: Lungs are clear to auscultation and percussion. Breath sounds decreased. HEART: Rate and Rhythm are regular. First and second heart sounds normal. No murmurs, rubs or gallops. ABDOMEN: Abdominal exam reveals normal bowel sounds. Non-tender and non- distended. No evidence of peritonitis. EXTREMITITES: No clubbing, cyanosis, or edema. No obvious drainage noted. Objective - Vital Signs Vital signs: Vital Signs Temp 96.4 F L 06/23/17 08:00 Pulse 74 06/23/17 08:00 Resp 16 06/23/17 08:00 BP 151/67 06/23/17 08:00 Pulse Ox 100 06/23/17 08:00 Intake & Output 06/22/17 06/23/17 06/23/17 18:59 06:59 18:59 Intake Total 200 Output Total 700 Balance -500 Weight 82.9 kg Intake: Oral 200 Output: Urine 700 Other: Voiding Method Bedside Commode Bedside Commode Bedside Commode # Voids 1 # Bowel Movements 1 - Labs CBC & Chem 7: 06/19/17 17:00 06/23/17 05:59 Labs: Abnormal Lab Results - Last 24 Hours (Table) 06/22/17 06/22/17 06/22/17 Range/Units 11:30 17:01 21:20 Sodium (137-145) mmol/L Potassium (3.5-5.1) mmol/L Chloride (98-107) mmol/L BUN (7-17) mg/dL Creatinine (0.52-1.04) mg/dL Glucose (74-99) mg/dL POC Glucose (mg/dL) 119 H 165 H 119 H (75-99) mg/dL 06/23/17 Range/Units 05:59 Sodium 134 L (137-145) mmol/L Potassium 5.2 H (3.5-5.1) mmol/L Chloride 97 L (98-107) mmol/L BUN 77 H (7-17) mg/dL Creatinine 10.62 H* (0.52-1.04) mg/dL Glucose 73 L (74-99) mg/dL POC Glucose (mg/dL) (75-99) mg/dL Microbiology - Last 24 Hours (Table) 06/19/17 17:00 Blood Culture - Preliminary Blood No Growth after 72 hours 06/20/17 10:27 Gram Stain - Final Foot - Right Wound Culture - Final Methicillin resist S. aureus Assessment and Plan Plan: Assessment: #1. End-stage renal disease maintained on hemodialysis on a Thursday schedule via left upper extremity AV fistula. #2. Hyperkalemia secondary to chronic kidney disease and metabolic acidosis. Improved post HD. #3. Metabolic acidosis secondary to chronic kidney disease. #4. Hypertension with chronic kidney disease, partially related to missed dialysis. Now controlled. #5. Right foot ulcer maintained on antibiotics. #6. Diabetes mellitus. Plan: Currently seen while undergoing hemodialysis. Next treatment on . Maintain Renvela 3 times daily with meals. Antibiotics per infectious disease recommendations. Maintain home antihypertensives. Continue hydralazine 10 mg IV every 4 hours as needed for systolic blood pressure greater than 160. Repeat electrolytes in the morning. Monitor vancomycin levels - target level of 15.
[2017-06-23 11:40] LABS: Glucose,Whole Blood 93 mg/dL (75-99)
[2017-06-23 13:41] VITALS: BMI 28.6
[2017-06-23] MEDS: METOPROLOL TARTRATE 25 MG TAB PO SCH ×2 (13:55→20:50)
[2017-06-23] MEDS: NIFEdipine XL 90 MG TAB.ER.24 PO SCH (13:55)
[2017-06-23] MEDS: PRAZOSIN 1 MG CAP PO SCH ×2 (13:55→20:52)
[2017-06-23] MEDS: hydrALAZINE HCL 20 MG/ML 1 ML VIAL IVP PRN (16:42)
[2017-06-23 16:55] LABS: Glucose,Whole Blood 141 mg/dL (75-99)
[2017-06-23 20:43] LABS: Glucose,Whole Blood 129 mg/dL (75-99)
[2017-06-23] MEDS: COLLAGENASE 250 UNIT/GM OINTMENT 30 GM TUBE TOPICAL SCH (20:48)
--- NOTE | 2017-06-23 23:40 | P.PN ---
Subjective Progress Note Date: 06/23/17 Principal diagnosis: foot ulcer 41-year-old female who is known to local nephrology but is somewhat new to the area. She relates that she's had significant difficulties with her diabetes diabetic foot infection the past. She has a history of a left transmetatarsal amputation. The right foot has developed a new ulceration to the plantar surface at the first metatarsal head. She relates that she does not wear diabetic shoes. It's also related that she's had difficulty with compliance with her hemodialysis and missed the last 2 sessions. At her presentation she has evidence of some mild volume overload, she has significant hyperkalemia and also elevated phosphorus. She was treated emergently for her hyperkalemia has been seen by nephrology with plans for hemodialysis today. The patient has distinct neuropathy and does not have any pain from the site but does not feel very well since he ulceration has worsened. Because of her concerns for further foot loss she presented to the emergency center and has now been admitted. She is denying stomach and fevers, chills or rigors. She generally does not feel well due to her many medical troubles and difficulty with compliance. 06/22/2017 reveals the patient is to be feeling somewhat poorly. Feels better than admission. She's had hemodialysis and feels somewhat better but does feels weak after dialysis. Denies other acute new complaints. 06/23/2017 the patient still does not feel as well as her baseline but is improved from admission. Hemodialysis is been very helpful with her symptom complex. Dialysis is relates in no acute difficulties with the dialysis today. She's having no hypotension or other acute difficulties. Objective - Vital Signs Vital signs: Vital Signs Temp 96.4 F L 06/23/17 16:00 Pulse 76 06/23/17 18:03 Resp 16 06/23/17 18:03 BP 169/75 06/23/17 18:03 Pulse Ox 100 06/23/17 18:03 Intake & Output 06/23/17 06/23/17 06/24/17 06:59 18:59 06:59 Intake Total 200 702 Output Total 700 50 Balance -500 652 Weight 82.9 kg 82.9 kg Intake: Oral 200 702 Output: Urine 700 50 Other: Voiding Method Bedside Commode Bedside Commode - Exam 41-year-old woman who looks much older than her stated age. She is not in significant pain at this time. HEENT: Anicteric conjunctiva are pink and moist nasal mucosa grossly intact without significant lesions, there is no thrush. She is legally blind. Neck: The neck is supple without significant lymphadenopathy or thyromegaly. Lungs: Good bilateral air entry without significant crackles or wheezing. There is no significant bronchial sounds. There is no egophony or dullness. Heart: Regular rate and rhythm with an audible S1-S2, no S3 loud S4. The hum from the fistula is easily heard but no click or rub is noted Abdomen: Obese, Positive bowel sounds soft and nontender without palpable masses or organomegaly. There was no guarding or rebound. Extremities: Nonfunctional fistula left arm is noted. Fistula right arm has an easily palpated thrill is positive. She is only minimal swelling to the upper extremities. Blood sugars have chronic swelling. She has evidence of the transmetatarsal amputation left foot. Right foot shows evidence of the plantar ulcer great toe measuring 1 x 1 x 0.2 cm. Neuro: Awake alert oriented to person place and time. She has legal blindness and has no significant sensation over either foot. - Labs CBC & Chem 7: 06/19/17 17:00 06/23/17 05:59 Labs: Abnormal Lab Results - Last 24 Hours (Table) 06/23/17 06/23/17 06/23/17 Range/Units 05:59 16:30 20:42 Sodium 134 L (137-145) mmol/L Potassium 5.2 H (3.5-5.1) mmol/L Chloride 97 L (98-107) mmol/L BUN 77 H (7-17) mg/dL Creatinine 10.62 H* (0.52-1.04) mg/dL Glucose 73 L (74-99) mg/dL POC Glucose (mg/dL) 141 H 129 H (75-99) mg/dL Microbiology - Last 24 Hours (Table) 06/19/17 17:00 Blood Culture - Preliminary Blood No Growth after 96 hours Laboratory Results WBC 7.0 k/uL (3.8-10.6) 06/19/17 17:00 RBC 3.43 m/uL (3.80-5.40) L 06/19/17 17:00 Hgb 10.4 gm/dL (11.4-16.0) L 06/19/17 17:00 Hct 31.9 % (34.0-46.0) L 06/19/17 17:00 MCV 92.8 fL (80.0-100.0) 06/19/17 17:00 MCH 30.2 pg (25.0-35.0) 06/19/17 17:00 MCHC 32.5 g/dL (31.0-37.0) 06/19/17 17:00 RDW 13.1 % (11.5-15.5) 06/19/17 17:00 Plt Count 205 k/uL (150-450) 06/19/17 17:00 Neutrophils % 66 % 06/19/17 17:00 Lymphocytes % 25 % 06/19/17 17:00 Monocytes % 6 % 06/19/17 17:00 Eosinophils % 1 % 06/19/17 17:00 Basophils % 1 % 06/19/17 17:00 Neutrophils # 4.6 k/uL (1.3-7.7) 06/19/17 17:00 Lymphocytes # 1.8 k/uL (1.0-4.8) 06/19/17 17:00 Monocytes # 0.4 k/uL (0-1.0) 06/19/17 17:00 Eosinophils # 0.1 k/uL (0-0.7) 06/19/17 17:00 Basophils # 0.0 k/uL (0-0.2) 06/19/17 17:00 Sodium 134 mmol/L (137-145) L 06/23/17 05:59 Potassium 5.2 mmol/L (3.5-5.1) H 06/23/17 05:59 Chloride 97 mmol/L (98-107) L 06/23/17 05:59 Carbon Dioxide 22 mmol/L (22-30) 06/23/17 05:59 Anion Gap 15 mmol/L 06/23/17 05:59 BUN 77 mg/dL (7-17) H 06/23/17 05:59 Creatinine 10.62 mg/dL (0.52-1.04) H* 06/23/17 05:59 Est GFR (CKD-EPI)AfAm 5 (>60 ml/min/1.73 sqM) 06/23/17 05:59 Est GFR (CKD-EPI)NonAf 4 (>60 ml/min/1.73 sqM) 06/23/17 05:59 Glucose 73 mg/dL (74-99) L 06/23/17 05:59 POC Glucose (mg/dL) 129 mg/dL (75-99) H 06/23/17 20:42 POC Glu New Media Strategist ID Cathie Landeros 06/23/17 20:[address] Glu mg/dL 85 06/19/17 17:00 Hemoglobin A1c 4.6 % (4.0-6.0) 06/19/17 17:00 Calcium 9.1 mg/dL (8.4-10.2) 06/23/17 05:59 Phosphorus 6.9 mg/dL (2.5-4.5) H 06/20/17 09:28 Magnesium 2.2 mg/dL (1.6-2.3) 06/19/17 17:00 Total Bilirubin 0.3 mg/dL (0.2-1.3) 06/19/17 17:00 AST 9 U/L (14-36) L 06/19/17 17:00 ALT 8 U/L (9-52) L 06/19/17 17:00 Alkaline Phosphatase 69 U/L (38-126) 06/19/17 17:00 C-Reactive Protein <5.0 mg/L (<10.0) 06/19/17 17:00 Total Protein 7.0 g/dL (6.3-8.2) 06/19/17 17:00 Albumin 4.0 g/dL (3.5-5.0) 06/19/17 17:00 Urine Color Light Yellow 06/19/17 17:47 Urine Appearance Clear (Clear) 06/19/17 17:47 Urine pH 8.0 (5.0-8.0) 06/19/17 17:47 Ur Specific [place] 1.008 (1.001-1.035) 06/19/17 17:47 Urine Protein 2+ (Negative) H 06/19/17 17:47 Urine Glucose (UA) 2+ (Negative) H 06/19/17 17:47 Urine Ketones Negative (Negative) 06/19/17 17:47 Urine Blood Moderate (Negative) H 06/19/17 17:47 Urine Nitrite Negative (Negative) 06/19/17 17:47 Urine Bilirubin Negative (Negative) 06/19/17 17:47 Urine Urobilinogen <2.0 mg/dL (<2.0) 06/19/17 17:47 Ur Leukocyte Esterase Negative (Negative) 06/19/17 17:47 Urine RBC 52 /hpf (0-5) H 06/19/17 17:47 Urine WBC 6 /hpf (0-5) H 06/19/17 17:47 Ur Squamous Epith Cells 5 /hpf (0-4) H 06/19/17 17:47 Urine Bacteria Rare /hpf (None) H 06/19/17 17:47 Random Vancomycin 18.6 ug/mL 06/22/17 05:43 Microbiology 06/19/17 17:00 Blood Blood Culture - Preliminary No Growth after 96 hours 06/20/17 10:27 Foot - Right Gram Stain - Final 06/20/17 10:27 Foot - Right Wound Culture - Final Methicillin resist S. aureus 06/19/17 17:47 Toe - Right First Gram Stain - Final 06/19/17 17:47 Toe - Right First Wound Culture - Final Methicillin resist S. aureus Assessment and Plan (1) History of noncompliance with medical treatment Current Visit: Yes Status: Acute Code(s): Z91.19 - PATIENT'S NONCOMPLIANCE W OTH MEDICAL TREATMENT AND REGIMEN SNOMED Code(s): 1619192 (2) Hyperkalemia Current Visit: Yes Status: Acute Code(s): E87.5 - HYPERKALEMIA SNOMED Code (s): 64913847 (3) Diabetic ulcer of foot associated with type 2 diabetes mellitus, with necrosis of bone Narrative/Plan: 41-year-old female presents to Hospital after having missed dialysis for 2 sessions feeling quite poorly and having worsening ulceration to her right foot. Patient has a history of a left transmetatarsal amputation and is quite concerned because his an ulceration certainly bleed on the plantar surface of the right foot. The patient has been seen by vascular surgery debridement is been performed. Bone scan is requested. Patient laboratories requested. Patient relates that her tetanus is up-to-date. Ensure she has a multivitamin improvement. Adequate Protein intake per the dietary staff. Local wound care with the medical honey product is requested as well as offloading. Vancomycin was started we'll add and Zosyn dose adjusted for her renal failure. Nephrology is following and she'll receive dialysis today to help her with her significant hyperkalemia and metabolic abnormalities and volume excess from missing dialysis. 06/22/2017 reveals the patient to be comfortable today. She is doing well with current antibiotic therapy and local wound care with the medical honey product. With dialysis seems to be feeling somewhat better. Which is continues to feel weak and ill. Cultures are likely showing evidence of MRSA and vancomycin will be continued. Cultures will determine if the Zosyn can be discontinued. Bone scan reveals evidence of osteomyelitis of the right great toe where there is an ulceration. Thus at this point in time would plan on an outpatient course of vancomycin therapy, we'll likely need to work with the dialysis center so that the antibiotic and be provided and they can administer it with her dialysis cycles. She is doing well with a local wound care with the medical honey and that will continue. 06/23/2017 the patient is more comfortable today. Doing well with her current hemodialysis session. Is helping her feel less short of breath and have some improved energy. Ulceration to the foot is noted is being treated with medical honey dressing. She is tolerating this well. Bone scan reveals evidence of osteomyelitis. Prescription is given to the case maker to determine if antibiotic therapy can be dispensed the patient so the patient may then have it administered at the time of hemodialysis given her significant lack of IV access. Vancomycin therapy is required for treatment of the osteomyelitis which will salvage toe and likely salvage the foot and leg at this time. Offloading is required to have believe she which he does get around by wheelchair which offloads the foot. She can follow in the outpatient setting with weekly blood work to assess her response to antibiotic therapy and for Vanco levels per pharmacy to dose. Current Visit: Yes Status: Acute Code(s): E11.621 - TYPE 2 DIABETES MELLITUS WITH FOOT ULCER; L97.504 - NON-PRS CHRONIC ULCER OTH PRT UNSP FOOT W NECROSIS OF BONE SNOMED Code(s): 1340832620799
[2017-06-24 05:54] LABS: Glucose,Whole Blood 105 mg/dL (75-99)
[2017-06-24] MEDS: SEVELAMER 800 MG TAB PO SCH ×2 (06:23→12:20)
[2017-06-24] MEDS: VALPROIC ACID ORAL SOLN 250 MG/5 ML CUP PO SCH (06:23)
[2017-06-24] MEDS: INSULIN ASPART 100 UNIT/ML 1 ML 10 ML VIAL SQ SCH ×2 (06:23→12:20)
[2017-06-24] MEDS: PANTOPRAZOLE 40 MG TABLET PO SCH (06:24)
[2017-06-24 06:45] LABS: Calcium 9.5 mg/dL (8.4-10.2); Potassium 4.3 mmol/L (3.5-5.1)
[2017-06-24 06:50] LABS: Vancomycin,Random 28.1 ug/mL
[2017-06-24] MEDS: DIVALPROEX 250 MG TABLET.DR PO SCH (09:34)
[2017-06-24] MEDS: FOLIC ACID-VIT B COMPLEX-VIT C 1 CAP PO SCH (09:34)
[2017-06-24] MEDS: HEPARIN SODIUM,PORCINE 5,000 UNIT/ML 1 ML VIAL SQ SCH (09:34)
[2017-06-24] MEDS: ATORVASTATIN 40 MG TAB PO SCH (09:34)
[2017-06-24] MEDS: NIFEdipine XL 90 MG TAB.ER.24 PO SCH (09:35)
[2017-06-24] MEDS: METOPROLOL TARTRATE 25 MG TAB PO SCH (09:35)
[2017-06-24] MEDS: LACOSAMIDE 50 MG TABLET PO SCH (09:35)
[2017-06-24] MEDS: HYDROcodone/APAP 5-325MG 1 EACH TAB PO PRN (09:36)
[2017-06-24] MEDS: PRAZOSIN 1 MG CAP PO SCH (09:36)
--- NOTE | 2017-06-24 09:51 | P.PN ---
Subjective Patient is seen in follow-up for end-stage renal disease. She is maintained on hemodialysis on a Thursday schedule via left upper extremity AV fistula. Patient presented with ulceration of her right foot. Cultures are positive for MRSA infection. She is maintained on antibiotics per infectious disease recommendations. No active complaints at this time. Hemodynamically stable. She is scheduled to be discharged today. Vital signs are stable. General: The patient appeared well nourished and normally developed. HEENT: Head exam is unremarkable. Neck is without jugular venous distension. LUNGS: Lungs are clear to auscultation and percussion. Breath sounds decreased. HEART: Rate and Rhythm are regular. First and second heart sounds normal. No murmurs, rubs or gallops. ABDOMEN: Abdominal exam reveals normal bowel sounds. Non-tender and non- distended. No evidence of peritonitis. EXTREMITITES: No clubbing, cyanosis, or edema. No obvious drainage noted. Objective - Vital Signs Vital signs: Vital Signs Temp 96.5 F L 06/24/17 04:00 Pulse 68 06/24/17 04:00 Resp 20 06/24/17 04:00 BP 139/63 06/24/17 04:00 Pulse Ox 98 06/24/17 04:00 Intake & Output 06/23/17 06/24/17 06/24/17 18:59 06:59 18:59 Intake Total 702 140 0 Output Total 50 0 Balance 652 140 0 Weight 82.9 kg 82.5 kg Intake: Oral 702 140 0 Output: Urine 50 Stool 0 Other: Voiding Method Bedside Commode Bedside Commode # Voids 1 - Labs CBC & Chem 7: 06/19/17 17:00 06/24/17 06:19 Labs: Abnormal Lab Results - Last 24 Hours (Table) 06/23/17 06/23/17 06/24/17 Range/Units 16:30 20:42 05:53 Sodium (137-145) mmol/L BUN (7-17) mg/dL Creatinine (0.52-1.04) mg/dL POC Glucose (mg/dL) 141 H 129 H 105 H (75-99) mg/dL 06/24/17 Range/Units 06:19 Sodium 136 L (137-145) mmol/L BUN 38 H (7-17) mg/dL Creatinine 6.70 H* (0.52-1.04) mg/dL POC Glucose (mg/dL) (75-99) mg/dL Microbiology - Last 24 Hours (Table) 06/19/17 17:00 Blood Culture - Preliminary Blood No Growth after 96 hours Assessment and Plan Plan: Assessment: #1. End-stage renal disease maintained on hemodialysis on a Thursday schedule via left upper extremity AV fistula. #2. Hyperkalemia secondary to chronic kidney disease and metabolic acidosis. Improved post HD. #3. Metabolic acidosis secondary to chronic kidney disease. #4. Hypertension with chronic kidney disease, partially related to missed dialysis. Now controlled. #5. Right foot ulcer maintained on antibiotics. #6. Diabetes mellitus. Plan: Hemodialysis tomorrow. Maintain Renvela 3 times daily with meals. Antibiotics per infectious disease recommendations. Maintain home antihypertensives. Repeat electrolytes in the morning. Monitor vancomycin levels - target level of 15. Plans for discharge today.
[2017-06-24] MEDS: PIPERACILLIN-TAZOBACTAM 3.375 GM in DEXTROSE/WATER 1 50ML.BAG IVPB SCH (10:10)
[2017-06-24 11:18] VITALS: BP 103/53; PULSE 66; RESP 18; TEMP 97.9
[2017-06-24 11:53] LABS: Glucose,Whole Blood 126 mg/dL (75-99)
--- NOTE | 2017-06-25 20:30 | DS ---
DISCHARGE SUMMARY DATE OF ADMISSION: 06/19/2017. DATE OF DISCHARGE: 06/23/2017 FINAL DIAGNOSES: 1. Acute right big toe infected ulcer in a diabetic. Acute osteomyelitis of the right big toe with cultures growing MRSA. 2. End-stage kidney disease, on hemodialysis Thursday, and Thursday. 3. 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 4. Tonic-clonic seizure disorder. 5. Diabetic retinopathy with poor eyesight secondary to diabetes. 6. Essential hypertension. 7. Hyperkalemia from end-stage kidney disease. CONSULTATIONS: 1. Dr. Cuadra from Nephrology. 2. Dr. Salgado from Infectious Disease. 3. Dr. Coates from Vascular Surgery. HOSPITAL COURSE: This patient presented with a wound on the right foot big toe, somewhat infected. Debridement was carried out by Dr. Coates. The patient did have a bone scan that was felt to be osteomyelitis of the right big toe. Patient will complete a course of antibiotics. Otherwise, patient is feeling well. Pain is controlled. Tolerating a diet. Patient's white count is normal. She is afebrile. DISCHARGE MEDICATIONS: 1. Lipitor 40 mg a day. 2. Nifedipine ER 90 mg a day. 3. Valproic acid 500 mg p.o. q.12. 4. Protonix 40 mg with breakfast. 5. Ventolin HFA 1 or 2 puffs q.i.d. p.r.n. 6. Depakote 250 mg a day. 7. Vimpat 50 mg p.o. b.i.d. 8. Santyl 1 application topically at bedtime. 9. Nephrocaps 1 capsule each daily. 10.Lopressor 25 p.o. b.i.d. 11.Minipress 2 mg p.o. b.i.d. 12.Renvela 800 mg p.o. t.i.d. 13.Vancomycin to be administered with hemodialysis. FOLLOWUP: 1. Follow up with Dr. Salgado in 2 weeks. 2. Follow up with Dr. Eve Martin in 3 days. 3. Follow up with Dr. Devin Coates on July 02, 2017. Vancomycin to be given with hemodialysis. Wound care per Dr. Salgado and Dr. Coates. PHYSICAL EXAMINATION: LUNGS: Decreased breath sounds. CARDIOVASCULAR: First and second sounds normal. PSYCH: Alert and oriented x3. MMODL / IJN: [id number] /
== END 2017-06-24 13:16 | disposition home health service (06) | DRG 623 ==
LOC: EC 13:51 → 6SEL 18:12
PROVIDERS: ADMIT Hospitalist; ATTEND Hospitalist
PROC: 0JBQ0ZZ Excision of Right Foot Subcutaneous Tissue and Fascia, Open Approach (ICD-10-PCS; principal; 2017-06-20)
PROC: 5A1D70Z Performance of Urinary Filtration, Intermittent, Less than 6 Hours Per Day (ICD-10-PCS; 2017-06-20)
DX: E11.621 Type 2 diabetes mellitus with foot ulcer (principal); M86.171 Other acute osteomyelitis, right ankle and foot; E87.2 Acidosis; I12.0 Hypertensive chronic kidney disease with stage 5 chronic kidney disease or end stage renal disease; E11.22 Type 2 diabetes mellitus with diabetic chronic kidney disease; E11.40 Type 2 diabetes mellitus with diabetic neuropathy, unspecified; N18.6 End stage renal disease; E11.319 Type 2 diabetes mellitus with unspecified diabetic retinopathy without macular edema; E87.5 Hyperkalemia; E87.70 Fluid overload, unspecified; G40.409 Other generalized epilepsy and epileptic syndromes, not intractable, without status epilepticus; E11.69 Type 2 diabetes mellitus with other specified complication; L97.514 Non-pressure chronic ulcer of other part of right foot with necrosis of bone; B95.62 Methicillin resistant Staphylococcus aureus infection as the cause of diseases classified elsewhere; E83.89 Other disorders of mineral metabolism; L84 Corns and callosities; D63.1 Anemia in chronic kidney disease; Z99.2 Dependence on renal dialysis; Z91.15 Patient's noncompliance with renal dialysis; E03.9 Hypothyroidism, unspecified; H54.8 Legal blindness, as defined in USA; Z79.899 Other long term (current) drug therapy; Z91.19 Patient's noncompliance with other medical treatment and regimen; Z87.891 Personal history of nicotine dependence; Z86.73 Personal history of transient ischemic attack (TIA), and cerebral infarction without residual deficits; Z98.51 Tubal ligation status; Z89.432 Acquired absence of left foot; Z98.42 Cataract extraction status, left eye; Z96.1 Presence of intraocular lens; Z83.3 Family history of diabetes mellitus; Z82.49 Family history of ischemic heart disease and other diseases of the circulatory system; Z82.3 Family history of stroke
CPT/HCPCS: 36415; 78315; 80048; 80053; 80202; 81001; 83036; 83735; 84100; 84132; 85025; 86140; 87040; 87070; 87077; 87186; 87205; 90935; 93005; 96365; 96375; 99284

== ENCOUNTER 2017-08-03 08:55 | Inpatient (IN) | payer MEDICARE, OTHER ==
[2017-08-03 09:56] LABS: Basophils % (A) 0 %; Eosinophils % (A) 1 %; HCT 26.8 % (34.0-46.0); Lymphocytes # (A) 0.7 k/uL (1.0-4.8); Lymphocytes % (A) 7 %; MCH 30.9 pg (25.0-35.0); MCHC 32.6 g/dL (31.0-37.0); MCV 94.9 fL (80.0-100.0); Mean Platelet Volume 7.4; Monocytes # (A) 0.6 k/uL (0-1.0); Monocytes % (A) 6 %; Neutrophils # (A) 7.5 k/uL (1.3-7.7); Neutrophils % (A) 85 %; Platelet Count 155 k/uL (150-450); RBC 2.83 m/uL (3.80-5.40); RDW 14.9 % (11.5-15.5); WBC 8.8 k/uL (3.8-10.6)
[2017-08-03 09:59] LABS: HGB 8.7 gm/dL (11.4-16.0)
--- NOTE | 2017-08-03 10:21 | XR ---
EXAMINATION TYPE: XR chest 2V DATE OF EXAM: 08/03/2017 COMPARISON: 09/03/2016 TECHNIQUE: PA and lateral views submitted. HISTORY: Cough FINDINGS: Diffuse pleural-parenchymal changes throughout the right lung. Some of which have a nodular pattern. Reticular densities at the right lung base are stable from the prior exam. Vascular stenting noted in volving the left extremity. No pneumothorax. Heart size stable. No pleural effusion. IMPRESSION: 1. Diffuse right-sided infiltrate with chronic appearing reticular pattern at the right lung base. Co rrelate for pneumonia with overlying superimposed chronic lung disease. Somewhat nodular pattern. The refore, follow-up to resolution to exclude underlying neoplasm.
[2017-08-03 10:24] LABS: Albumin 3.3 g/dL (3.5-5.0); Calcium 9.4 mg/dL (8.4-10.2); Magnesium 2.2 mg/dL (1.6-2.3); Phosphorus 5.4 mg/dL (2.5-4.5); Potassium 4.7 mmol/L (3.5-5.1); Total Bilirubin 0.5 mg/dL (0.2-1.3); Total Protein 5.9 g/dL (6.3-8.2)
--- NOTE | 2017-08-03 10:49 | ED ---
URI HPI - General Chief Complaint: Upper Respiratory Infection Stated Complaint: weakness Time Seen by Provider: 08/03/17 09:09 Source: patient, RN notes reviewed Mode of arrival: wheelchair Limitations: no limitations - History of Present Illness Initial Comments: This a 41-year-old female presents emergency Department chief complaint generalized weakness. Patient states she's had cough and congestion last week progressively getting worse. She states this caused her to miss her last 2 dialysis appointments. Her last dialysis was . Patient states that she 's had a cough which productive. She is concerned about possible pneumonia. Patient reports subjective fever at home. Denies any nausea vomiting diarrhea constipation. Denies any headache or dizziness. Patient has no chest pain - Related Data Home Medications Medication Instructions Recorded Confirmed Atorvastatin [Lipitor] 40 mg PO DAILY 09/03/16 08/03/17 NIFEdipine [NIFEdipine ER] 90 mg PO DAILY 09/03/16 08/03/17 Valproic Acid 500 mg PO Q12H 09/03/16 08/03/17 Albuterol Inhaler [Ventolin Hfa 1 - 2 puff INHALATION RT-QID PRN 05/07/17 Inhaler] Divalproex [Depakote] 250 mg PO DAILY 06/09/17 08/03/17 Folic Acid-Vit B Complex-Vit C 1 cap PO DAILY 08/03/17 08/03/17 [Nephrocaps] Previous Rx's Medication Instructions Recorded Pantoprazole [Protonix] 40 mg PO AC-BRKFST #30 tab 09/05/16 Lacosamide [Vimpat] 50 mg PO BID #60 tablet 06/12/17 Collagenase [Santyl] 1 applic TOPICAL HS #1 applic 06/23/17 Metoprolol Tartrate [Lopressor] 25 mg PO BID #60 tab 06/23/17 Prazosin [Minipress] 2 mg PO BID #60 cap 06/23/17 Sevelamer [Renvela] 800 mg PO TID-W/MEALS #90 tab 06/23/17 Allergies Allergy/AdvReac Type Severity Reaction Status Date / Time No Known Allergies Allergy Verified 08/03/17 10:17 Review of Systems ROS Statement: Those systems with pertinent positive or pertinent negative responses have been documented in the HPI. ROS Other: All systems not noted in ROS Statement are negative. Past Medical History Past Medical History: CVA/TIA, Diabetes Mellitus, Dialysis, Hypertension, Renal Disease, Seizure Disorder, Thyroid Disorder Additional Past Medical History / Comment(s): rt great toe wound. diabetes mellitus type II-diet controlled, end-stage renal disease currently on hemodialysis for the past 3 years tue/ur/sat., normocytic anemia, CVA was comatose for 6 months/vented/peg tube-no residual, TIA, seizure disorder with last seizure 05/07/17, hypothyroidism but pt states now controlled, patient is legally blind with diabetic retinopathy and retinal hemorrhage-can see shadows with L eye, hx of head trauma and concussion, History of Any Multi-Drug Resistant Organisms: MRSA Date of last positivie culture/infection: 06/19/17 MDRO Source:: right toe Past Surgical History: Section, Tubal Ligation Additional Past Surgical History / Comment(s): right arm shunt(ACTIVE), ( LT ARM SHUNT CLOGGED NON FUNCTIONING). toes amputated ON LT FOOT. PARTIAL left foot AMP, LT CATARACT REMOVED HAS LENS IMPLANT Past Anesthesia/Blood Transfusion Reactions: No Reported Reaction Past Psychological History: No Psychological Hx Reported Smoking Status: Former smoker Past Alcohol Use History: None Reported Past Drug Use History: None Reported - Past Family History Mother Family Medical History: CVA/TIA, Myocardial Infarction ([place]), Renal Disease Father Family Medical History: Congestive Heart Failure (CHF), CVA/TIA, Diabetes Mellitus, Hypertension, Vascular Disorder Additional Family Medical History / Comment(s): bka General Exam Limitations: no limitations General appearance: alert, in no apparent distress Head exam: Present: atraumatic, normocephalic, normal inspection Eye exam: Present: normal appearance, PERRL, EOMI. Absent: scleral icterus, conjunctival injection, periorbital swelling ENT exam: Present: normal exam, normal oropharynx, mucous membranes moist Neck exam: Present: normal inspection, full ROM. Absent: tenderness, meningismus, lymphadenopathy Respiratory exam: Present: rhonchi. Absent: normal lung sounds bilaterally, respiratory distress, wheezes, rales, stridor Cardiovascular Exam: Present: regular rate, normal rhythm, normal heart sounds. Absent: systolic murmur, diastolic murmur, rubs, gallop, clicks GI/Abdominal exam: Present: soft, normal bowel sounds. Absent: distended, tenderness, guarding, rebound, rigid Course Vital Signs 08/03/17 09:05 Temperature 98.4 F Pulse Rate 95 Respiratory 16 Rate Blood Pressure 137/68 O2 Sat by Pulse 100 Oximetry Medical Decision Making - Lab Data Result diagrams: 08/03/17 09:45 08/03/17 09:45 Lab Results 08/03/17 08/03/17 08/03/17 Range/Units 09:38 09:45 09:45 WBC 8.8 (3.8-10.6) k/uL RBC 2.83 L (3.80-5.40) m/uL Hgb 8.7 L D (11.4-16.0) gm/dL Hct 26.8 L (34.0-46.0) % MCV 94.9 (80.0-100.0) fL MCH 30.9 (25.0-35.0) pg MCHC 32.6 (31.0-37.0) g/dL RDW 14.9 (11.5-15.5) % Plt Count 155 (150-450) k/uL Neutrophils % 85 % Lymphocytes % 7 % Monocytes % 6 % Eosinophils % 1 % Basophils % 0 % Neutrophils # 7.5 (1.3-7.7) k/uL Lymphocytes # 0.7 L (1.0-4.8) k/uL Monocytes # 0.6 (0-1.0) k/uL Eosinophils # 0.0 (0-0.7) k/uL Basophils # 0.0 (0-0.2) k/uL Sodium 136 L (137-145) mmol/L Potassium 4.7 (3.5-5.1) mmol/L Chloride 97 L (98-107) mmol/L Carbon Dioxide 17 L (22-30) mmol/L Anion Gap 22 mmol/L BUN 64 H (7-17) mg/dL Creatinine 11.14 H* (0.52-1.04) mg/dL Est GFR (CKD-EPI)AfAm 4 (>60 ml/min/1.73 sqM) Est GFR (CKD-EPI)NonAf 4 (>60 ml/min/1.73 sqM) Glucose 105 H (74-99) mg/dL Calcium 9.4 (8.4-10.2) mg/dL Phosphorus 5.4 H (2.5-4.5) mg/dL Magnesium 2.2 (1.6-2.3) mg/dL Total Bilirubin 0.5 (0.2-1.3) mg/dL AST 11 L (14-36) U/L ALT 16 (9-52) U/L Alkaline Phosphatase 62 (38-126) U/L Total Protein 5.9 L (6.3-8.2) g/dL Albumin 3.3 L (3.5-5.0) g/dL Amylase 52 (30-110) U/L Lipase 107 (23-300) U/L Influenza Type A RNA Not Detected (Not Detectd) Influenza Type B (PCR) Not Detected (Not Detectd) Disposition Clinical Impression: Pneumonia, History of noncompliance with medical treatment, Renal failure Disposition: ADMITTED IP TO THIS HOSP Condition: Fair Referrals: Eve Martin MD [Primary Care Provider] - 1-2 days
[2017-08-03] MEDS ORDERED: PIPERACILLIN-TAZOBACTAM 3.375 GM in DEXTROSE/WATER 1 50ML.BAG IVPB STA (10:52)
[2017-08-03] MEDS ORDERED: VANCOMYCIN IV PER PHARMACY 1 EACH MISC MISCELLANE PRN (10:52)
[2017-08-03] MEDS ORDERED: IPRATROPIUM-ALBUTEROL 3 ML NEB INHALATION PRN (10:53)
[2017-08-03] MEDS ORDERED: PNEUMONIA PROTOCOL UTILIZED 1 EACH MISC PO PRN (10:53)
[2017-08-03] MEDS ORDERED: VANCOMYCIN 1,500 MG in SODIUM CHLORIDE 0.9% 250 ML IVPB ONE (11:30)
[2017-08-03 12:47] LABS: Glucose,Whole Blood 135 mg/dL (75-99)
[2017-08-03] MEDS ORDERED: ALBUTEROL NEBULIZED 2.5 MG/3 ML INHALATION PRN (17:16)
[2017-08-03 17:35] LABS: Glucose,Whole Blood 154 mg/dL (75-99)
[2017-08-03] MEDS: VALPROIC ACID ORAL SOLN 250 MG/5 ML CUP PO SCH (18:01)
[2017-08-03] MEDS: SEVELAMER 800 MG TAB PO SCH (18:02)
[2017-08-03] MEDS: PRAZOSIN 1 MG CAP PO SCH (21:11)
[2017-08-03] MEDS: HYDROcodone/APAP 5-325MG 1 EACH TAB PO PRN (21:11)
[2017-08-03] MEDS: HEPARIN SODIUM,PORCINE 5,000 UNIT/ML 1 ML VIAL SQ SCH (21:12)
[2017-08-03] MEDS: METOPROLOL TARTRATE 25 MG TAB PO SCH (21:12)
[2017-08-03] MEDS: COLLAGENASE 250 UNIT/GM OINTMENT 30 GM TUBE TOPICAL SCH (21:12)
[2017-08-03] MEDS: PIPERACILLIN-TAZOBACTAM 3.375 GM in DEXTROSE/WATER 1 50ML.BAG IVPB SCH (21:14)
--- NOTE | 2017-08-03 23:54 | P.HPIM ---
History of Present Illness H&P Date: 08/03/17 Chief Complaint: Cough congestion and shakiness Patient is a 41-year-old female with a known history of hypertension, diabetes type 2, seizure disorder, hypothyroidism and ESRD on hemodialysis Thursday through right upper extremity AV graft came to the hospital with complaints of cough congestion and shakiness. Patient was also having generalized weakness. Says symptoms have been progressing for the past 1 week. Patient did miss her last 2 hemodialysis sessions. Cough with whitish sputum production. Patient was also having subjective fevers at home. Patient was concerned about possible pneumonia and came to the hospital for further evaluation. Denied any complaints of headache or dizziness or lightheadedness. No complaints of chest pain. No nausea vomiting or abdominal pain. Patient denied any difficulty swallowing. Chest x-ray showed diffuse right-sided infiltrate with chronic-appearing reticular pattern in the right lung base. Correlate for pneumonia with superimposed chronic lung disease. Influenza negative. WBC 8.8 Review of Systems Constitutional: Patient does have subjective fevers and chills at home. Does have generalized weakness and malaise. Abdomen: Patient denied nausea vomiting and diarrhea and abdominal pain. Cardiovascular: Patient denies any chest pain or short of breath no palpitations. No leg swelling Respiratory: Cough with whitish sputum production and shortness of breath. Neurologic: Patient denied any numbness or tingling headache. Musculoskeletal: Patient denies any complaints of joint swelling or deformity. Skin: Negative Psychiatric: Negative Endocrine: No heat or cold intolerance. No recent weight gain. Genitourinary: No dysuria or hematuria. All other 14 point ROS negative except the above Past Medical History Past Medical History: CVA/TIA, Diabetes Mellitus, Dialysis, Hypertension, Renal Disease, Seizure Disorder, Thyroid Disorder Additional Past Medical History / Comment(s): Pt recently admitted to [facility] on with acute R great toe infected ulcer/osteomyelitis/MRSA and had debridement. Other hx: Diabetes mellitus type II-diet controlled, end-stage renal disease currently on hemodialysis for the past 3 years thu//sat., normocytic anemia, CVA was comatose for 6 months/vented/peg tube-no residual, TIA, seizure disorder with last seizure 05/07/17, hypothyroidism but pt states now controlled, patient is legally blind with diabetic retinopathy and retinal hemorrhage bilaterally-can see shadows with L eye, hx of head trauma and concussion. History of Any Multi-Drug Resistant Organisms: MRSA Date of last positivie culture/infection: 06/19/17 MDRO Source:: right toe Past Surgical History: Section, Orthopedic Surgery, Tubal Ligation Additional Past Surgical History / Comment(s): 06/20/17 R great toe debridement/ excision, right arm shunt(ACTIVE), ( LT ARM SHUNT CLOGGED NON FUNCTIONING), toes amputated ON LT FOOT, PARTIAL left foot AMP, LT CATARACT REMOVED HAS LENS IMPLANT Past Anesthesia/Blood Transfusion Reactions: No Reported Reaction Smoking Status: Former smoker - Past Family History Mother Family Medical History: CVA/TIA, Myocardial Infarction ([place]), Renal Disease Father Family Medical History: Congestive Heart Failure (CHF), CVA/TIA, Diabetes Mellitus, Hypertension, Vascular Disorder Additional Family Medical History / Comment(s): bka Medications and Allergies Home Medications Medication Instructions Recorded Confirmed Type Atorvastatin [Lipitor] 40 mg PO DAILY 09/03/16 08/03/17 History NIFEdipine [NIFEdipine ER] 90 mg PO DAILY 09/03/16 08/03/17 History Valproic Acid 500 mg PO Q12H 09/03/16 08/03/17 History Pantoprazole [Protonix] 40 mg PO AC-BRKFST #30 tab 09/05/16 08/03/17 Rx Albuterol Inhaler [Ventolin Hfa 1 - 2 puff INHALATION RT-QID PRN 05/07/17 History Inhaler] Divalproex [Depakote] 250 mg PO DAILY 06/09/17 08/03/17 History Lacosamide [Vimpat] 50 mg PO BID #60 tablet 06/12/17 08/03/17 Rx Collagenase [Santyl] 1 applic TOPICAL HS #1 applic 06/23/17 08/03/17 Rx Metoprolol Tartrate [Lopressor] 25 mg PO BID #60 tab 06/23/17 08/03/17 Rx Prazosin [Minipress] 2 mg PO BID #60 cap 06/23/17 08/03/17 Rx Sevelamer [Renvela] 800 mg PO TID-W/MEALS #90 tab 06/23/17 08/03/17 Rx Folic Acid-Vit B Complex-Vit C 1 cap PO DAILY 08/03/17 08/03/17 History [Nephrocaps] Allergies Allergy/AdvReac Type Severity Reaction Status Date / Time No Known Allergies Allergy Verified 08/03/17 10:17 Physical Exam Vitals: Vital Signs Temp Pulse Pulse Resp BP BP Pulse Ox 08/03/17 15:00 98.1 F 79 20 168/81 96 08/03/17 13:03 97.8 F 86 16 174/83 98 08/03/17 11:27 98.2 F 81 18 164/72 99 08/03/17 09:05 98.4 F 95 16 137/68 100 Intake and Output 08/03/17 08/03/17 08/03/17 06:59 14:59 22:59 Other: Voiding Method Toilet # Voids 2 Weight 84 kg PHYSICAL EXAMINATION: Patient is lying in the bed comfortably, no acute distress, awake alert and oriented.. HEENT: Normocephalic. Neck is supple. Pupils reactive. Nostrils clear. Oral cavity is moist. Ears reveal no drainage. Neck reveals no JVD, carotid bruits, or thyromegaly. CHEST EXAMINATION: Trachea is central. Symmetrical expansion. Bilateral diffuse rhonchi and coarse breath sounds. No wheezing nonlabored breathing CARDIAC: Normal S1, S2 with no gallops. No murmurs ABDOMEN: Soft. Bowel sounds normal. No organomegaly. No abdominal bruits. Extremities: reveal no edema. No clubbing or cyanosis Neurologically awake, alert, oriented x3 with well-coordinated movements. No focal deficits noted Skin: No rash or skin lesions. Psychiatric: Cooperative. Nonsuicidal Musculoskeletal: No joint swelling or deformity. Normal range of motion. Results CBC & Chem 7: 08/03/17 09:45 08/03/17 09:45 Labs: Abnormal Lab Results - Last 24 Hours (Table) 08/03/17 08/03/17 08/03/17 Range/Units 09:45 09:45 12:31 RBC 2.83 L (3.80-5.40) m/uL Hgb 8.7 L D (11.4-16.0) gm/dL Hct 26.8 L (34.0-46.0) % Lymphocytes # 0.7 L (1.0-4.8) k/uL Sodium 136 L (137-145) mmol/L Chloride 97 L (98-107) mmol/L Carbon Dioxide 17 L (22-30) mmol/L BUN 64 H (7-17) mg/dL Creatinine 11.14 H* (0.52-1.04) mg/dL Glucose 105 H (74-99) mg/dL POC Glucose (mg/dL) 135 H (75-99) mg/dL Phosphorus 5.4 H (2.5-4.5) mg/dL AST 11 L (14-36) U/L Total Protein 5.9 L (6.3-8.2) g/dL Albumin 3.3 L (3.5-5.0) g/dL Thrombosis Risk Factor Assmnt - DVT/VTE Prophylaxis DVT/VTE Prophylaxis: Pharmacologic Prophylaxis ordered - Choose All That Apply Any of the Below Risk Factors Present?: Yes Each Factor Represents 1 point: Age 41-60 years, Obesity (BMI >25), Serious lung disease incl. pneumonia (< 1month) Other Risk Factors: No Other congenital or acquired thrombophilia - If yes, enter type in comment: No Thrombosis Risk Factor Assessment Total Risk Factor Score: 3 Thrombosis Risk Factor Assessment Level: Moderate Risk Assessment and Plan Assessment: Acute right lung pneumonia ESRD on hemodialysis Thursday right upper extremity AV graft Diabetes type 2. Diet-controlled Hypertension uncontrolled Previous history of smoking Seizure disorder Hypothyroidism Patient history of right great toe infected ulcer/osteoarthritis/MRSA and debridement Patient is legally blind with diabetic retinopathy and retinal hemorrhage bilaterally History of head trauma and concussion DVT prophylaxis Plan: Patient will be Nude on vancomycin and Zosyn. Follow up culture reports. Nephrology was consulted. We will continue the home medications and follow closely. Further recommendations based on the clinical course. Time with Patient: Greater than 30
[2017-08-04] MEDS: LACOSAMIDE 50 MG TABLET PO SCH ×3 (00:58→21:30)
[2017-08-04] MEDS: VALPROIC ACID ORAL SOLN 250 MG/5 ML CUP PO SCH ×2 (06:04→17:22)
[2017-08-04 07:21] LABS: Glucose,Whole Blood 88 mg/dL (75-99)
--- NOTE | 2017-08-04 08:41 | XR ---
EXAMINATION TYPE: XR chest 2V DATE OF EXAM: 08/04/2017 COMPARISON: 08/03/2017 TECHNIQUE: PA and lateral views submitted. HISTORY: Pneumonia FINDINGS: Diffuse pleural-parenchymal changes throughout the right lung. Some of which have a nodular pattern. Reticular densities at the right lung base are stable from the prior exam. Vascular stenting noted in volving the left extremity. No pneumothorax. Heart size stable. No pleural effusion. IMPRESSION: 1. Diffuse right-sided infiltrate with chronic appearing reticular pattern at the right lung base. Co rrelate for pneumonia with overlying superimposed chronic lung disease. Somewhat nodular pattern. The refore, follow-up to resolution to exclude underlying neoplasm.
[2017-08-04] MEDS: ATORVASTATIN 40 MG TAB PO SCH (09:27)
[2017-08-04] MEDS: PANTOPRAZOLE 40 MG TABLET PO SCH (09:27)
[2017-08-04] MEDS: SEVELAMER 800 MG TAB PO SCH ×3 (09:27→17:21)
[2017-08-04] MEDS: METOPROLOL TARTRATE 25 MG TAB PO SCH ×2 (09:28→21:30)
[2017-08-04] MEDS: PIPERACILLIN-TAZOBACTAM 3.375 GM in DEXTROSE/WATER 1 50ML.BAG IVPB SCH ×2 (09:28→21:30)
[2017-08-04] MEDS: DIVALPROEX 250 MG TABLET.DR PO SCH (09:28)
[2017-08-04] MEDS: NIFEdipine XL 90 MG TAB.ER.24 PO SCH (09:28)
[2017-08-04] MEDS: HEPARIN SODIUM,PORCINE 5,000 UNIT/ML 1 ML VIAL SQ SCH ×2 (09:28→21:30)
[2017-08-04] MEDS: PRAZOSIN 1 MG CAP PO SCH ×2 (09:29→21:30)
[2017-08-04] MEDS: HYDROcodone/APAP 5-325MG 1 EACH TAB PO PRN (09:59)
[2017-08-04 12:12] LABS: Glucose,Whole Blood 93 mg/dL (75-99)
[2017-08-04] MEDS ORDERED: VANCOMYCIN 1,500 MG in SODIUM CHLORIDE 0.9% 250 ML IVPB ONE (13:00)
[2017-08-04] MEDS: FOLIC ACID-VIT B COMPLEX-VIT C 1 CAP PO SCH (13:04)
--- NOTE | 2017-08-04 15:31 | P.CNPUL ---
<Denisse Douglas M - Last Filed: 08/04/17 14:55> History of Present Illness Consult date: 08/04/17 Requesting physician: Víctor Fernandez Reason for consult: cough, pneumonia, abnormal CXR/CT Chief complaint: Weakness, fatigue, dry cough, right lower lobe pneumonia History of present illness: Katia is a 41-year-old white female patient of Dr. Eve Martin, who presented to the emergency department on 08/03/2017 at 1047 with a 2 day history of fatigue, increasing weakness, dry cough. Patient was having progressive weakness, to the point where she was having trouble ambulating. Denies any fever or chills, complaining of chest congestion, but cough was nonproductive. Denied any nausea or vomiting, denied any diarrhea. Did have a sore throat. Denies any chest pain. Patient has a history of end-stage renal disease on hemodialysis on Thursday, , Thursday schedule. Patient has missed 2 dialysis appointments related to her progressive weakness. Patient has family members, her sister and brother who are currently ill with a sinus infection. Patient is an ex-smoker, quit 20 years ago, but she does carry [id number] smoking history. No chronic lung conditions, no history of COPD or asthma. Chest x-ray completed in the emergency department showed diffuse right-sided infiltrate with chronic-appearing reticular pattern at the right lung base. Patient is on room air, with O2 sat 97%. No evidence of fever while inpatient. Influenza screen was negative, no evidence of leukocytosis, the CBC was 8.8, hemoglobin is 8.7, sodium is 136, potassium is 4.7, chloride is 97, CO2 17, BUN is 64, creatinine is 11.14. Patient was started on empiric antibiotics in the form of Zosyn and vancomycin. Of note patient also has a chronic wound on her right great toe, with wound cultures positive for MRSA. Patient follows in the wound care center, and the wound has been debrided by Dr. Coates on 2017. Patient is seen in consultation for the right lower lobe pneumonia, on medical surgical floor, she is awake, alert, in no acute distress, and is currently undergoing hemodialysis. Review of Systems All systems: negative Constitutional: Denies chills, Denies fever Eyes: bilateral blurred vision (History of diabetic retinopathy, retinal hemorrhage bilaterally, patient is legally blind), denies pain Ears: deny: decreased hearing Ears, nose, mouth and throat: Reports odynophagia, Denies headache, Denies sore throat Cardiovascular: Denies chest pain, Denies shortness of breath Respiratory: Denies cough Gastrointestinal: Denies abdominal pain, Denies diarrhea, Denies nausea, Denies vomiting Genitourinary: Denies dysuria, Denies hematuria Musculoskeletal: Denies myalgias Integumentary: Reports as per HPI, Reports foot/leg ulcers, Reports wounds, Denies pruritus, Denies rash Neurological: Denies numbness, Denies weakness Psychiatric: Denies anxiety, Denies depression Endocrine: Denies fatigue, Denies weight change Past Medical History Past Medical History: CVA/TIA, Diabetes Mellitus, Dialysis, Hypertension, Renal Disease, Seizure Disorder, Thyroid Disorder Additional Past Medical History / Comment(s): Pt recently admitted to [facility] on with acute R great toe infected ulcer/osteomyelitis/MRSA and had debridement. Other hx: Diabetes mellitus type II-diet controlled, end-stage renal disease currently on hemodialysis for the past 3 years tue//sat., normocytic anemia, CVA was comatose for 6 months/vented/peg tube-no residual, TIA, seizure disorder with last seizure 05/07/17, hypothyroidism but pt states now controlled, patient is legally blind with diabetic retinopathy and retinal hemorrhage bilaterally-can see shadows with L eye, hx of head trauma and concussion. History of Any Multi-Drug Resistant Organisms: MRSA Date of last positivie culture/infection: 06/19/17 MDRO Source:: right toe Past Surgical History: Section, Orthopedic Surgery, Tubal Ligation Additional Past Surgical History / Comment(s): 06/20/17 R great toe debridement/ excision, right arm shunt(ACTIVE), ( LT ARM SHUNT CLOGGED NON FUNCTIONING), toes amputated ON LT FOOT, PARTIAL left foot AMP, LT CATARACT REMOVED HAS LENS IMPLANT Past Anesthesia/Blood Transfusion Reactions: No Reported Reaction Smoking Status: Former smoker - Past Family History Mother Family Medical History: CVA/TIA, Myocardial Infarction ([place]), Renal Disease Father Family Medical History: Congestive Heart Failure (CHF), CVA/TIA, Diabetes Mellitus, Hypertension, Vascular Disorder Additional Family Medical History / Comment(s): bka Medications and Allergies Home Medications Medication Instructions Recorded Confirmed Type Atorvastatin [Lipitor] 40 mg PO DAILY 09/03/16 08/03/17 History NIFEdipine [NIFEdipine ER] 90 mg PO DAILY 09/03/16 08/03/17 History Valproic Acid 500 mg PO Q12H 09/03/16 08/03/17 History Pantoprazole [Protonix] 40 mg PO AC-BRKFST #30 tab 09/05/16 08/03/17 Rx Albuterol Inhaler [Ventolin Hfa 1 - 2 puff INHALATION RT-QID PRN 05/07/17 History Inhaler] Divalproex [Depakote] 250 mg PO DAILY 06/09/17 08/03/17 History Lacosamide [Vimpat] 50 mg PO BID #60 tablet 06/12/17 08/03/17 Rx Collagenase [Santyl] 1 applic TOPICAL HS #1 applic 06/23/17 08/03/17 Rx Metoprolol Tartrate [Lopressor] 25 mg PO BID #60 tab 06/23/17 08/03/17 Rx Prazosin [Minipress] 2 mg PO BID #60 cap 06/23/17 08/03/17 Rx Sevelamer [Renvela] 800 mg PO TID-W/MEALS #90 tab 06/23/17 08/03/17 Rx Folic Acid-Vit B Complex-Vit C 1 cap PO DAILY 08/03/17 08/03/17 History [Nephrocaps] Allergies Allergy/AdvReac Type Severity Reaction Status Date / Time No Known Allergies Allergy Verified 08/03/17 10:17 Physical Exam Vitals: Vital Signs Temp Pulse Resp BP Pulse Ox 08/04/17 09:40 98.2 F 08/04/17 05:20 98.3 F 68 16 168/78 97 08/03/17 23:00 98.3 F 74 16 179/80 97 08/03/17 15:00 98.1 F 79 20 168/81 96 Intake and Output 08/03/17 08/04/17 08/04/17 22:59 06:59 14:59 Other: Voiding Method Toilet # Voids 2 1 # Bowel Movements 2 1 - Constitutional General appearance: average body habitus, no acute distress - EENT Eyes: EOMI, PERRLA ENT: NA/AT, normal oropharynx Ears: bilateral: normal - Neck Neck: no lymphadenopathy Carotids: bilateral: upstroke normal Thyroid: bilateral: normal size - Respiratory Respiratory: right: rales (Coarse inspiratory rales over right posterior lower lobe) - Cardiovascular Rhythm: regular Heart sounds: normal: S1, S2 ankle Peripheral Edema: bilateral: None foot Peripheral Edema: bilateral: None dorsalis pedis Peripheral Pulses: bilateral: Normal - Gastrointestinal General gastrointestinal: no organomegaly, soft, no tenderness - Integumentary Right foot toe wound is covered with the dressing, and was not examined Integumentary: normal turgor - Neurologic Neurologic: CNII-XII intact - Musculoskeletal Right upper arm functioning AV fistula Musculoskeletal: strength equal bilaterally - Psychiatric Psychiatric: A&O x's 3, appropriate affect, intact judgment & insight Results - Laboratory Findings CBC and BMP: 08/03/17 09:45 08/03/17 09:45 Abnormal lab findings: Abnormal Labs 08/03/17 08/03/17 08/03/17 09:45 09:45 12:31 RBC 2.83 L Hgb 8.7 L D Hct 26.8 L Lymphocytes # 0.7 L Sodium 136 L Chloride 97 L Carbon Dioxide 17 L BUN 64 H Creatinine 11.14 H* Glucose 105 H POC Glucose (mg/dL) 135 H Phosphorus 5.4 H AST 11 L Total Protein 5.9 L Albumin 3.3 L 08/03/17 17:10 RBC Hgb Hct Lymphocytes # Sodium Chloride Carbon Dioxide BUN Creatinine Glucose POC Glucose (mg/dL) 154 H Phosphorus AST Total Protein Albumin - Diagnostic Findings Chest x-ray: report reviewed, image reviewed Assessment and Plan Plan: Assessment: #1. Acute right lower lobe pneumonia, community-acquired and the patient has a chronic right great toe wound with recent surgical debridement, and MRSA in the wound cultures. #2. End-stage renal disease, on hemodialysis on Thursday, , Thursday [facility] #3. Diabetes mellitus type 2 #4. Hypertension #5. Seizure disorder #6. Hypothyroidism #7. History of CVA, with prolonged respiratory failure requiring insertion and subsequent removal of a tracheostomy tube #8. Normochromic normocytic anemia #9. History of diabetic retinopathy, and retinal hemorrhage bilaterally, patient is legally blind #10. Chronic wound on the right great toe, osteomyelitis, status post surgical debridement, and wound cultures were positive for MRSA #11. Nicotine dependence, currently in remission, quit 20 years ago, but has a 10 pack year smoking history #12. History of left foot digits amputation Plan: Continue current antibiotic coverage, Zosyn and vancomycin. Continue nebulized bronchodilators, sputum specimen for culture if able to collect. Patient denies any significant dyspnea at this time, no evidence of altered mentation, he is on room air, and maintaining good oxygenation. Nephrology is following, and the patient is receiving her hemodialysis. GI and DVT prophylaxis. Follow- up chest x-ray was reviewed and it showed again diffuse right-sided infiltrate chronic-appearing reticular pattern at the right lung base. We'll continue to follow. I performed a history & physical examination of the patient and discussed their management with my nurse practitioner, Denisse Douglas. I reviewed the nurse practitioner's note and agree with the documented findings and plan of care. Lung sounds are expiratory crackles over right posterior lower lobe. The findings and the impression was discussed with the patient. I attest to the documentation by the nurse practitioner. <Huma Kohli - Last Filed: 08/04/17 18:10> Physical Exam Vitals: Vital Signs Temp Pulse Resp BP Pulse Ox 08/04/17 15:00 63 16 163/73 08/04/17 09:40 98.2 F 08/04/17 05:20 98.3 F 68 16 168/78 97 08/03/17 23:00 98.3 F 74 16 179/80 97 Intake and Output 08/04/17 08/04/17 08/04/17 06:59 14:59 22:59 Other: # Voids 1 0 # Bowel Movements 1 1 Results - Laboratory Findings CBC and BMP: 08/03/17 09:45 08/03/17 09:45 Abnormal lab findings: Abnormal Labs 08/03/17 08/03/17 08/03/17 09:45 09:45 12:31 RBC 2.83 L Hgb 8.7 L D Hct 26.8 L Lymphocytes # 0.7 L Sodium 136 L Chloride 97 L Carbon Dioxide 17 L BUN 64 H Creatinine 11.14 H* Glucose 105 H POC Glucose (mg/dL) 135 H Phosphorus 5.4 H AST 11 L Total Protein 5.9 L Albumin 3.3 L 08/03/17 17:10 RBC Hgb Hct Lymphocytes # Sodium Chloride Carbon Dioxide BUN Creatinine Glucose POC Glucose (mg/dL) 154 H Phosphorus AST Total Protein Albumin Assessment and Plan Plan: The patient is in for a right lower lobe pneumonia. Currently on a combination of Zosyn and vancomycin. Collect sputum Gram stain and culture. Collect blood cultures. We'll continue to follow.
--- NOTE | 2017-08-04 17:24 | CONS ---
CONSULTATION REASON FOR CONSULT: End-stage renal disease. HISTORY OF PRESENT ILLNESS: The patient is a 41-year-old female with end-stage renal disease, on hemodialysis on a Thursday, , Thursday schedule via right arm AV fistula. The patient was admitted to the hospital with complaints of cough which had been going on for about 4-5 days prior to admission. Patient did not have any fever. She felt poorly with increased weakness and lethargy. Chest x-ray on admission showed diffuse right-sided infiltrates. Currently, patient is maintained on antibiotics, and is being treated for pneumonia and states she is feeling slightly better. No complaints of nausea, vomiting, abdominal pain, or diarrhea. PAST MEDICAL HISTORY: End-stage renal disease, on hemodialysis. Anemia of chronic disease, seizure disorder, CKD, mineral bone disorder, hypertension, history of CVA/TIA, type 2 diabetes, hypothyroidism, diabetic retinopathy, retinal hemorrhage, patient is legally blind. PAST SURGICAL HISTORY: , tubal ligation. The right big toe amputation, right arm AV fistula, cataract surgery, partial left foot amputation. SOCIAL HISTORY: Negative for smoking currently, patient is a former smoker. No history of drug abuse or alcohol abuse. MEDICATIONS: Medications at home include Lipitor, nifedipine, Depakote, Protonix, Lopressor, Minipress, Renvela, Nephrocaps. ALLERGIES: None. PHYSICAL EXAMINATION: Patient is comfortable, awake. She is currently seen on dialysis, tolerating treatment well. Blood pressure this morning was 168/78, heart rate of 63 per minute. Patient is afebrile. Examination of the heart S1, S2. Examination of the lungs bilateral breath sounds are heard. Abdomen is soft, nontender. Examination of the lower extremities shows no significant edema. [employer] exam is grossly intact. LABS SHOW: Sodium 136, potassium 4.7, hemoglobin 8.7 g/dL. ASSESSMENT: 1. End-stage renal disease, on hemodialysis on a Thursday, , Thursday schedule via right arm AV fistula. 2. Right lung pneumonia maintained on antibiotics and the patient has received a dose of vancomycin. She is currently on Zosyn. 3. Mineral bone disorder maintained on Renvela. 4. Hypertension, currently controlled. 5. Seizure disorder. Continue her antiseizure medications. PLAN: Hemodialysis today. Next treatment will be on . Continue with the phosphate binders. Increase oral intake. Thank you for this consultation. We will continue to follow the patient with you during her hospitalization. MMODL / IJN: [id number] /
[2017-08-04 17:33] LABS: Glucose,Whole Blood 87 mg/dL (75-99)
[2017-08-04] MEDS: IPRATROPIUM-ALBUTEROL 3 ML NEB INHALATION SCH (20:25)
[2017-08-04 20:33] LABS: Glucose,Whole Blood 130 mg/dL (75-99)
--- NOTE | 2017-08-04 22:15 | PN ---
PROGRESS NOTE DATE OF SERVICE: 08/04/2017. INTERVAL HISTORY: This 41-year-old woman who had a past medical history of chronic atrial fibrillation on hemodialysis, admitted with acute right lung pneumonia. The patient has shortness of breath also. The patient has IV antibiotics. No chest pain. No palpitations. Dr. Kohli and Dr. Dial have been consulted. The patient is on a combination of Zosyn and vancomycin. No chest pain. No palpitations. No fever. EXAM: Alert and oriented x3. The pulse is 63, blood pressure 116/73, respirations 16, temperature is normal. EYES: Conjunctivae normal. NECK: No jugular venous distention. CARDIAC: S1, S2 muffled. RESPIRATORY: Breath sounds diminished in the bases. Bilateral scattered rhonchi and crackles. ABDOMEN: Soft, nontender. LEGS: No edema. NERVOUS SYSTEM: Nonfocal. LABS: Creatinine 11.4. Other labs are noted. Influenza is negative. ASSESSMENT: 1. Acute right lower lobe pneumonia, possibly gram-negative. 2. Chronic renal failure on hemodialysis. 3. Hypertension. 4. Diabetes mellitus type 2. 5. Seizure disorder. 6. Hypothyroidism. RECOMMENDATIONS AND DISCUSSION: Recommend to continue current medical management and symptomatic treatment. Continue with broad-spectrum IV antibiotic. Continue with bronchodilators. Repeat labs. Otherwise, closely follow with Pulmonary and as well as Nephrology. The prognosis is guarded. Further recommendations to follow. MMODL / IJN: [id number] /
[2017-08-05] MEDS: COLLAGENASE 250 UNIT/GM OINTMENT 30 GM TUBE TOPICAL SCH ×2 (00:47→21:07)
[2017-08-05] MEDS: VALPROIC ACID ORAL SOLN 250 MG/5 ML CUP PO SCH ×2 (06:37→17:57)
[2017-08-05 07:17] LABS: Glucose,Whole Blood 97 mg/dL (75-99)
[2017-08-05] MEDS: IPRATROPIUM-ALBUTEROL 3 ML NEB INHALATION SCH ×3 (08:11→20:27)
[2017-08-05] MEDS: DIVALPROEX 250 MG TABLET.DR PO SCH (08:35)
[2017-08-05] MEDS: PIPERACILLIN-TAZOBACTAM 3.375 GM in DEXTROSE/WATER 1 50ML.BAG IVPB SCH ×2 (08:35→21:07)
[2017-08-05] MEDS: NIFEdipine XL 90 MG TAB.ER.24 PO SCH (08:35)
[2017-08-05] MEDS: METOPROLOL TARTRATE 25 MG TAB PO SCH ×2 (08:35→21:07)
[2017-08-05] MEDS: LACOSAMIDE 50 MG TABLET PO SCH ×2 (08:35→21:07)
[2017-08-05] MEDS: PRAZOSIN 1 MG CAP PO SCH ×2 (08:35→21:07)
[2017-08-05] MEDS: PANTOPRAZOLE 40 MG TABLET PO SCH (08:35)
[2017-08-05] MEDS: ATORVASTATIN 40 MG TAB PO SCH (08:35)
[2017-08-05] MEDS: SEVELAMER 800 MG TAB PO SCH ×3 (08:35→17:58)
[2017-08-05] MEDS: HEPARIN SODIUM,PORCINE 5,000 UNIT/ML 1 ML VIAL SQ SCH ×2 (08:35→21:07)
[2017-08-05 08:58] LABS: Basophils % (A) 0 %; Eosinophils % (A) 1 %; HCT 22.1 % (34.0-46.0); Hypochromasia Slight; Lymphocytes # (A) 0.9 k/uL (1.0-4.8); Lymphocytes % (A) 29 %; MCH 31.3 pg (25.0-35.0); MCHC 32.6 g/dL (31.0-37.0); MCV 96.1 fL (80.0-100.0); Mean Platelet Volume 7.9; Monocytes # (A) 0.2 k/uL (0-1.0); Monocytes % (A) 6 %; Neutrophils # (A) 1.9 k/uL (1.3-7.7); Neutrophils % (A) 64 %; Platelet Count 131 k/uL (150-450)
[2017-08-05 09:13] LABS: HGB 7.2 gm/dL (11.4-16.0)
[2017-08-05 09:14] LABS: Calcium 8.9 mg/dL (8.4-10.2); Potassium 3.9 mmol/L (3.5-5.1)
[2017-08-05 12:24] LABS: Glucose,Whole Blood 96 mg/dL (75-99)
[2017-08-05] MEDS: FOLIC ACID-VIT B COMPLEX-VIT C 1 CAP PO SCH (12:53)
--- NOTE | 2017-08-05 13:07 | PN ---
PROGRESS NOTE The patient is seen for followup for end-stage renal disease. She was dialyzed yesterday. The patient was admitted to the hospital with cough and pneumonia. Her chest x-ray shows a right lung infiltrate. The patient is maintained on antibiotics. PHYSICAL EXAMINATION: On examination today, blood pressure is 165/64, heart rate 70 per minute. She is afebrile. Examination of the heart: S1, S2. Examination of lungs: Bilateral breath sounds are heard. Abdomen is soft, nontender. Exam of lower extremity shows no significant edema. LAB: Show sodium 140, potassium 3.9, hemoglobin 7.2 g/dL. ASSESSMENT: 1. End-stage renal disease, on hemodialysis on Thursday, , Thursday schedule. 2. Right lung pneumonia maintained on antibiotics and improving. 3. Hypertension, currently controlled. 4. Seizures, currently well controlled. PLAN: Dialysis will be tomorrow. Continue with antibiotics. MMODL / IJN: [id number] /
[2017-08-05] MEDS ORDERED: DARBEPOETIN ALFA 40 MCG/0.4 ML SYRINGE SQ SCH (13:30)
--- NOTE | 2017-08-05 14:02 | P.PN ---
Subjective Progress Note Date: 08/05/17 Principal diagnosis: Right lower lobe pneumonia Katia is a 41-year-old white female patient of Dr. Eve Martin, who presented to the emergency department on 08/03/2017 at 1047 with a 2 day history of fatigue, increasing weakness, dry cough. Patient was having progressive weakness, to the point where she was having trouble ambulating. Denies any fever or chills, complaining of chest congestion, but cough was nonproductive. Denied any nausea or vomiting, denied any diarrhea. Did have a sore throat. Denies any chest pain. Patient has a history of end-stage renal disease on hemodialysis on Thursday, , Thursday schedule. Patient has missed 2 dialysis appointments related to her progressive weakness. Patient has family members, her sister and brother who are currently ill with a sinus infection. Patient is an ex-smoker, quit 20 years ago, but she does carry [id number] smoking history. No chronic lung conditions, no history of COPD or asthma. Chest x-ray completed in the emergency department showed diffuse right-sided infiltrate with chronic-appearing reticular pattern at the right lung base. Patient is on room air, with O2 sat 97%. No evidence of fever while inpatient. Influenza screen was negative, no evidence of leukocytosis, the CBC was 8.8, hemoglobin is 8.7, sodium is 136, potassium is 4.7, chloride is 97, CO2 17, BUN is 64, creatinine is 11.14. Patient was started on empiric antibiotics in the form of Zosyn and vancomycin. Of note patient also has a chronic wound on her right great toe, with wound cultures positive for MRSA. Patient follows in the wound care center, and the wound has been debrided by Dr. Coates on 2017. Patient is seen in consultation for the right lower lobe pneumonia, on medical surgical floor, she is awake, alert, in no acute distress, and is currently undergoing hemodialysis. The patient is seen again today 08/15/2017 in follow-up on the regular medical floor. She is currently awake and alert in no acute distress. She is resting quite comfortably in bed. She states she is breathing better today as compared to yesterday. She continues with a loose nonproductive cough. No fever chills or night sweats. She has been afebrile. Hemodynamically stable. Maintaining good O2 saturations in the high 90s on room air. Cultures reveal no growth to date. White count 3.0. Hemoglobin 7.2. Creatinine 6.64. Her dialysis days are Thursday. Objective - Vital Signs Vital signs: Vital Signs Temp 98.7 F 08/05/17 07:00 Pulse 67 08/05/17 13:25 Resp 20 08/05/17 07:00 BP 155/64 08/05/17 07:00 Pulse Ox 98 08/05/17 07:00 Intake & Output 08/04/17 08/05/17 08/05/17 18:59 06:59 18:59 Other: Voiding Method Toilet # Voids 0 3 # Bowel Movements 1 2 - Exam - Constitutional General appearance: average body habitus, no acute distress - EENT Eyes: EOMI, PERRLA ENT: NA/AT, normal oropharynx Ears: bilateral: normal - Neck Neck: no lymphadenopathy Carotids: bilateral: upstroke normal Thyroid: bilateral: normal size - Respiratory Respiratory: right: rales (Coarse inspiratory rales over right posterior lower lobe) - Cardiovascular Rhythm: regular Heart sounds: normal: S1, S2 ankle Peripheral Edema: bilateral: None foot Peripheral Edema: bilateral: None dorsalis pedis Peripheral Pulses: bilateral: Normal - Gastrointestinal General gastrointestinal: no organomegaly, soft, no tenderness - Integumentary Right foot toe wound is covered with the dressing, and was not examined Integumentary: normal turgor - Neurologic Neurologic: CNII-XII intact - Musculoskeletal Right upper arm functioning AV fistula Musculoskeletal: strength equal bilaterally - Psychiatric Psychiatric: A&O x's 3, appropriate affect, intact judgment & insight - Labs CBC & Chem 7: 08/05/17 08:17 08/05/17 08:17 Labs: Abnormal Lab Results - Last 24 Hours (Table) 08/04/17 08/05/17 08/05/17 Range/Units 20:32 08:17 08:17 WBC 3.0 L (3.8-10.6) k/uL RBC 2.30 L (3.80-5.40) m/uL Hgb 7.2 L D (11.4-16.0) gm/dL Hct 22.1 L (34.0-46.0) % Plt Count 131 L (150-450) k/uL Lymphocytes # 0.9 L (1.0-4.8) k/uL BUN 34 H (7-17) mg/dL Creatinine 6.64 H* (0.52-1.04) mg/dL Glucose 110 H (74-99) mg/dL POC Glucose (mg/dL) 130 H (75-99) mg/dL Microbiology - Last 24 Hours (Table) 08/03/17 14:21 Blood Culture - Preliminary Blood No Growth after 24 hours Assessment and Plan Assessment: Assessment: #1. Acute right lower lobe pneumonia, community-acquired and the patient has a chronic right great toe wound with recent surgical debridement, and MRSA in the wound cultures. #2. End-stage renal disease, on hemodialysis on Thursday, , Thursday [facility] #3. Diabetes mellitus type 2 #4. Hypertension #5. Seizure disorder #6. Hypothyroidism #7. History of CVA, with prolonged respiratory failure requiring insertion and subsequent removal of a tracheostomy tube #8. Normochromic normocytic anemia #9. History of diabetic retinopathy, and retinal hemorrhage bilaterally, patient is legally blind #10. Chronic wound on the right great toe, osteomyelitis, status post surgical debridement, and wound cultures were positive for MRSA #11. Nicotine dependence, currently in remission, quit 20 years ago, but has a 10 pack year smoking history #12. History of left foot digits amputation Plan: The patient was seen and evaluated by Dr. Kohli. She is improved today as compared to yesterday. We'll continue with her current treatment plan. We'll repeat a chest x-ray in the a.m. We will continue to follow and make further recommendations based on her clinical status. We'll discharge in the a.m. I, the cosigning physician, performed a history & physical examination of the patient. Lungs sounds scattered rhonchi. Maintaining good O2 saturations in the 90s on room air. I discussed the assessment and plan of care with my nurse practitioner, Alba Lam. I attest to the above note as dictated by her.
--- NOTE | 2017-08-05 16:01 | PN ---
PROGRESS NOTE DATE OF SERVICE: 08/05/2017 This 41-year-old woman who was admitted with acute right lower lobe pneumonia, possibly Gram-negative, is on multiple antibiotics. The patient is also receiving hemodialysis. The patient is feeling slightly better. The patient is on broad-spectrum IV antibiotics. Patient is also followed by Dr. Kohli and Dr. Dial. On exam, patient is alert, oriented x3. Pulse is 70, blood pressure 150/64, respiratory rate 20, temperature 98.7, pulse ox 98% on room air. HEENT: Conjunctivae normal. NECK: No jugular venous distention. CARDIOVASCULAR SYSTEM: S1, S2 muffled. RESPIRATORY SYSTEM: Breath sounds diminished at the bases. A few scattered rhonchi and crackles. ABDOMEN: Soft, nontender. LEGS: No edema. No swelling. NERVOUS SYSTEM: No focal deficit. LABS: WBC 3, hemoglobin 7.2, creatinine 6.64. ASSESSMENT: 1. Acute right lower lobe pneumonia, possibly Gram-negative. 2. Chronic renal failure, on hemodialysis. 3. Hypertension. 4. Diabetes mellitus, type 2. 5. Seizure disorder. 6. History of hypothyroidism. RECOMMENDATIONS AND DISCUSSION: In this 41-year-old woman who presented with multiple complex medical issues, we will monitor the patient closely, continue the current medications, continue symptomatic treatment, continue with broad-spectrum IV antibiotics. The patient is also on vancomycin. I recommend repeat x-ray tomorrow. Continue to monitor. Discussed with Dr. Kohli. Further recommendations to follow. MMODL / GARTHN: [id number] /
[2017-08-05 17:32] LABS: Glucose,Whole Blood 127 mg/dL (75-99)
[2017-08-05 21:32] LABS: Glucose,Whole Blood 150 mg/dL (75-99)
[2017-08-06] MEDS: VALPROIC ACID ORAL SOLN 250 MG/5 ML CUP PO SCH ×2 (06:16→17:10)
[2017-08-06] MEDS: IPRATROPIUM-ALBUTEROL 3 ML NEB INHALATION SCH ×3 (07:11→19:49)
[2017-08-06 07:55] LABS: Glucose,Whole Blood 95 mg/dL (75-99)
[2017-08-06] MEDS: PIPERACILLIN-TAZOBACTAM 3.375 GM in DEXTROSE/WATER 1 50ML.BAG IVPB SCH ×2 (09:19→20:33)
[2017-08-06] MEDS: DIVALPROEX 250 MG TABLET.DR PO SCH (09:21)
[2017-08-06] MEDS: HEPARIN SODIUM,PORCINE 5,000 UNIT/ML 1 ML VIAL SQ SCH ×2 (09:21→20:34)
[2017-08-06] MEDS: ATORVASTATIN 40 MG TAB PO SCH (09:21)
[2017-08-06] MEDS: PANTOPRAZOLE 40 MG TABLET PO SCH (09:21)
[2017-08-06] MEDS: SEVELAMER 800 MG TAB PO SCH ×3 (09:21→17:13)
[2017-08-06] MEDS: PRAZOSIN 1 MG CAP PO SCH ×2 (09:22→20:34)
[2017-08-06] MEDS: NIFEdipine XL 90 MG TAB.ER.24 PO SCH (09:22)
[2017-08-06] MEDS: METOPROLOL TARTRATE 25 MG TAB PO SCH ×2 (09:22→20:33)
[2017-08-06] MEDS: LACOSAMIDE 50 MG TABLET PO SCH ×2 (09:27→20:33)
[2017-08-06 10:13] LABS: Calcium 8.4 mg/dL (8.4-10.2); Potassium 3.6 mmol/L (3.5-5.1)
[2017-08-06 10:14] LABS: Basophils % (A) 0 %; Eosinophils # (A) 0.1 k/uL (0-0.7); Eosinophils % (A) 2 %; HCT 20.7 % (34.0-46.0); Lymphocytes # (A) 0.9 k/uL (1.0-4.8); Lymphocytes % (A) 30 %; MCH 31.1 pg (25.0-35.0); MCV 94.1 fL (80.0-100.0); Mean Platelet Volume 7.2; Monocytes # (A) 0.2 k/uL (0-1.0); Monocytes % (A) 8 %; Neutrophils # (A) 1.7 k/uL (1.3-7.7); Neutrophils % (A) 60 %; Platelet Count 135 k/uL (150-450); RDW 14.8 % (11.5-15.5); WBC 2.9 k/uL (3.8-10.6)
[2017-08-06 10:18] LABS: Vancomycin,Random 23.7 ug/mL
[2017-08-06 10:25] LABS: HGB 6.8 gm/dL (11.4-16.0)
[2017-08-06 12:04] LABS: Glucose,Whole Blood 91 mg/dL (75-99)
--- NOTE | 2017-08-06 12:16 | P.PN ---
Subjective Progress Note Date: 08/06/17 Principal diagnosis: Right lower lobe pneumonia Katia is a 41-year-old white female patient of Dr. Eve Martin, who presented to the emergency department on 08/03/2017 at 1047 with a 2 day history of fatigue, increasing weakness, dry cough. Patient was having progressive weakness, to the point where she was having trouble ambulating. Denies any fever or chills, complaining of chest congestion, but cough was nonproductive. Denied any nausea or vomiting, denied any diarrhea. Did have a sore throat. Denies any chest pain. Patient has a history of end-stage renal disease on hemodialysis on Thursday, , Thursday schedule. Patient has missed 2 dialysis appointments related to her progressive weakness. Patient has family members, her sister and brother who are currently ill with a sinus infection. Patient is an ex-smoker, quit 20 years ago, but she does carry [id number] smoking history. No chronic lung conditions, no history of COPD or asthma. Chest x-ray completed in the emergency department showed diffuse right-sided infiltrate with chronic-appearing reticular pattern at the right lung base. Patient is on room air, with O2 sat 97%. No evidence of fever while inpatient. Influenza screen was negative, no evidence of leukocytosis, the CBC was 8.8, hemoglobin is 8.7, sodium is 136, potassium is 4.7, chloride is 97, CO2 17, BUN is 64, creatinine is 11.14. Patient was started on empiric antibiotics in the form of Zosyn and vancomycin. Of note patient also has a chronic wound on her right great toe, with wound cultures positive for MRSA. Patient follows in the wound care center, and the wound has been debrided by Dr. Coates on 2017. Patient is seen in consultation for the right lower lobe pneumonia, on medical surgical floor, she is awake, alert, in no acute distress, and is currently undergoing hemodialysis. The patient is seen again today 08/05/2017 in follow-up on the regular medical floor. She is currently awake and alert in no acute distress. She is resting quite comfortably in bed. She states she is breathing better today as compared to yesterday. She continues with a loose nonproductive cough. No fever chills or night sweats. She has been afebrile. Hemodynamically stable. Maintaining good O2 saturations in the high 90s on room air. Cultures reveal no growth to date. White count 3.0. Hemoglobin 7.2. Creatinine 6.64. Her dialysis days are Thursday. The patient is seen again today 08/06/2017 in follow-up on the regular medical floor. She is awake and alert in no acute distress. She denies any worsening shortness of breath, cough or congestion. Maintaining good O2 saturations in the upper 90s on room air. Afebrile. Blood cultures reveal no growth to date. White count 2.9. Hemoglobin 6.8. Creatinine 6.70. She is currently receiving hemodialysis treatment and a unit of packed red blood cells will be replaced. Objective - Vital Signs Vital signs: Vital Signs Temp 97.7 F 08/06/17 07:00 Pulse 80 08/06/17 07:33 Resp 18 08/06/17 07:00 BP 163/66 08/06/17 07:00 Pulse Ox 97 08/06/17 07:00 Intake & Output 08/05/17 08/06/17 08/06/17 18:59 06:59 18:59 Intake Total 200 799 Balance 200 799 Intake: Oral 200 799 Other: Voiding Method Toilet Toilet # Voids 1 1 # Bowel Movements 1 - Exam - Constitutional General appearance: average body habitus, no acute distress - EENT Eyes: EOMI, PERRLA, poor vision ENT: NA/AT, normal oropharynx Ears: bilateral: normal - Neck Neck: no lymphadenopathy Carotids: bilateral: upstroke normal Thyroid: bilateral: normal size - Respiratory Respiratory: right: rales (Coarse inspiratory rales over right posterior lower lobe) - Cardiovascular Rhythm: regular Heart sounds: normal: S1, S2 ankle Peripheral Edema: bilateral: None foot Peripheral Edema: bilateral: None dorsalis pedis Peripheral Pulses: bilateral: Normal - Gastrointestinal General gastrointestinal: no organomegaly, soft, no tenderness - Integumentary Right foot toe wound is covered with the dressing, and was not examined Integumentary: normal turgor - Neurologic Neurologic: CNII-XII intact - Musculoskeletal Right upper arm functioning AV fistula Musculoskeletal: strength equal bilaterally - Psychiatric Psychiatric: A&O x's 3, appropriate affect, intact judgment & insight - Labs CBC & Chem 7: 08/06/17 08:37 08/06/17 08:37 Labs: Abnormal Lab Results - Last 24 Hours (Table) 08/05/17 08/05/17 08/06/17 Range/Units 17:21 21:26 08:37 WBC 2.9 L (3.8-10.6) k/uL RBC 2.20 L (3.80-5.40) m/uL Hgb 6.8 L* (11.4-16.0) gm/dL Hct 20.7 L (34.0-46.0) % Plt Count 135 L (150-450) k/uL Lymphocytes # 0.9 L (1.0-4.8) k/uL BUN (7-17) mg/dL Creatinine (0.52-1.04) mg/dL POC Glucose (mg/dL) 127 H 150 H (75-99) mg/dL 08/06/17 Range/Units 08:37 WBC (3.8-10.6) k/uL RBC (3.80-5.40) m/uL Hgb (11.4-16.0) gm/dL Hct (34.0-46.0) % Plt Count (150-450) k/uL Lymphocytes # (1.0-4.8) k/uL BUN 35 H (7-17) mg/dL Creatinine 6.70 H* (0.52-1.04) mg/dL POC Glucose (mg/dL) (75-99) mg/dL Microbiology - Last 24 Hours (Table) 08/03/17 14:21 Blood Culture - Preliminary Blood No Growth after 48 hours Assessment and Plan Assessment: Assessment: #1. Acute right lower lobe pneumonia, community-acquired and the patient has a chronic right great toe wound with recent surgical debridement, and MRSA in the wound cultures. #2. End-stage renal disease, on hemodialysis on Thursday, , Thursday #3. Diabetes mellitus type 2 #4. Hypertension #5. Seizure disorder #6. Hypothyroidism #7. History of CVA, with prolonged respiratory failure requiring insertion and subsequent removal of a tracheostomy tube #8. Normochromic normocytic anemia #9. History of diabetic retinopathy, and retinal hemorrhage bilaterally, patient is legally blind #10. Chronic wound on the right great toe, osteomyelitis, status post surgical debridement, and wound cultures were positive for MRSA #11. Nicotine dependence, currently in remission, quit 20 years ago, but has a 10 pack year smoking history #12. History of left foot digits amputation the patient #13. Anemia of chronic disease. Current hemoglobin 6.8, receiving 1 unit of packed red blood cells today. Plan: The patient was seen and evaluated by Dr. Kohli. She is improved today as compared to yesterday. We will repeat a chest x-ray after her dialysis treatment. She could most likely go home today. Completed course of antibiotics in the form of Augmentin. I, the cosigning physician, performed a history & physical examination of the patient. Lungs sounds scattered rhonchi. Maintaining good O2 saturations in the 90s on room air. I discussed the assessment and plan of care with my nurse practitioner, Alba Lam. I attest to the above note as dictated by her.
[2017-08-06] MEDS: FOLIC ACID-VIT B COMPLEX-VIT C 1 CAP PO SCH (12:21)
--- NOTE | 2017-08-06 13:00 | XR ---
EXAMINATION TYPE: XR chest 1V portable DATE OF EXAM: 08/06/2017 COMPARISON: 08/04/2017 HISTORY: Shortness of breath TECHNIQUE: Single frontal view of the chest is obtained. FINDINGS: Reticular nodular pattern in the right lower lobe is stable. Left lung is clear. Vascular stents on the left are seen. There is no interstitial edema or pneumothorax. No pleural effusion. The re is some improving aeration of the right upper lobe with some residual density persistent. IMPRESSION: 1. Improving right upper lobe infiltrate. 2. Chronic appearing reticular nodular changes involving the right lung base are stable..
--- NOTE | 2017-08-06 13:59 | PN ---
PROGRESS NOTE Patient is seen on hemodialysis, is tolerating the treatment well. Blood pressure is slightly on the high side. PHYSICAL EXAMINATION: Blood pressure is 163/66, heart rate 80 per minute. She is afebrile. Examination of the heart, S1, S2. Examination of the lungs, bilateral breath sounds are heard. Abdomen is soft, nontender. Examination of the lower extremities shows no significant edema. [employer] exam is grossly intact. LABS: Show sodium 138, potassium 3.6, hemoglobin was down to 6.6 g/dL. ASSESSMENT: 1. End-stage renal disease, on hemodialysis on a Thursday, , Thursday schedule. 2. Right lung pneumonia, maintained on antibiotics. 3. Anemia with hemoglobin down to 6.8, no active bleeding noted. The patient is maintained on Aranesp. 4. Seizure disorder. 5. Hypertension, currently controlled. PLAN: Continue with the Aranesp. Check stool for occult blood. May transfuse 1 unit packed RBCs and repeat hemoglobin in a.m. MMODL / IJN: [id number] /
[2017-08-06 17:25] LABS: Glucose,Whole Blood 117 mg/dL (75-99)
[2017-08-06 17:27] LABS: Hepatitis B Surface AB- Quant 78.4 mIU/mL
--- NOTE | 2017-08-06 17:41 | PN ---
PROGRESS NOTE DATE OF SERVICE: 08/06/2017 This 41-year-old woman who was admitted with acute right lower lobe pneumonia possibly gram-negative is being closely monitored. The patient also had hemoglobin 6.8, and 1 unit transfusion has been added. No chest pain. No palpitations. No fever. PHYSICAL EXAM: Alert and oriented x3. Pulse is 77, blood pressure 116/74, respiration 18, temperature 99.1, pulse ox is 97% on room air. HEENT is conjunctivae pale. Oral mucosa moist. Neck is no jugular venous distention. No carotid bruit. No lymph node enlargement. Cardiovascular S1, S1. Respirations: Breath sounds diminished in the bases. A few scattered rhonchi and crackles. ABDOMEN: Soft, nontender. No mass palpable. Legs no edema. No swelling. Central nervous system: No focal deficits. LABS: WBC 2.3, hemoglobin 6.8. Creatinine 6.70. ASSESSMENT: 1. Acute right lower lobe pneumonia possibly gram-negative. 2. Chronic renal failure, on hemodialysis. 3. Anemia of chronic disease. 4. Hypertension. 5. Diabetes type 2. 6. Seizure disorder. 7. History of hypothyroidism. RECOMMENDATIONS AND DISCUSSION: Recommend to continue current medications, continue symptomatic treatment. Otherwise at this time I would recommend 1 unit transfusion. Continue the hemodialysis. Further recommendations to follow. MMODL / IJN: [id number] /
[2017-08-06] MEDS: COLLAGENASE 250 UNIT/GM OINTMENT 30 GM TUBE TOPICAL SCH (20:34)
[2017-08-06 21:43] LABS: Glucose,Whole Blood 133 mg/dL (75-99)
[2017-08-07] MEDS: VALPROIC ACID ORAL SOLN 250 MG/5 ML CUP PO SCH (06:26)
[2017-08-07 07:00] VITALS: BP 159/78; RESP 16; TEMP 98.7
[2017-08-07 07:07] LABS: Glucose,Whole Blood 96 mg/dL (75-99)
[2017-08-07] MEDS: IPRATROPIUM-ALBUTEROL 3 ML NEB INHALATION SCH (07:22)
[2017-08-07 07:32] VITALS: PULSE 72
[2017-08-07] MEDS: HEPARIN SODIUM,PORCINE 5,000 UNIT/ML 1 ML VIAL SQ SCH (08:05)
[2017-08-07] MEDS: PANTOPRAZOLE 40 MG TABLET PO SCH (08:05)
[2017-08-07] MEDS: LACOSAMIDE 50 MG TABLET PO SCH (08:05)
[2017-08-07] MEDS: DIVALPROEX 250 MG TABLET.DR PO SCH (08:05)
[2017-08-07] MEDS: SEVELAMER 800 MG TAB PO SCH ×2 (08:05→12:28)
[2017-08-07] MEDS: PIPERACILLIN-TAZOBACTAM 3.375 GM in DEXTROSE/WATER 1 50ML.BAG IVPB SCH (08:05)
[2017-08-07] MEDS: ATORVASTATIN 40 MG TAB PO SCH (08:05)
[2017-08-07] MEDS: PRAZOSIN 1 MG CAP PO SCH (08:06)
[2017-08-07] MEDS: NIFEdipine XL 90 MG TAB.ER.24 PO SCH (08:06)
[2017-08-07] MEDS: METOPROLOL TARTRATE 25 MG TAB PO SCH (08:06)
[2017-08-07 08:38] LABS: Basophils % (A) 1 %; Eosinophils # (A) 0.1 k/uL (0-0.7); Eosinophils % (A) 3 %; HCT 30.2 % (34.0-46.0); Lymphocytes # (A) 1.1 k/uL (1.0-4.8); Lymphocytes % (A) 25 %; MCH 30.8 pg (25.0-35.0); MCHC 32.9 g/dL (31.0-37.0); MCV 93.5 fL (80.0-100.0); Mean Platelet Volume 7.3; Monocytes # (A) 0.3 k/uL (0-1.0); Monocytes % (A) 8 %; Neutrophils # (A) 2.9 k/uL (1.3-7.7); Neutrophils % (A) 63 %; Platelet Count 178 k/uL (150-450); Poikilocytosis Slight; RBC 3.23 m/uL (3.80-5.40); RDW 15.1 % (11.5-15.5); WBC 4.5 k/uL (3.8-10.6)
[2017-08-07 08:48] LABS: Calcium 9.4 mg/dL (8.4-10.2); Potassium 3.8 mmol/L (3.5-5.1)
[2017-08-07 08:55] LABS: HGB 9.9 gm/dL (11.4-16.0)
[2017-08-07 09:55] LABS: Vancomycin,Random 19.1 ug/mL
[2017-08-07] MEDS ORDERED: VANCOMYCIN 1,500 MG in SODIUM CHLORIDE 0.9% 250 ML IVPB ONE (12:00)
[2017-08-07 12:27] LABS: Glucose,Whole Blood 115 mg/dL (75-99)
--- NOTE | 2017-08-07 12:27 | PN ---
PROGRESS NOTE Patient is seen for followup for end-stage renal disease. She was admitted to the hospital with right lung pneumonia. The patient states she is feeling better. Her respiratory status has improved. However, yesterday her hemoglobin was down to 6.8 g/dL. Patient was transfused 1 unit packed RBCs. There was no active bleeding noted. PHYSICAL EXAMINATION: On examination today, blood pressure is 159/78, heart rate 70 per minute. She is afebrile. EXAMINATION OF THE HEART: S1, S2. EXAMINATION OF THE LUNGS: Bilateral breath sounds are heard. Abdomen is soft, nontender. Examination of the lower extremities shows no significant edema. LAB: Labs show hemoglobin 9.9, sodium 141, potassium 3.8. ASSESSMENT: 1. End-stage renal disease, on hemodialysis on a Thursday, , Thursday schedule. 2. Anemia of chronic disease. 3. Acute drop in anemia, possible gastrointestinal bleed. No evidence of active bleeding. Stool for occult blood has been ordered. Patient is maintained on Aranesp. 4. Right lung pneumonia, maintained on antibiotics and currently improving. Blood cultures are negative. PLAN: Hemodialysis in a.m.. MMODL / IJN: [id number] /
[2017-08-07] MEDS: FOLIC ACID-VIT B COMPLEX-VIT C 1 CAP PO SCH (12:28)
--- NOTE | 2017-08-07 15:25 | P.PN ---
Subjective Progress Note Date: 08/07/17 Principal diagnosis: Right lower lobe pneumonia Katia is a 41-year-old white female patient of Dr. Eve Martin, who presented to the emergency department on 08/03/2017 at 1047 with a 2 day history of fatigue, increasing weakness, dry cough. Patient was having progressive weakness, to the point where she was having trouble ambulating. Denies any fever or chills, complaining of chest congestion, but cough was nonproductive. Denied any nausea or vomiting, denied any diarrhea. Did have a sore throat. Denies any chest pain. Patient has a history of end-stage renal disease on hemodialysis on Thursday, , Thursday schedule. Patient has missed 2 dialysis appointments related to her progressive weakness. Patient has family members, her sister and brother who are currently ill with a sinus infection. Patient is an ex-smoker, quit 20 years ago, but she does carry [id number] smoking history. No chronic lung conditions, no history of COPD or asthma. Chest x-ray completed in the emergency department showed diffuse right-sided infiltrate with chronic-appearing reticular pattern at the right lung base. Patient is on room air, with O2 sat 97%. No evidence of fever while inpatient. Influenza screen was negative, no evidence of leukocytosis, the CBC was 8.8, hemoglobin is 8.7, sodium is 136, potassium is 4.7, chloride is 97, CO2 17, BUN is 64, creatinine is 11.14. Patient was started on empiric antibiotics in the form of Zosyn and vancomycin. Of note patient also has a chronic wound on her right great toe, with wound cultures positive for MRSA. Patient follows in the wound care center, and the wound has been debrided by Dr. Coates on 2017. Patient is seen in consultation for the right lower lobe pneumonia, on medical surgical floor, she is awake, alert, in no acute distress, and is currently undergoing hemodialysis. The patient is seen again today 08/05/2017 in follow-up on the regular medical floor. She is currently awake and alert in no acute distress. She is resting quite comfortably in bed. She states she is breathing better today as compared to yesterday. She continues with a loose nonproductive cough. No fever chills or night sweats. She has been afebrile. Hemodynamically stable. Maintaining good O2 saturations in the high 90s on room air. Cultures reveal no growth to date. White count 3.0. Hemoglobin 7.2. Creatinine 6.64. Her dialysis days are Thursday. The patient is seen again today 08/06/2017 in follow-up on the regular medical floor. She is awake and alert in no acute distress. She denies any worsening shortness of breath, cough or congestion. Maintaining good O2 saturations in the upper 90s on room air. Afebrile. Blood cultures reveal no growth to date. White count 2.9. Hemoglobin 6.8. Creatinine 6.70. She is currently receiving hemodialysis treatment and a unit of packed red blood cells will be replaced. On 08/08/2007 follow-up on medical surgical floor. Continues to improve, denies any worsening dyspnea, denies any chest wall tenderness, hemoptysis or worsening congestion. She's, comfortable, and maintaining saturation above 90 percent on room air, vital signs are stable, patient afebrile. His labs showed a CBC of 4.5, hemoglobin 9.9, electrolytes are within normal limits, renal profile is improving, BUN is down to 22, creatinine is 5.6. Patient was transfused with 1 unit of packed red blood cells yesterday for hemoglobin of 6.8. Blood culture remains negative since admission. Patient has been treated with emanation of Zosyn and vancomycin. And clinically she continues to improve. Overall patient is stable, and stable for discharge home today Objective - Vital Signs Vital signs: Vital Signs Temp 98.7 F 08/07/17 06:59 Pulse 72 08/07/17 07:32 Resp 16 08/07/17 06:59 BP 159/78 08/07/17 06:59 Pulse Ox 92 L 08/07/17 06:59 Intake & Output 08/06/17 08/07/17 08/07/17 18:59 06:59 18:59 Intake Total 790 100 360 Balance 790 100 360 Intake: Oral 480 100 360 Blood Product 310 Rc As-1 Unit 310 [id number] Other: # Voids 1 1 # Bowel Movements 1 - Exam - Constitutional General appearance: average body habitus, no acute distress - EENT Eyes: EOMI, PERRLA, poor vision ENT: NA/AT, normal oropharynx Ears: bilateral: normal - Neck Neck: no lymphadenopathy Carotids: bilateral: upstroke normal Thyroid: bilateral: normal size - Respiratory Respiratory: right: rales (Coarse inspiratory rales over right posterior lower lobe) - Cardiovascular Rhythm: regular Heart sounds: normal: S1, S2 ankle Peripheral Edema: bilateral: None foot Peripheral Edema: bilateral: None dorsalis pedis Peripheral Pulses: bilateral: Normal - Gastrointestinal General gastrointestinal: no organomegaly, soft, no tenderness - Integumentary Right foot toe wound is covered with the dressing, and was not examined Integumentary: normal turgor - Neurologic Neurologic: CNII-XII intact - Musculoskeletal Right upper arm functioning AV fistula Musculoskeletal: strength equal bilaterally - Psychiatric Psychiatric: A&O x's 3, appropriate affect, intact judgment & insight - Labs CBC & Chem 7: 08/07/17 08:08 08/07/17 08:08 Labs: Abnormal Lab Results - Last 24 Hours (Table) 08/06/17 08/06/17 08/06/17 Range/Units 08:37 10:49 17:20 RBC (3.80-5.40) m/uL Hgb (11.4-16.0) gm/dL Hct (34.0-46.0) % BUN (7-17) mg/dL Creatinine (0.52-1.04) mg/dL Glucose (74-99) mg/dL POC Glucose (mg/dL) 117 H (75-99) mg/dL Hep Bs Antibody Reactive H (Non-Reactive) Crossmatch See Detail 08/06/17 08/07/17 08/07/17 Range/Units 21:04 08:08 08:08 RBC 3.23 L (3.80-5.40) m/uL Hgb 9.9 L D (11.4-16.0) gm/dL Hct 30.2 L (34.0-46.0) % BUN 22 H (7-17) mg/dL Creatinine 5.60 H* (0.52-1.04) mg/dL Glucose 133 H (74-99) mg/dL POC Glucose (mg/dL) 133 H (75-99) mg/dL Hep Bs Antibody (Non-Reactive) Crossmatch 08/07/17 Range/Units 12:25 RBC (3.80-5.40) m/uL Hgb (11.4-16.0) gm/dL Hct (34.0-46.0) % BUN (7-17) mg/dL Creatinine (0.52-1.04) mg/dL Glucose (74-99) mg/dL POC Glucose (mg/dL) 115 H (75-99) mg/dL Hep Bs Antibody (Non-Reactive) Crossmatch Microbiology - Last 24 Hours (Table) 08/03/17 14:21 Blood Culture - Preliminary Blood No Growth after 72 hours Assessment and Plan Plan: Assessment: #1. Acute right lower lobe pneumonia, community-acquired and the patient has a chronic right great toe wound with recent surgical debridement, and MRSA in the wound cultures. #2. End-stage renal disease, on hemodialysis on Thursday, , Thursday [facility] #3. Diabetes mellitus type 2 #4. Hypertension #5. Seizure disorder #6. Hypothyroidism #7. History of CVA, with prolonged respiratory failure requiring insertion and subsequent removal of a tracheostomy tube #8. Normochromic normocytic anemia #9. History of diabetic retinopathy, and retinal hemorrhage bilaterally, patient is legally blind #10. Chronic wound on the right great toe, osteomyelitis, status post surgical debridement, and wound cultures were positive for MRSA #11. Nicotine dependence, currently in remission, quit 20 years ago, but has a 10 pack year smoking history #12. History of left foot digits amputation Plan: Patient was seen and evaluated by Dr. Kohli, she continues to improve, she is afebrile, she had hemodialysis yesterday, and post hemodialysis chest x-ray was reviewed, and showed improvement right upper lobe infiltrate and chronic reticulonodular changes in the right lung base which is stable compared to previous exams. Patient is stable, afebrile, no increasing dyspnea, she is maintaining stable oxygenation. From pulmonary standpoint patient is stable for discharge home today on outpatient course of Augmentin. Cultures remain negative to date. Follow-up with Dr. Kohli in the office in 7-10 days I performed a history & physical examination of the patient and discussed their management with my nurse practitioner, Denisse Douglas. I reviewed the nurse practitioner's note and agree with the documented findings and plan of care. Lung sounds are expiratory crackles over right posterior lower lobe. The findings and the impression was discussed with the patient. I attest to the documentation by the nurse practitioner. Time with Patient: Less than 30
--- NOTE | 2017-08-08 05:03 | DS ---
DISCHARGE SUMMARY DATE OF SERVICE: 08/07/2017. FINAL DIAGNOSES: 1. Acute right lower lobe pneumonia possibly gram-negative. 2. Chronic kidney disease, on hemodialysis. 3. Anemia of chronic disease. 4. Hypertension. 5. Diabetes type 2. 6. Seizure disorder. 7. History of hypothyroidism. Patient being discharged in stable condition with guarded prognosis. Total time taken: 35 minutes. HISTORY OF PRESENT ILLNESS: This 41-year-old woman with a past medical history of multiple medical problems being admitted to the hospital with acute right lower lobe pneumonia, the patient treated with IV antibiotics, Zosyn and vancomycin, improved significantly. Hemodialysis continued. Patient also had anemia, transfused. Dr. Kohli saw the patient. Cleared the patient for discharge. The patient improved significantly. PHYSICAL EXAMINATION: On exam vitals are stable. Cardiovascular: S1. S2. Abdomen soft. Nervous system: No focal deficits. DISCHARGE ADVICE AND MEDICATIONS: 1. Diet is cardiac diet. 2. Activity limited until followup. 3. Follow up Dr. Eve Martin in 1 week. 4. Follow with Dr. Dial and Dr. Kohli as advised. MEDICATIONS: 1. Albuterol 1-2 p.o. every 6 hours p.r.n. 2. Augmentin 875 mg 1 p.o. b.i.d. for 1 week. 3. Lipitor 40 mg p.o. daily. 4. Santyl 1 application topically daily. 5. aransep 40 mg q.7 days. 6. Depakote 250 mg p.o. daily. 7. Folic acid 1 mg daily. 8. DuoNeb q.i.d. and p.r.n. 9. Vimpat 50 mg p.o. b.i.d. 10.Lopressor 25 mg p.o. b.i.d. 11.Multivitamins one p.o. daily. 12.nifedipiine er 90 mg p.o. daily. 13.Protonix 40 mg daily. 14.Minipress 2 mg p.o. b.i.d. 15.Renvela 800 mg t.i.d. 16.Valproic acid 500 mg p.o. b.i.d. Please send a copy to Dr. Dial, Dr. Martin and Dr. Kohli. Once again, the patient is being discharged in stable condition with guarded prognosis. MMODL / IJN: [id number] / [facility]ITALNeida
== END 2017-08-07 13:57 | disposition home or self-care (01) | DRG 177 ==
LOC: EC 08:55 → 4MS4W 11:28
PROVIDERS: ADMIT Hospitalist; ATTEND Hospitalist
PROC: 5A1D70Z Performance of Urinary Filtration, Intermittent, Less than 6 Hours Per Day (ICD-10-PCS; principal; 2017-08-06)
PROC: 30230N1 Transfusion of Nonautologous Red Blood Cells into Peripheral Vein, Open Approach (ICD-10-PCS; 2017-08-06)
DX: J15.6 Pneumonia due to other Gram-negative bacteria (principal); N18.6 End stage renal disease; M86.9 Osteomyelitis, unspecified; I12.0 Hypertensive chronic kidney disease with stage 5 chronic kidney disease or end stage renal disease; D63.8 Anemia in other chronic diseases classified elsewhere; E03.9 Hypothyroidism, unspecified; E11.22 Type 2 diabetes mellitus with diabetic chronic kidney disease; E11.319 Type 2 diabetes mellitus with unspecified diabetic retinopathy without macular edema; G40.909 Epilepsy, unspecified, not intractable, without status epilepticus; H54.8 Legal blindness, as defined in USA; I48.2 Chronic atrial fibrillation; E83.89 Other disorders of mineral metabolism; S91.101A Unspecified open wound of right great toe without damage to nail, initial encounter; J02.9 Acute pharyngitis, unspecified; Z99.2 Dependence on renal dialysis; Z91.19 Patient's noncompliance with other medical treatment and regimen; Z87.891 Personal history of nicotine dependence; Z86.73 Personal history of transient ischemic attack (TIA), and cerebral infarction without residual deficits; Z79.899 Other long term (current) drug therapy; Z98.51 Tubal ligation status; Z86.14 Personal history of Methicillin resistant Staphylococcus aureus infection; Z98.42 Cataract extraction status, left eye; Z89.432 Acquired absence of left foot; Z82.49 Family history of ischemic heart disease and other diseases of the circulatory system; Z83.3 Family history of diabetes mellitus; Z82.3 Family history of stroke; Z84.1 Family history of disorders of kidney and ureter
CPT/HCPCS: 36415; 71045; 71046; 80048; 80053; 80202; 82150; 83690; 83735; 84100; 85025; 86706; 86850; 86900; 86901; 86920; 87040; 87340; 87502; 90935; 94640; 94760; 96365; 99284